=== PATIENT | female | born 1965 | race Caucasian/White ===

== ENCOUNTER → 2017-10-04 14:15 | Outpatient (CLI) | payer OTHER, SELFPAY ==
[2017-10-04 16:14] LABS: Basophil# 0.05 X10^3/uL; Basophil% 0.8 % (0-1); Eosinophil# 0.56 X10^3/uL; Eosinophils% 8.6 % (0-5); Hematocrit 39.5 % (37-47); Lymphocyte % 35.5 % (19-41); Mean Corp Hgb Conc 32.9 g/gl (32-36); Mean Corpuscular Hgb 28.7 pg (27.0-32.0); Mean Corpuscular Volume 87.2 fL (81-99); Monocyte# 0.52 X10^3/uL; Neutrophil # 2.99 X10^3/uL (2.7-7.7); Neutrophil % 46.2 % (47-70); Platelet Count 274 K/mm3 (150-450); RBC Distribution Width CV 15.6 % (11.6-14.6); RBC Distribution Width SD 49.2 fl (35.1-43.9); Red Blood Count 4.53 M/mm3 (4.2-5.4); White Blood Count 6.5 K/mm3 (4.4-11.0)
[2017-10-04 16:17] LABS: POSITIVE COUNT NO; POSITIVE DIFFERENTIAL NO; POSITIVE MORPHOLOGY NO
[2017-10-09 14:06] LABS: Aspirgillus flavus Negative (Neg:<1:1); Aspirgillus fumigatus Negative (Neg:<1:1); Aspirgillus niger Negative (Neg:<1:1)
[2017-10-10 03:06] LABS: Alternaria alternata <0.10 kU/L (Class 0); Aspergillus fumigatus <0.10 kU/L (Class 0); Bahia Grass <0.10 kU/L (Class 0); Bermuda Grass <0.10 kU/L (Class 0); Bluegrass, Kentucky <0.10 kU/L (Class 0); Cat Hair/Dander, Standard <0.10 kU/L (Class 0); Cedar, Mountain <0.10 kU/L (Class 0); Cladosporium herbarum <0.10 kU/L (Class 0); Cockroach, American <0.10 kU/L (Class 0); D farinae Mite 0.45 kU/L (Class I); D pteronyssinus 1.25 kU/L (Class II); Dog Epithelia <0.10 kU/L (Class 0); Elm, American White <0.10 kU/L (Class 0); Hazelnut Tree <0.10 kU/L (Class 0); Hickory, White <0.10 kU/L (Class 0); Johnson Grass <0.10 kU/L (Class 0); Maple/Box Elder <0.10 kU/L (Class 0); Mucor racemosus <0.10 kU/L (Class 0); Mugwort <0.10 kU/L (Class 0); Mulberry, White <0.10 kU/L (Class 0); Oak, White <0.10 kU/L (Class 0); Penicillium chrysogen <0.10 kU/L (Class 0); Pigweed, Rough <0.10 kU/L (Class 0); Plantain, English <0.10 kU/L (Class 0); Ragweed, Short/Common <0.10 kU/L (Class 0); Sheep Sorrel(Dock) <0.10 kU/L (Class 0); Stemphylium herbarum <0.10 kU/L (Class 0); Sweet Gum <0.10 kU/L (Class 0); Sycamore, American <0.10 kU/L (Class 0)
[2017-10-10 08:51] LABS: Immunoglobulin E 25 IU/mL (0-100)
[2017-10-10 08:52] LABS: Nettle <0.10 kU/L (Class 0)
== END ==
PROVIDERS: Visit Provider Internal Medicine Critical Care Medicine
DX: J45.909 Unspecified asthma, uncomplicated (principal)
CPT/HCPCS: 36415; 82785; 85025; 86003; 86606

== ENCOUNTER → 2017-11-05 14:14 | Outpatient (CLI) | payer OTHER, SELFPAY | DX: Z12.11 Encounter for screening for malignant neoplasm of colon (principal) | CPT/HCPCS: 82274 ==

== ENCOUNTER → 2017-11-09 14:59 | Outpatient (CLI) | payer OTHER, SELFPAY ==
--- NOTE | 2017-11-09 15:00 | CT_ITS ---
STUDY: CT CHEST WITHOUT CONTRAST REASON FOR EXAM: Female, 52 years old. Nodule RADIATION DOSAGE (If Supplied By Facility): CTDIvol = ( 20.15 ) mGy, DLP = ( 795.53 ) mGycm TECHNIQUE: Transaxial imaging was performed without the administration of intravenous contrast material. Individualized dose optimization techniques were used for this CT. COMPARISON: Report of prior study of 04/16/2016. Prior images were not available for comparison. FINDINGS: There is a pleural-based 6 mm nodule of the right lower lobe axial image 77. There is an additional smaller pleural-based plaque-like nodule of the right lower lobe measuring 5 mm at the base, axial image 68. There is no demonstrated pleural abnormality. Normal heart and pericardium. Normal mediastinum. Hilar areas are difficult to evaluate on this noncontrast study. There is no obvious hilar mass or adenopathy. Normal unenhanced pulmonary arteries. Normal aorta arch and descending thoracic aorta. There are degenerative changes of the visualized lower cervical spine. There is endplate spondylosis of the mid to upper thoracic spine. There is hepatomegaly. Hepatic steatosis is present. CT/Chest without Contrast IMPRESSION: Pleural-based right lower lobe nodules as detailed above. Direct comparison with prior CT of 04/16/2016 is recommended. I was unable to view the previous study. Degenerative changes of the visualized lower cervical spine. Endplate spondylosis of the mid to upper thoracic spine. Hepatomegaly. Hepatic steatosis. Electronically Signed: Chau Franco MD at 22:27 EDT , Service support ,
== END ==
PROVIDERS: Visit Provider Internal Medicine Critical Care Medicine
DX: R91.1 Solitary pulmonary nodule (principal)
CPT/HCPCS: 71250

== ENCOUNTER → 2017-11-23 09:08 | Outpatient (CLI) | payer OTHER, SELFPAY ==
--- NOTE | 2017-11-23 09:12 | US_ITS ---
STUDY: ABDOMINAL ULTRASOUND - RIGHT UPPER QUADRANT REASON FOR VISIT: Female, 52 years old. Elevated liver function tests. TECHNIQUE: Ultrasound evaluation of the right upper quadrant was performed with real-time and static magallon-scale imaging. TECHNICAL QUALITY: Limited. Examination limited due to obesity. COMPARISON: None. FINDINGS: Liver: The liver measures 14.0 cm. There is increased echogenicity consistent with fatty infiltration. The bile ducts are within normal limits. There is hepatic color flow. The direction of portal flow is hepatopetal. There is no demonstrated mass lesion. Gallbladder: Normal distended gallbladder. The gallbladder wall measures 2.0 mm. There is a negative sonographic Bhatt's sign. There is no pericholecystic fluid. There are no gallstones. Common Bile Duct (C.B.D.): The common bile duct measures 2.0 mm. Pancreas: There is nonvisualization of the pancreas due to overlying bowel gas. Right Kidney: Normal size of the right kidney. The right kidney measures 13.0 cm x 6.0 cm x 6.1 cm. Normal renal cortex. The right cortex measures 1.4 cm. There is a 1.3 cm x 1.0 cm x 1.1 cm cyst. There is no right hydronephrosis. US/Abdomen Limited IMPRESSION: Fatty infiltration of the liver. Right renal cyst. Electronically Signed: Solitario Johnston MD at 14:42 EDT Tel [phone], Service support ,
== END ==
DX: R74.8 Abnormal levels of other serum enzymes (principal)
CPT/HCPCS: 76705

== ENCOUNTER → 2018-05-23 14:03 | Outpatient (CLI) | payer OTHER, SELFPAY ==
--- NOTE | 2018-05-23 14:05 | CT_ITS ---
STUDY: CT CHEST WITHOUT CONTRAST REASON FOR EXAM: Female, 53 years old. LUNG NODULE F/U, DB, ASTHMA, COPD, EMPHYSEMA, CHF, HTN RADIATION DOSAGE (If Supplied By Facility): CTDIvol = ( 20.15 ) mGy, DLP = ( 735.08 ) mGycm TECHNIQUE: Transaxial imaging was performed without the administration of intravenous contrast material. Individualized dose optimization techniques were used for this CT. COMPARISON: Nov 09 2017 3:02pm FINDINGS: Stable prominence of the axillary lymph nodes. There is a 3.7 mm right lower lobe nodule. SE: 2 IM: 89. There is a 5.9 mm right lower lobe subpleural nodule. SE: 2 IM: 69. There is no demonstrated pleural abnormality. Normal heart and pericardium. Normal mediastinum. Normal hilar regions. Normal unenhanced pulmonary arteries. There is atherosclerotic tortuosity of the aortic arch and descending thoracic aorta. Normal osseous structures. There is no demonstrated abnormality of the visualized upper abdomen. CT/Chest without Contrast IMPRESSION: Stable right lower lobe pulmonary nodules. LUNG RADS: 3 Electronically Signed: Robbin Ling MD at 22:44 EDT , Service support ,
== END ==
PROVIDERS: Visit Provider Nurse Practitioner Acute Care
DX: R91.1 Solitary pulmonary nodule (principal)
CPT/HCPCS: 71250

== ENCOUNTER → 2018-06-09 15:25 | Outpatient (CLI) | payer OTHER, SELFPAY ==
[2018-06-09 17:58] LABS: ALB/GLOB Ratio 1.1 RATIO (0.9-2.4); AST(SGOT) 19 U/L (15-37); Alanine Aminotransfer ALT/SGPT 39 U/L (13-56); Albumin, Serum 3.7 g/dL (3.2-5.0); Alkaline Phosphatase 78 U/L (45-117); Anion Gap 7 (5-15); BUN 14 mg/dL (7-18); BUN/Creat Ratio 21.8 RATIO (10-20); Calcium,Total 8.9 mg/dL (8.5-10.1); Chloride 109 mmol/L (98-107); Creatinine, Serum 0.64 mg/dL (0.55-1.02); EST Glomerular Filtration Rate 104 mL/min (>60); Est Glom Filt Rate - Afr Amer 125 mL/min (>60); Globulin 3.5 g/dL (2.2-4.2); Glucose 104 mg/dL (74-106); Potassium 4.2 mmol/L (3.5-5.1); Protein, Total 7.2 g/dL (6.4-8.2); Sodium Level 141 mmol/L (136-145)
[2018-06-09 18:41] LABS: Microalbumin:Creatinine Ratio 52.3 mg/g CRE (<30 mg/g CRE)
== END ==
PROVIDERS: Referring Provider Nurse Practitioner; Visit Provider Nurse Practitioner
DX: E11.9 Type 2 diabetes mellitus without complications (principal)
CPT/HCPCS: 36415; 80053; 82043; 82570

== ENCOUNTER → 2018-08-05 12:03 | Outpatient (CLI) | payer OTHER, SELFPAY ==
[2018-08-05 11:17] VITALS: BMI 51.5
--- NOTE | 2018-08-05 12:05 | RAD_ITS ---
STUDY: X-RAY CHEST REASON FOR EXAM: Female, 53 years old. Short of breath TECHNIQUE: Frontal and lateral views of the chest. COMPARISON: None. FINDINGS: The lungs are clear and expanded. There is no demonstrated pleural abnormality. Normal size heart. Normal mediastinum and alicia. Normal visualized pulmonary arteries. Normal visualized aortic arch and descending thoracic aorta. Normal visualized thoracic spine. Normal visualized ribs, clavicles, and shoulders. There is no demonstrated abnormality of the visualized soft tissue structures of the upper abdomen. RAD/Chest PA and Lateral IMPRESSION: Normal x-ray examination of the chest. Electronically Signed: John Stephens MD at 23:51 EST , Service support ,
[2018-08-05 13:31] LABS: Anion Gap 11 (5-15); BUN 16 mg/dL (7-18); BUN/Creat Ratio 18.3 RATIO (10-20); Calcium,Total 9.1 mg/dL (8.5-10.1); Chloride 105 mmol/L (98-107); Creatinine, Serum 0.87 mg/dL (0.55-1.02); EST Glomerular Filtration Rate 73 mL/min (>60); Est Glom Filt Rate - Afr Amer 88 mL/min (>60); Glucose 241 mg/dL (74-106); Potassium 4.4 mmol/L (3.5-5.1); Sodium Level 139 mmol/L (136-145)
[2018-08-05 13:44] LABS: BNP,B-Type NATRIURETIC PEPTIDE 4.5 pg/mL (0-100)
== END ==
PROVIDERS: Referring Provider Nurse Practitioner Acute Care; Visit Provider Nurse Practitioner Acute Care
DX: R06.02 Shortness of breath (principal)
CPT/HCPCS: 36415; 71046; 80048; 83880

== ENCOUNTER → 2018-08-25 13:44 | Outpatient (CLI) | payer OTHER, SELFPAY ==
[2018-08-05 11:17] VITALS: BMI 51.5
--- NOTE | 2018-08-25 13:47 | ECHOD_ITS ---
Reason For Study: CHEST PAIN Procedure This was a 2D Doppler, Color Flow transthoracic echocardiogram. The exam was of adequate technical quality. Exam performed in department. Left Ventricle Normal LV size. Left ventricular systolic function is normal. The estimated ejection fraction is 65 %. Transmitral doppler flow suggestive of impaired relaxation of left ventricle. No regional wall motion abnormalities noted. Right Ventricle Normal RV size. Normal systolic function. Atria The left atrium is mildly enlarged. Normal right atrium. No doppler evidence for ASD. Mitral Valve There is no mitral annular calcification. Normal mitral valve. Trivial mitral valve insufficiency. Tricuspid Valve Normal tricuspid valve. Trivial tricuspid valve insufficiency. Aortic Valve Trisinus/trileaflet aortic valve. Mild focal aortic valve thickening. Pulmonic Valve The pulmonic valve is not well visualized. Great Vessels Normal sized aortic root. Calcified aortic root. Pericardium/Pleural No pericardial effusion. MMode/2D Measurements & Calculations LVIDd: 4.3 cm IVSd: 1.1 cm Ao root diam: 2.9 cm LVIDs: 3.0 cm LVPWd: 1.0 cm FS: 29.8 % LAV(MOD-bp): 52.5 ml LA A4 area: 18.3 cm2 LA dimension(2D): 3.7 cm LAV(MOD-bp) Indexed: 22.1 ml/m2 LAV(MOD-sp2): 57.4 ml LAV(MOD-sp4): 48.1 ml RA A4 area: 10.7 cm2 Doppler Measurements & Calculations MV E max andrea: 76.8 cm/sec Lat Peak E' Andrea: 12.3 cm/sec Med Peak E' Andrea: 9.4 cm/sec MV A max andrea: 96.9 cm/sec E/E' lat: 6.3 E/E' med: 8.2 MV E/A: 0.79 Ao V2 max: 157.2 cm/sec LV V1 max: 135.8 cm/sec PA V2 max: 101.3 cm/sec Ao max P.9 mmHg LV V1 max P.4 mmHg Interpretation Summary Left ventricular systolic function is normal. The estimated ejection fraction is 65 %. The left atrium is mildly enlarged. Trivial mitral valve insufficiency. Trivial tricuspid valve insufficiency. Mild focal aortic valve thickening. Calcified aortic root. Transmitral doppler flow suggestive of impaired relaxation of left ventricle Ordering Physician: Abel Rodriguez Referring Physician: Abel Rodriguez Performed By: Stacy Hernandez RDCS, RVT
== END ==
PROVIDERS: Referring Provider Internal Medicine Cardiovascular Disease; Visit Provider Internal Medicine Cardiovascular Disease
DX: I25.10 Atherosclerotic heart disease of native coronary artery without angina pectoris (principal); R07.9 Chest pain, unspecified
CPT/HCPCS: 93306

== ENCOUNTER → 2018-10-06 06:45 | Outpatient (CLI) | payer OTHER, SELFPAY ==
[2018-09-15 15:36] VITALS: BMI 51.5
--- NOTE | 2018-10-06 10:14 | STRESSREP ---
Stress Test Report Date: 10-06-2018 Procedure: Pharmacologic stress nuclear imaging study Indications: Chest pain; CAD Consent: Per the patient Procedure: The patient underwent pharmacologic (Regadenoson) evaluation with a peak heart rate of 120 beats per minute (71% predicted maximal heart rate) and a peak blood pressure of 140/84 mmHg. The baseline ECG demonstrated Normal sinus rhythm . The peak pharmacologic ECG demonstrated no obvious ECG changes . There were occasional PVCs pretest, during infusion, and recovery . There was no complaint of chest discomfort during pharmacologic infusion or recovery. The examination was discontinued secondary to completion of protocol. Impression: 1. Pharmacologic (Regadenoson) evaluation 2. Peak pharmacologic ECG with no obvious ECG changes . 3. There were occasional PVCs pretest, during infusion, and recovery . 4. Nuclear images pending Myocardial perfusion imaging study: Technique: The patient was injected with 14.8 millicuries of technetium 99m Cardiolite and subsequently rest SPECT Cardiolite nuclear imaging was obtained in the horizontal long, vertical long, and short axis views. The patient underwent pharmacologic (Regadenoson) evaluation with a peak heart rate of 120 beats per minute (71 % percent predicted maximal heart rate) and a peak blood pressure of 140/84 mmHg. The patient was injected with 44.7 millicuries of technetium 99m Cardiolite and subsequently stress SPECT Cardiolite nuclear imaging was obtained in the horizontal long, vertical long, and short axis views. A gated Cardiolite study at peak stress was obtained. Interpretation: Rest and stress SPECT Cardiolite nuclear imaging status post realignment, normalization, and attenuation correction demonstrate areas of an extracardiac/gastrointestinal tracer uptake near the inferior segments which appeared to be more prominent at rest as opposed a stress. There is no notation of diminished tracer uptake and portions of the distal anterior/anterior apical segments which appears to be somewhat more prominent following stress as opposed to rest. . There is end systolic thickening and brightening. The gated Cardiolite study demonstrates myocardial thickening and inward wall motion. The reported LVEF is 63 %. Impression: 1. Rest and stress SPECT Cardiolite nuclear imaging demonstrates myocardial perfusion changes appearing compatible with areas of extra cardiac/gastrointestinal tracer uptake in the inferior segments as well as notation of diminished tracer uptake in portions of the distal anterior and anteroapical segment which appears to be somewhat more prominent following stress as opposed to wrest potentially compatible with the Effexor shifting soft tissue attenuation/artifact, however, an area of myocardial ischemia cannot necessarily be excluded . 2. The gated Cardiolite study reports an LVEF of 63 %. This note was generated with [employer] software. It may contain incorrect words, spelling, and punctuation that were not noted in checking the note before signing.
--- NOTE | 2018-10-06 10:20 | STRESSREP_ITS ---
Stress Test Report Date: 10-06-2018 Procedure: Pharmacologic stress nuclear imaging study Indications: Chest pain; CAD Consent: Per the patient Procedure: The patient underwent pharmacologic (Regadenoson) evaluation with a peak heart rate of 120 beats per minute (71% predicted maximal heart rate) and a peak blood pressure of 140/84 mmHg. The baseline ECG demonstrated Normal sinus rhythm . The peak pharmacologic ECG demonstrated no obvious ECG changes . There were occasional PVCs pretest, during infusion, and recovery . There was no complaint of chest discomfort during pharmacologic infusion or recovery. The examination was discontinued secondary to completion of protocol. Impression: 1. Pharmacologic (Regadenoson) evaluation 2. Peak pharmacologic ECG with no obvious ECG changes . 3. There were occasional PVCs pretest, during infusion, and recovery . 4. Nuclear images pending Myocardial perfusion imaging study: Technique: The patient was injected with 14.8 millicuries of technetium 99m Cardiolite and subsequently rest SPECT Cardiolite nuclear imaging was obtained in the horizontal long, vertical long, and short axis views. The patient underwent pharmacologic (Regadenoson) evaluation with a peak heart rate of 120 beats per minute (71 % percent predicted maximal heart rate) and a peak blood pressure of 140/84 mmHg. The patient was injected with 44.7 millicuries of technetium 99m Cardiolite and subsequently stress SPECT Cardiolite nuclear imaging was obtained in the horizontal long, vertical long, and short axis views. A gated Cardiolite study at peak stress was obtained. Interpretation: Rest and stress SPECT Cardiolite nuclear imaging status post realignment, normalization, and attenuation correction demonstrate areas of an extracardiac/gastrointestinal tracer uptake near the inferior segments which appeared to be more prominent at rest as opposed a stress. There is no notation of diminished tracer uptake and portions of the distal anterior/anterior apical segments which appears to be somewhat more prominent following stress as opposed to rest. . There is end systolic thickening and brightening. The gated Cardiolite study demonstrates myocardial thickening and inward wall motion. The reported LVEF is 63 %. Impression: 1. Rest and stress SPECT Cardiolite nuclear imaging demonstrates myocardial p erfusion changes appearing compatible with areas of extra cardiac/gastrointestinal tracer uptake in the inferior segments as well as notation of diminished tracer uptake in portions of the distal anterior and anteroapical segment which appears to be somewhat more prominent following stress as opposed to wrest potentially compatible with the Effexor shifting soft tissue attenuation/artifact, however, an area of myocardial ischemia cannot necessarily be excluded . 2. The gated Cardiolite study reports an LVEF of 63 %. This note was generated with [employer] software. It may contain incorrect words, spelling, and punctuation that were not noted in checking the note before signing.
== END ==
PROVIDERS: Referring Provider Internal Medicine Cardiovascular Disease; Visit Provider Internal Medicine Cardiovascular Disease
DX: I25.10 Atherosclerotic heart disease of native coronary artery without angina pectoris (principal); E78.5 Hyperlipidemia, unspecified; I10 Essential (primary) hypertension
CPT/HCPCS: 78452; 93017; A9500; A4216; J2785

== ENCOUNTER 2018-10-18 07:09 | Day surgery (SDC) | payer OTHER, SELFPAY ==
[2018-09-15 15:36] VITALS: BMI 51.5
[2018-10-12 10:54] VITALS: BMI 51.5
[2018-10-12 12:24] LABS: Hematocrit 44.8 % (37-47); Hemoglobin 14.2 g/dl (12.0-15.0); Mean Corp Hgb Conc 31.7 g/gl (32-36); Mean Corpuscular Volume 94.5 fL (81-99); Mean Platelet Vol. 10.9 fl (6.2-12.0); Platelet Count 292 K/mm3 (150-450); RBC Distribution Width CV 13.6 % (11.6-14.6); Red Blood Count 4.74 M/mm3 (4.2-5.4); White Blood Count 5.8 K/mm3 (4.4-11.0)
[2018-10-12 12:28] LABS: Scan Indicated on CBC? Y/N NO
[2018-10-12 12:34] LABS: International Normalized Ratio 0.9; Partial Thromboplast Time 27.3 Seconds (24.1-36.2); Prothrombin Time (Protime)PT. 11.6 SECONDS (11.7-14.9)
[2018-10-12 13:13] LABS: Anion Gap 8 (5-15); BUN 13 mg/dL (7-18); BUN/Creat Ratio 19.1 RATIO (10-20); Chloride 103 mmol/L (98-107); Creatinine, Serum 0.68 mg/dL (0.55-1.02); EST Glomerular Filtration Rate 97 mL/min (>60); Est Glom Filt Rate - Afr Amer 117 mL/min (>60); Glucose 144 mg/dL (74-106); Potassium 4.4 mmol/L (3.5-5.1); Sodium Level 138 mmol/L (136-145)
[2018-10-17 07:26] VITALS: BMI 51.6
--- NOTE | 2018-10-18 07:43 | PCM.HP.BLA ---
History and Physical Date of Admission: 10/18/18 HPI HPI Details: RICHELLE HEREDIA, is a 53 F who presents to the diagnostic department for a left heart catheterization. She has previously been followed by PSYCHIATRIC cardiology. She has a history of underlying mild CAD, hypertension, and hyperlipidemia. At office appointment on 09/15/18 she expressed concerning symptoms for progressive coronary artery disease. She underwent a nuclear stress test on 10/06/18 that showed no obvious ECG changes and nuclear images showing area of myocardial ischemia cannot necessarily be excluded. Because of her stress test results, she will undergo a left heart catheterization for further evaluation. Her last heart catheterization was in January 2015 that showed mild disease. She continues with chest pain at rest and with exertion, which radiates to her neck and bilateral arms. Her shortness of breath and fatigue also remain. Her exercise tolerance is stable. Pt. denies symptoms of palpitations, lightheadedness, dizziness, near syncope, or syncopal episodes. Pt. denies edema or claudication issues. Pt. denies orthopnea, PND, fever, chills, blood in urine, blood in stool, or myalgia. Vital Signs: See EMR Allergies Latex, Natural Rubber Allergy (Mild, Verified 10/17/18 07:28) Medications Aspirin E.C. [Ecotrin] 81 mg PO DAILY 07/26/16 [History Confirmed 10/17/18] Lysine 1,000 mg PO DAILY 07/26/16 [History Confirmed 10/17/18] Ranitidine [Zantac] 300 mg PO DAILY 07/26/16 [History Confirmed 10/17/18] Smz/Tmp Ds [Bactrim Ds] 1 tab PO BID #6 tab 08/15/16 [Rx Confirmed 10/17/18] diphenhydramine 25 mg capsule 25 mg PO Q8H PRN 07/21/17 [History Confirmed 10/17/18] duloxetine 30 mg capsule,delayed release 30 mg PO QDAY 07/21/17 [History Confirmed 10/17/18] linaclotide 145 mcg capsule 145 mcg PO QDAY 07/21/17 [History Confirmed 10/17/18] nitroglycerin 0.4 mg sublingual tablet 0.4 mg SUBLINGUAL Q5-15M PRN 07/21/17 [History Confirmed 10/17/18] triamterene 37.5 mg-hydrochlorothiazide 25 mg tablet 1 tab PO QAM 07/21/17 [History Confirmed 10/17/18] montelukast 10 mg tablet 10 mg PO QHS #30 tab 10/04/17 [Rx Confirmed 10/17/18] loratadine 10 mg capsule 10 mg PO QDAY #30 cap 11/18/17 [Rx Confirmed 10/17/18] liraglutide 0.6 mg/0.1 mL (18 mg/3 mL) subcutaneous pen injector 0.6 mg SC QDAY #6 ml 06/09/18 [Rx Confirmed 10/17/18] pen needle, diabetic 32 gauge x 12/29 See Dose Instructions .ROUTE .MEDSUPPLY #100 ea 06/09/18 [Rx Confirmed 09/15/18] albuterol sulfate HFA 90 mcg/actuation aerosol inhaler 2 puff INHALATION Q6H PRN #1 device 06/13/18 [Rx Confirmed 10/17/18] budesonide-formoterol HFA 160 mcg-4.5 mcg/actuation aerosol inhaler 2 puff INHALATION Q12H #1 device 06/13/18 [Rx Confirmed 10/17/18] fluticasone 50 mcg/actuation nasal spray,suspension 2 spray INTRANASAL QDAY #1 device 06/13/18 [Rx Confirmed 10/17/18] metformin 1,000 mg tablet 1,000 mg PO BID #180 tab 07/19/18 [Rx Confirmed 10/18/18] buspirone 5 mg tablet 15 mg PO BID tab 09/15/18 [History Confirmed 10/17/18] gabapentin 300 mg capsule 300 mg PO BID cap 09/15/18 [History Confirmed 10/17/18] glyburide 5 mg tablet 5 mg PO BID tab 09/15/18 [History Confirmed 10/17/18] insulin glargine (U-100) 100 unit/mL (3 mL) subcutaneous pen 13 unit SC QHS ml 09/15/18 [History Confirmed 10/17/18] insulin glulisine (U- 100) 100 unit/mL subcutaneous solution 5 unit SC TID ml 09/15/18 [History Confirmed 10/17/18] levothyroxine 25 mcg tablet 25 mcg PO DAILY tab 09/15/18 [History Confirmed 10/17/18] isosorbide mononitrate ER 30 mg tablet,extended release 24 hr 15 mg PO DAILY #45 tab 09/19/18 [Rx Confirmed 10/17/18] losartan 100 mg tablet 100 mg PO DAILY #90 tab 09/19/18 [Rx Confirmed 10/17/18] metoprolol tartrate 100 mg tablet 100 mg PO BID #180 tab 09/19/18 [Rx Confirmed 10/17/18] ranolazine ER 1,000 mg tablet,extended release,12 hr 1,000 mg PO BID #180 tab 09/19/18 [Rx Confirmed 10/17/18] blood sugar diagnostic strips See Dose Instructions .ROUTE .MEDSUPPLY #50 ea 09/27/18 [Rx] blood-glucose meter See Dose Instructions .ROUTE .MEDSUPPLY #1 ea 09/27/18 [Rx] lancets See Dose Instructions .ROUTE .MEDSUPPLY #50 ea 09/27/18 [Rx] clopidogrel 75 mg tablet 75 mg PO DAILY #30 tab 10/12/18 [Rx Confirmed 10/17/18] PFSH Medical History Abnormal nuclear stress test (Acute) Chest pain (Acute) Atherosclerotic heart disease of [place] coronary artery without angina pectoris (Chronic) Essential hypertension (Chronic) Allergic rhinitis (Chronic) Pulmonary nodule (Chronic) Asthma (Chronic) COPD (chronic obstructive pulmonary disease) (Chronic) Hyperlipidemia (Chronic) Diabetes mellitus type 2, controlled (Chronic) Hypothyroidism (Chronic) Eczema (Acute) Afib (Chronic) Albuminuria (Chronic) Anemia (Chronic) Arthritis (Chronic) Cerebral atherosclerosis (Chronic) Chronic migraine (Chronic) Chronic respiratory failure with hypoxia (Chronic) Cystic fibrosis (Chronic) SUH (dyspnea on exertion) (Chronic) Depression (Chronic) Endometriosis (Chronic) Fatty liver disease, nonalcoholic (Chronic) High cholesterol (Chronic) Irritable bowel syndrome (Chronic) Nocturnal hypoxia (Chronic) Obesity (Chronic) Osteoarthritis (Chronic) Overweight (Chronic) PND (paroxysmal nocturnal dyspnea) (Chronic) Renal calculus (Chronic) Mitral valve disorder (Inactive) Surgical History H/O total hysterectomy (Resolved) History of arthroscopy of left knee (Resolved) Family History Mother CAD (coronary artery disease) Grandmother CAD (coronary artery disease) Social History Smoking Status: Never smoker second hand exposure: No alcohol intake: never substance use type: does not use caffeine: No what type of physical activity do you participate in: none ROS Const Const: Positive for fatigue; negative for weakness, frequent falls, excessive sweating, weight gain or weight loss Eyes Eyes: Negative for transient loss of vision, blurry vision or change in vision ENT ENT: Negative for dizziness or balance problems Cardio Chest Pain: Yes Frequency: daily Character: dull, tightness (heaviness) Onset: at rest Location: mid sternal (radiates down bilat UE) Duration: continuous Exacerbation: activity, rest Relieving: other (breathing) Palpitations: No Edema: None Muscle aches with walking: None Resp Respiratory: Positive for SOB with activity and Cough; negative for SOB at rest, SOB orthopnea\SOB lying down or paroxysmal nocturnal dyspnea Additional Details: Wear oxygen @ 2LNC during the day PRN and @ night, HX COPD, Asthma GI GI: Negative nausea, vomiting or vomiting blood/hematemesis : Negative for hematuria Musc Musc: Negative for balance problems Skin Skin: Negative non-healing lesions or rash Neuro Neuro: Negative for dizziness, lightheadedness, near syncope, syncope, frequent falls, weakness or blurry vision Kai Hematologic/Lymphatic: Negative for easy bleeding Endo Endo: Positive for fatigue; negative for excessive sweating Psych Psych: Positive for anxiety; negative for depression Allergy Allergy/Immunology: Negative for rash Cardiology Exam Const Appearance: cooperative, healthy appearing, comfortable, no acute distress, well developed and well groomed Nutritional Appearance: well nourished and obese Orientation: alert, awake and oriented x3 Head Head: normal to inspection, normocephalic and atraumatic Ears: hearing grossly normal bilaterally Nose: external nose normal Face and Sinus: face symmetric Mouth: oral mucosae normal Teeth and gingiva: fair dentition Eyes Eyelids: eyelids normal Conjunctivae: conjunctivae normal Pupils: PERRL EOM: EOM intact bilaterally Neck Neck: normal visual inspection and full ROM Carotids: normal carotid upstroke Chest Chest inspection: normal inspection of the chest, symmetric chest movement and normal respiratory effort Auscultation: Bilateral: Clear to Auscultation Cardio Palpation: normal PMI Rate: regular rate Rhythm: regular rhythm Heart sounds: S1 normal and S2 normal; negative rub, gallop or murmur GI GI: normal to inspection and obese Neuro General: alert, awake, oriented x3 and moves all extremities Skin Skin: no rashes or lesions noted Extremities Pulses: Normal: Right Posterior Tibial Pulse, Left Posterior Tibial Pulse, Right Radial Pulse, Left Radial Pulse Lower Extremity Edema: None: Bilateral Psych Psychological: normal affect Assessment & Plan 1. Atherosclerosis of [place] coronary artery of [place] heart without angina pectoris I25.10 MILD per cath 01/30/15 Plan - VASYL Lopez Her nuclear stress test in September 2018 showed an area of myocardial ischemia cannot be excluded. She continues with concerning symptoms this morning. She will undergo a left heart catheterization for further evaluation. Further recommendation will be made based on results of her test. She will continue with current medications. 2. Essential (primary) hypertension I10 Plan - VASYL Lopez Patient's blood pressure is well-controlled. We will continue to monitor this. We will not make any medication regimen changes. 3. Hyperlipidemia, unspecified hyperlipidemia type E78.5 Plan - VASYL Lopez She states she has been intolerant to statin medication previously due to leg weakness. Depending on results of her heart catheterization, previous mild coronary artery disease, and risk factors such as obesity and diabetes, strong lipid control is recommended. Plan Detail Additional Comments - VASYL Lopez Thank you for allowing us to participate in the patients plan of care, if you have any questions please do not hesitate to call. This note was generated using a voice recognition system and there may be incorrect words, spelling or punctuation that were not noted when reviewing the office note prior to saving. Coding Diagnoses Atherosclerosis of [place] coronary artery of [place] heart without angina pectoris I25.10 [place] vs. transplanted heart: [place] heart Essential (primary) hypertension I10 Hyperlipidemia, unspecified hyperlipidemia type E78.5 Hyperlipidemia type: unspecified Coding Diagnoses Atherosclerosis of [place] coronary artery of [place] heart without angina pectoris I25.10 [place] vs. transplanted heart: [place] heart Essential (primary) hypertension I10 Hyperlipidemia, unspecified hyperlipidemia type E78.5 Hyperlipidemia type: unspecified Supplemental Info Supplemental Information Most recently she had a transthoracic echocardiogram performed on 08/25/2912. At that time her left ventricle is normal with an LVEF of 65% with findings of mild left atrial enlargement and trivial MR/TR and mild focal aortic valve thickening and calcified aortic root. She also has impaired relaxation of the left ventricle. It appears she has undergone previous echocardiogram in June of 2015 to the [facility] system. At that time her left ventricle was normal as well with an LVEF of 57% with a report of trivial to mild MR. She underwent a pharmacologic stress nuclear imaging study through the [facility] system in July of 2016. Per their report she was noted to have a normal perfusion study and the left ventricle was normal with an LVEF and stress of 72%. Her previous cardiac catheterization was performed in January of 2015 at [facility]. Per her report the left ventricle is normal with an LVEF of 65%, the left main coronary artery apparently had no significant disease, the LAD had a mid 30 to 40% stenosis, the LCx had 20% stenosis, the RCA had the PDA and posterolateral branch 20% stenosis. She also has undergone evaluation with a Holter monitor in the past. Per records from June of 2015 that appeared she has had sinus rhythm with an average heart rate of 87 beats per minute with findings of rare supraventricular ectopic complexes and frequent 5% ventricular ectopic complexes. No symptoms were reported. Nuclear stress test from 10/06/09: Impression: 1. Pharmacologic (Regadenoson) evaluation 2. Peak pharmacologic ECG with no obvious ECG changes . 3. There were occasional PVCs pretest, during infusion, and recovery . 4. Nuclear images pending Myocardial perfusion imaging study: Impression: 1. Rest and stress SPECT Cardiolite nuclear imaging demonstrates myocardial perfusion changes appearing compatible with areas of extra cardiac/gastrointestinal tracer uptake in the inferior segments as well as notation of diminished tracer uptake in portions of the distal anterior and anteroapical segment which appears to be somewhat more prominent following stress as opposed to wrest potentially compatible with the Effexor shifting soft tissue attenuation/artifact, however, an area of myocardial ischemia cannot necessarily be excluded . 2. The gated Cardiolite study reports an LVEF of 63 %. Labs LDL Cholesterol 118 mg/dL (0-130) 02/01/17 HDL Cholesterol 31 mg/dL (40-) L 02/01/17 Triglycerides 311 mg/dL (-199) H 02/01/17 VLDL Cholesterol 62 mg/dL (5-40) H 02/01/17 Diagnostics Electrocardiogram 09/15/18 Echocardiogram 08/25/18 Stress Test Nuclear Medicine 10/06/18 Stress Test 10/06/18 Abdomen Ultrasound 11/23/17 Chest X-Ray 08/05/18 Pulmonary Pulmonary Function Test 05/07/17 Pulmonary Exercise Test 05/08/17
--- NOTE | 2018-10-18 07:46 | HP.PCM_ITS ---
History and Physical Date of Admission: 10/18/18 HPI HPI Details: RICHELLE HEREDIA, is a 53 F who presents to the diagnostic department for a left heart catheterization. She has previously been followed by [facility] cardiology. She has a history of underlying mild CAD, hypertension, and hyperlipidemia. At office appointment on 09/15/18 she expressed concerning symptoms for progressive coronary artery disease. She underwent a nuclear stress test on 10/06/18 that showed no obvious ECG changes and nuclear images showing area of myocardial ischemia cannot necessarily be excluded. Because of her stress test results, she will undergo a left heart catheterization for further evaluation. Her last heart catheterization was in January 2015 that showed mild disease. She continues with chest pain at rest and with exertion, which radiates to her neck and bilateral arms. Her shortness of breath and fatigue also remain. Her exercise tolerance is stable. Pt. denies symptoms of palpitations, lightheadedness, dizziness, near syncope, or syncopal episodes. Pt. denies edema or claudication issues. Pt. denies orthopnea, PND, fever, chills, blood in urine, blood in stool, or myalgia. Vital Signs: See EMR Allergies Latex, Natural Rubber Allergy (Mild, Verified 10/17/18 07:28) Medications Aspirin E.C. [Ecotrin] 81 mg PO DAILY 07/26/16 [History Confirmed 10/17/18] Lysine 1,000 mg PO DAILY 07/26/16 [History Confirmed 10/17/18] Ranitidine [Zantac] 300 mg PO DAILY 07/26/16 [History Confirmed 10/17/18] Smz/Tmp Ds [Bactrim Ds] 1 tab PO BID #6 tab 08/15/16 [Rx Confirmed 10/17/18] diphenhydramine 25 mg capsule 25 mg PO Q8H PRN 07/21/17 [History Confirmed 10/17/18] duloxetine 30 mg capsule,delayed release 30 mg PO QDAY 07/21/17 [History Confirmed 10/17/18] linaclotide 145 mcg capsule 145 mcg PO QDAY 07/21/17 [History Confirmed 10/17/18] nitroglycerin 0.4 mg sublingual tablet 0.4 mg SUBLINGUAL Q5-15M PRN 07/21/17 [History Confirmed 10/17/18] triamterene 37.5 mg-hydrochlorothiazide 25 mg tablet 1 tab PO QAM 07/21/17 [History Confirmed 10/17/18] montelukast 10 mg tablet 10 mg PO QHS #30 tab 10/04/17 [Rx Confirmed 10/17/18] loratadine 10 mg capsule 10 mg PO QDAY #30 cap 11/18/17 [Rx Confirmed 10/17/18] liraglutide 0.6 mg/0.1 mL (18 mg/3 mL) subcutaneous pen injector 0.6 mg SC QDAY #6 ml 06/09/18 [Rx Confirmed 10/17/18] pen needle, diabetic 32 gauge x 12/29 See Dose Instructions .ROUTE .MEDSUPPLY #100 ea 06/09/18 [Rx Confirmed 09/15/18] albuterol sulfate HFA 90 mcg/actuation aerosol inhaler 2 puff INHALATION Q6H PRN #1 device 06/13/18 [Rx Confirmed 10/17/18] budesonide-formoterol HFA 160 mcg-4.5 mcg/actuation aerosol inhaler 2 puff INHALATION Q12H #1 device 06/13/18 [Rx Confirmed 10/17/18] fluticasone 50 mcg/actuation nasal spray,suspension 2 spray INTRANASAL QDAY #1 device 06/13/18 [Rx Confirmed 10/17/18] metformin 1,000 mg tablet 1,000 mg PO BID #180 tab 07/19/18 [Rx Confirmed 10/18/18] buspirone 5 mg tablet 15 mg PO BID tab 09/15/18 [History Confirmed 10/17/18] gabapentin 300 mg capsule 300 mg PO BID cap 09/15/18 [History Confirmed 10/17/18] glyburide 5 mg tablet 5 mg PO BID tab 09/15/18 [History Confirmed 10/17/18] insulin glargine (U-100) 100 unit/mL (3 mL) subcutaneous pen 13 unit SC QHS ml 09/15/18 [History Confirmed 10/17/18] insulin glulisine (U- 100) 100 unit/mL subcutaneous solution 5 unit SC TID ml 09/15/18 [History Confirmed 10/17/18] levothyroxine 25 mcg tablet 25 mcg PO DAILY tab 09/15/18 [History Confirmed 10/17/18] isosorbide mononitrate ER 30 mg tablet,extended release 24 hr 15 mg PO DAILY #45 tab 09/19/18 [Rx Confirmed 10/17/18] losartan 100 mg tablet 100 mg PO DAILY #90 tab 09/19/18 [Rx Confirmed 10/17/18] metoprolol tartrate 100 mg tablet 100 mg PO BID #180 tab 09/19/18 [Rx Confirmed 10/17/18] ranolazine ER 1,000 mg tablet,extended release,12 hr 1,000 mg PO BID #180 tab 09/19/18 [Rx Confirmed 10/17/18] blood sugar diagnostic strips See Dose Instructions .ROUTE .MEDSUPPLY #50 ea 09/27/18 [Rx] blood-glucose meter See Dose Instructions .ROUTE .MEDSUPPLY #1 ea 09/27/18 [Rx] lancets See Dose Instructions .ROUTE .MEDSUPPLY #50 ea 09/27/18 [Rx] clopidogrel 75 mg tablet 75 mg PO DAILY #30 tab 10/12/18 [Rx Confirmed 10/17/18] PFSH Medical History Abnormal nuclear stress test (Acute) Chest pain (Acute) Atherosclerotic heart disease of [place] coronary artery without angina pectoris (Chronic) Essential hypertension (Chronic) Allergic rhinitis (Chronic) Pulmonary nodule (Chronic) Asthma (Chronic) COPD (chronic obstructive pulmonary disease) (Chronic) Hyperlipidemia (Chronic) Diabetes mellitus type 2, controlled (Chronic) Hypothyroidism (Chronic) Eczema (Acute) Afib (Chronic) Albuminuria (Chronic) Anemia (Chronic) Arthritis (Chronic) Cerebral atherosclerosis (Chronic) Chronic migraine (Chronic) Chronic respiratory failure with hypoxia (Chronic) Cystic fibrosis (Chronic) SUH (dyspnea on exertion) (Chronic) Depression (Chronic) Endometriosis (Chronic) Fatty liver disease, nonalcoholic (Chronic) High cholesterol (Chronic) Irritable bowel syndrome (Chronic) Nocturnal hypoxia (Chronic) Obesity (Chronic) Osteoarthritis (Chronic) Overweight (Chronic) PND (paroxysmal nocturnal dyspnea) (Chronic) Renal calculus (Chronic) Mitral valve disorder (Inactive) Surgical History H/O total hysterectomy (Resolved) History of arthroscopy of left knee (Resolved) Family History Mother CAD (coronary artery disease) Grandmother CAD (coronary artery disease) Social History Smoking Status: Never smoker second hand exposure: No alcohol intake: never substance use type: does not use caffeine: No what type of physical activity do you participate in: none ROS Const Const: Positive for fatigue; negative for weakness, frequent falls, excessive sweating, weight gain or weight loss Eyes Eyes: Negative for transient loss of vision, blurry vision or change in vision ENT ENT: Negative for dizziness or balance problems Cardio Chest Pain: Yes Frequency: daily Character: dull, tightness (heaviness) Onset: at rest Location: mid sternal (radiates down bilat UE) Duration: continuous Exacerbation: activity, rest Relieving: other (breathing) Palpitations: No Edema: None Muscle aches with walking: None Resp Respiratory: Positive for SOB with activity and Cough; negative for SOB at rest, SOB orthopnea\SOB lying down or paroxysmal nocturnal dyspnea Additional Details: Wear oxygen @ 2LNC during the day PRN and @ night, HX COPD, Asthma GI GI: Negative nausea, vomiting or vomiting blood/hematemesis : Negative for hematuria Musc Musc: Negative for balance problems Skin Skin: Negative non-healing lesions or rash Neuro Neuro: Negative for dizziness, lightheadedness, near syncope, syncope, frequent falls, weakness or blurry vision Kai Hematologic/Lymphatic: Negative for easy bleeding Endo Endo: Positive for fatigue; negative for excessive sweating Psych Psych: Positive for anxiety; negative for depression Allergy Allergy/Immunology: Negative for rash Cardiology Exam Const Appearance: cooperative, healthy appearing, comfortable, no acute distress, well developed and well groomed Nutritional Appearance: well nourished and obese Orientation: alert, awake and oriented x3 Head Head: normal to inspection, normocephalic and atraumatic Ears: hearing grossly normal bilaterally Nose: external nose normal Face and Sinus: face symmetric Mouth: oral mucosae normal Teeth and gingiva: fair dentition Eyes Eyelids: eyelids normal Conjunctivae: conjunctivae normal Pupils: PERRL EOM: EOM intact bilaterally Neck Neck: normal visual inspection and full ROM Carotids: normal carotid upstroke Chest Chest inspection: normal inspection of the chest, symmetric chest movement and normal respiratory effort Auscultation: Bilateral: Clear to Auscultation Cardio Palpation: normal PMI Rate: regular rate Rhythm: regular rhythm Heart sounds: S1 normal and S2 normal; negative rub, gallop or murmur GI GI: normal to inspection and obese Neuro General: alert, awake, oriented x3 and moves all extremities Skin Skin: no rashes or lesions noted Extremities Pulses: Normal: Right Posterior Tibial Pulse, Left Posterior Tibial Pulse, Right Radial Pulse, Left Radial Pulse Lower Extremity Edema: None: Bilateral Psych Psychological: normal affect Assessment & Plan 1. Atherosclerosis of [place] coronary artery of [place] heart without angina pectoris I25.10 MILD per cath 01/30/15 Plan - VASYL Lopez Her nuclear stress test in September 2018 showed an area of myocardial ischemia cannot be excluded. She continues with concerning symptoms this morning. She will undergo a left heart catheterization for further evaluation. Further recommendation will be made based on results of her test. She will continue with current medications. 2. Essential (primary) hypertension I10 Plan - VASYL Lopez Patient's blood pressure is well-controlled. We will continue to monitor this. We will not make any medication regimen changes. 3. Hyperlipidemia, unspecified hyperlipidemia type E78.5 Plan - VASYL Lopez She states she has been intolerant to statin medication previously due to leg weakness. Depending on results of her heart catheterization, previous mild cor onary artery disease, and risk factors such as obesity and diabetes, strong lipid control is recommended. Plan Detail Additional Comments - VASYL Lopez Thank you for allowing us to participate in the patients plan of care, if you have any questions please do not hesitate to call. This note was generated using a voice recognition system and there may be incorrect words, spelling or punctuation that were not noted when reviewing the office note prior to saving. Coding Diagnoses Atherosclerosis of [place] coronary artery of [place] heart without angina pectoris I25.10 [place] vs. transplanted heart: [place] heart Essential (primary) hypertension I10 Hyperlipidemia, unspecified hyperlipidemia type E78.5 Hyperlipidemia type: unspecified Coding Diagnoses Atherosclerosis of [place] coronary artery of [place] heart without angina pectoris I25.10 [place] vs. transplanted heart: [place] heart Essential (primary) hypertension I10 Hyperlipidemia, unspecified hyperlipidemia type E78.5 Hyperlipidemia type: unspecified Supplemental Info Supplemental Information Most recently she had a transthoracic echocardiogram performed on 08/25/2912. At that time her left ventricle is normal with an LVEF of 65% with findings of mild left atrial enlargement and trivial MR/TR and mild focal aortic valve thickening and calcified aortic root. She also has impaired relaxation of the left ve ntricle. It appears she has undergone previous echocardiogram in June of 2015 to the [facility] system. At that time her left ventricle was normal as well with an LVEF of 57% with a report of trivial to mild MR. She underwent a pharmacologic stress nuclear imaging study through the [facility] system in July of 2016. Per their report she was noted to have a normal perfusion study and the left ventricle was normal with an LVEF and stress of 72%. Her previous cardiac catheterization was performed in January of 2015 at [facility]. Per her report the left ventricle is normal with an LVEF of 65%, the left main coronary artery apparently had no significant disease, the LAD had a mid 30 to 40% stenosis, the LCx had 20% stenosis, the RCA had the PDA and posterolateral branch 20% stenosis. She also has undergone evaluation with a Holter monitor in the past. Per records from June of 2015 that appeared she has had sinus rhythm with an average heart rate of 87 beats per minute with findings of rare supraventricular ectopic complexes and frequent 5% ventricular ectopic complexes. No symptoms were reported. Nuclear stress test from 10/06/09: Impression: 1. Pharmacologic (Regadenoson) evaluation 2. Peak pharmacologic ECG with no obvious ECG changes . 3. There were occasional PVCs pretest, during infusion, and recovery . 4. Nuclear images pending Myocardial perfusion imaging study: Impression: 1. Rest and stress SPECT Cardiolite nuclear imaging demonstrates myocardial perfusion changes appearing compatible with areas of extra cardiac/gastrointestinal tracer uptake in the inferior segments as well as notation of diminished tracer uptake in portions of the distal anterior and anteroapical segment which appears to be somewhat more prominent following stress as opposed to wrest potentially compatible with the Effexor shifting soft tissue attenuation/artifact, however, an area of myocardial ischemia cannot necessarily be excluded . 2. The gated Cardiolite study reports an LVEF of 63 %. Labs LDL Cholesterol 118 mg/dL (0-130) 02/01/17 HDL Cholesterol 31 mg/dL (40-) L 02/01/17 Triglycerides 311 mg/dL (-199) H 02/01/17 VLDL Cholesterol 62 mg/dL (5-40) H 02/01/17 Diagnostics Electrocardiogram 09/15/18 Echocardiogram 08/25/18 Stress Test Nuclear Medicine 10/06/18 Stress Test 10/06/18 Abdomen Ultrasound 11/23/17 Chest X-Ray 08/05/18 Pulmonary Pulmonary Function Test 05/07/17 Pulmonary Exercise Test 05/08/17
--- NOTE | 2018-10-18 11:55 | CL.D_ITS ---
Patient Name: RICHELLE HREEDIA Study Date: 10/18/2018 Performing: Jonny Villagomez MD Ht: 66.14 inches 168 cm : 1965 Wt: 319.67 lbs 145 kg Age: 53 Gender: female BSA: 2.45 PROCEDURE(S) PERFORMED II56-AZD/COR/LV CLINICAL PROFILE AND INDICATIONS Indications: Suspected CAD, Suspected CAD Heart Failure: None Stress/Imaging Stress Test w/SPECT MPI: Yes Result: PositiveStress Test with SPECT MPI: Positive Angina Classification Anginal Classification w/in 2 Weeks: CCS III CAD Presentations: Other: Chest Pain / Shortness of Breath Other: Chest Pain / Shortness of Breat h CONCLUSIONS Normal Left Ventricular End Diastolic Pressure Normal LV size, wall motion,and systolic function LVEF: by LV gram 65 % Normal coronary arteries RECOMMENDATIONS Risk factor modification Medical therapy DESCRIPTION OF PROCEDURE The patient arrived to the procedure lab. The risks and benefits of the procedure as well as a full d escription of our services here and current unavailability of surgical backup were fully explained to the patient and/or their significant other prior to the catheterization. The Timeout was completed, verifying the correct patient and procedure. The patient's procedural site was prepped and draped in the usual fashion. Local anesthetic was given subcutaneously to right radial region with Lidocaine 2% . Using a modified Seldinger technique, arterial access was obtained via the right radial artery, a 6 Fr sheath was inserted. Right Coronary Artery selective angiography was then performed in multiple v iews using a 5 Fr. 4.0 Arimo catheter. Left Coronary Artery selective angiography was performed in mu ltiple views using a 5 Fr. 4.0 Arimo catheter. Left Ventriculography was performed in MIRANDA projection using a 5 Fr. Pigtail catheter. LV to AO pullback pressures were then recorded.The arterial sheath was pulled and a TR Band was applied for hemostasis w/ 12ml air CORONARY ANGIOGRAPHY DOMINANCE: Right Dominant LEFT HEART ASSESSMENT Left Ventricular Ejection Fraction: by LV Gram 65 % Normal LV wall motion Normal Left Ventricular End Diastolic Pressure LVEDP: 12 mmHg LEFT MAIN: Angiographically normal LEFT ANTERIOR DECENDING ARTERY: Angiographically normal CIRCUMFLEX ARTERY: Angiographically normal RIGHT CORONARY ARTERY: Angiographically normal VALVE FINDINGS: Normal Aortic Valve function Normal Mitral Valve function AORTIC ROOT: Angiographically normal COMPLICATIONS No Complications PROCEDURE MEDICATIONS Fentanyl 50 mcg IV Versed 1 mg IV Versed 1 mg IV Fentanyl 50 mcg IV Oxygen: 2 L/min via nasal cannula Baby Aspirin (81mg) 1 Tabs PO @ 10/18/2018 07:36:37 Heparin diluted in 23cc Heparinized saline. Patient given 10cc IA of this solution. 10/18/2018 10:31:1 7 Plavix 75 mg PO 10/18/2018 07:36:46 Verapamil 2.5mg, Ntg 100mcgs, 2000 units of Heparin diluted in 23cc Heparinized saline. Patient give n 10cc IA of this solution. 10/18/2018 10:31:17 SUMMARY OF HEMODYNAMIC DATA Time AIR REST ECG 07:40:45 AO 105/65 (78) SA 10:33:11 LV 111/2, 16 10:43:27 LV 117/1, 12 10:43:33 LV 115/5, 11 10:44:46 LVp 116/-3, 10 10:44:52 AOp 117/73 (93) 10:44:57 Signed By Jonny Villgaomez MD On 10/18/2018 11:54:24 AM Jonny Villagomez MD
== END 2018-10-18 15:15 | disposition home or self-care (01) ==
LOC: CLSP 07:11
PROVIDERS: PCP Family Medicine; Referring Provider Internal Medicine Cardiovascular Disease; Visit Provider Internal Medicine Cardiovascular Disease
DX: I25.10 Atherosclerotic heart disease of native coronary artery without angina pectoris (principal); E78.5 Hyperlipidemia, unspecified; I10 Essential (primary) hypertension; R53.83 Other fatigue; Z79.899 Other long term (current) drug therapy; Z79.82 Long term (current) use of aspirin; Z79.02 Long term (current) use of antithrombotics/antiplatelets; Z79.4 Long term (current) use of insulin; J44.9 Chronic obstructive pulmonary disease, unspecified; E11.9 Type 2 diabetes mellitus without complications; E03.9 Hypothyroidism, unspecified; I48.2 Chronic atrial fibrillation; J96.10 Chronic respiratory failure, unspecified whether with hypoxia or hypercapnia; E66.9 Obesity, unspecified; Z68.43 Body mass index [BMI] 50.0-59.9, adult; Z71.3 Dietary counseling and surveillance; Z82.49 Family history of ischemic heart disease and other diseases of the circulatory system
CPT/HCPCS: 36415; 80048; 85027; 85610; 85730; 93458; 99152; 99153; J7040; C1769; C1894; Q9967

== ENCOUNTER → 2018-10-20 14:25 | Outpatient (CLI) | payer OTHER, SELFPAY ==
[2018-10-20 14:25] VITALS: BMI 51.5
[2018-10-20 16:58] LABS: Anion Gap 7 (5-15); BUN 15 mg/dL (7-18); BUN/Creat Ratio 22.1 RATIO (10-20); Calcium,Total 9.1 mg/dL (8.5-10.1); Chloride 105 mmol/L (98-107); Creatinine, Serum 0.68 mg/dL (0.55-1.02); EST Glomerular Filtration Rate 97 mL/min (>60); Est Glom Filt Rate - Afr Amer 117 mL/min (>60); Glucose 74 mg/dL (74-106); Sodium Level 138 mmol/L (136-145)
== END ==
PROVIDERS: PCP Family Medicine; Referring Provider Internal Medicine Cardiovascular Disease; Visit Provider Internal Medicine Cardiovascular Disease
DX: I25.10 Atherosclerotic heart disease of native coronary artery without angina pectoris (principal); R07.9 Chest pain, unspecified
CPT/HCPCS: 36415; 80048

== ENCOUNTER → 2018-11-07 15:41 | Outpatient (CLI) | payer OTHER, SELFPAY ==
[2018-11-07 15:07] VITALS: BMI 51.5
[2018-11-07 16:35] LABS: Hemoglobin A1c 6.8 % (4.2-6.3)
[2018-11-07 19:31] LABS: Microalbumin,Random Urine 81.2 mg/L (NO RANGE EST.); Microalbumin:Creatinine Ratio 41.9 mg/g CRE (<30 mg/g CRE)
== END ==
PROVIDERS: Referring Provider Nurse Practitioner; Visit Provider Nurse Practitioner
DX: E11.9 Type 2 diabetes mellitus without complications (principal)
CPT/HCPCS: 36415; 82043; 82570; 83036

== ENCOUNTER → 2018-11-14 15:37 | Outpatient (CLI) | payer OTHER, SELFPAY ==
[2018-11-07 15:07] VITALS: BMI 51.5
== END ==
PROVIDERS: Referring Provider Internal Medicine Cardiovascular Disease; Visit Provider Internal Medicine Cardiovascular Disease
DX: S55.101A Unspecified injury of radial artery at forearm level, right arm, initial encounter (principal)
CPT/HCPCS: 93931

== ENCOUNTER 2019-01-26 10:57 | Emergency (ER) | payer OTHER, SELFPAY ==
[2018-12-14 13:59] VITALS: BMI 50.3
[2019-01-26] VITALS (8 sets, daily range): BP systolic 126–142; BP diastolic 74–102; PULSE 90–100; RESP 14–19; TEMP 35.9; O2SAT 96–97; BMI 49.5
--- NOTE | 2019-01-26 11:35 | EKG12_ITS ---
Test Reason : SOB/CP Blood Pressure : / mmHG Vent. Rate : 088 BPM Atrial Rate : 088 BPM P-R Int : 166 ms QRS Dur : 090 ms QT Int : 372 ms P-R-T Axes : 055 061 059 degrees QTc Int : 450 ms Normal sinus rhythm Low voltage QRS Borderline ECG Confirmed by AMARJIT DE ([id number]), senior editor ОЛЬГА DURHAM ([id number]) on 01/30/2019 1:23:10 PM Referred By: CHELA/RADHA Confirmed By:EVELINE DE
--- NOTE | 2019-01-26 11:35 | CT_ITS ---
STUDY: CT BRAIN WITHOUT CONTRAST REASON FOR EXAM: Female, 53 years old. Dizziness and headache. RADIATION DOSAGE (If Supplied By Facility): CTDIvol = ( 44.99 ) mGy, DLP = ( 745.49 ) mGycm TECHNIQUE: Transaxial CT imaging of the brain was performed without administration of intravenous contrast material. Individualized dose optimization techniques were used for this CT. COMPARISON: No relevant priors. FINDINGS: Normal soft tissue structures. Normal calvarium. Abnormal appearance of the right insular region where there is elongated and rather large parenchymal defect from previous infarct, seen on axial images 17-20. Abnormal appearance of the white matter of the more cranial right frontal and parietal lobes where there appears to be a vasogenic pattern of white matter edema. This can be seen with underlying neoplasm and contrast MRI is recommended. See axial images 21-30. There is no significant mass effect however. No midline shift or effacement of sulci. No evidence for hemorrhage. Left cerebral hemisphere is normal. Normal ventricles. There are small punctate calcifications of the basal ganglia which are seen in the aging brain as a normal variant. Normal brainstem. Normal cerebellum. Normal visualized paranasal sinuses. CT/Brain/Head without Contrast IMPRESSION: Large remote lacunar infarct of the right insula. Abnormal edema pattern in the right cerebral hemisphere, neoplasm is not excluded, recommend MRI with contrast. N.B. : The above information has been verbally conveyed by John Stephens MD to Manas Arenas MD, on 01/26/2019 13:31:28 (ET). Electronically Signed: oJhn Stephens MD at 13:18 EDT , Service support ,
--- NOTE | 2019-01-26 11:43 | RAD_ITS ---
STUDY: X-RAY CHEST REASON FOR EXAM: Female, 53 years old. Chest pain TECHNIQUE: Single AP portable view of the chest. COMPARISON: 08/05/2018 FINDINGS: The lungs are clear and expanded. There is no demonstrated pleural abnormality. Normal size heart. Normal mediastinum and alicia. Normal visualized pulmonary arteries. Normal visualized aortic arch and descending thoracic aorta. Normal visualized thoracic spine. Normal visualized ribs, clavicles, and shoulders. There is no demonstrated abnormality of the visualized soft tissue structures of the upper abdomen. RAD/Chest 1 View (Portable) IMPRESSION: Normal x-ray examination of the chest. Electronically Signed: John Stephens MD at 12:06 EDT , Service support ,
[2019-01-26 12:23] LABS: Absolute Lymphocyte Count 2.02 X10^3/ul (0.83-4.51); Absolute Neutrophil Count 3.7 X10^3/uL (2.0-7.7); Basophil# 0.02 X10^3/uL; Basophil% 0.3 % (0-1); Eosinophil# 0.42 X10^3/uL; Eosinophils% 6.3 % (0-5); Hematocrit 43.4 % (37-47); Hemoglobin 14.2 g/dl (12.0-15.0); Lymphocyte # 2.02 X10^3/ul (4.0); Lymphocyte % 30.1 % (19-41); Mean Corp Hgb Conc 32.7 g/gl (32-36); Mean Corpuscular Hgb 29.5 pg (27.0-32.0); Mean Platelet Vol. 10.7 fl (6.2-12.0); Monocyte# 0.51 X10^3/uL; Monocyte% 7.6 % (0-10); Neutrophil # 3.71 X10^3/uL (2.7-7.7); Neutrophil % 55.4 % (47-70); Platelet Count 260 K/mm3 (150-450); RBC Distribution Width CV 14.5 % (11.6-14.6); RBC Distribution Width SD 47.6 fl (35.1-43.9); Red Blood Count 4.82 M/mm3 (4.2-5.4); White Blood Count 6.7 K/mm3 (4.4-11.0)
[2019-01-26 12:26] LABS: POSITIVE COUNT NO; POSITIVE DIFFERENTIAL NO; POSITIVE MORPHOLOGY NO
[2019-01-26 12:38] LABS: Anion Gap 3 (5-15); BUN 15 mg/dL (7-18); BUN/Creat Ratio 19.6 RATIO (10-20); Chloride 107 mmol/L (98-107); Creatinine, Serum 0.76 mg/dL (0.55-1.02); EST Glomerular Filtration Rate 85 mL/min (>60); Est Glom Filt Rate - Afr Amer 102 mL/min (>60); Estimated Creatinine Clearance 81.98 ml/min; Glucose 173 mg/dL (74-106); Sodium Level 138 mmol/L (136-145)
--- NOTE | 2019-01-26 15:14 | ED.VISSUMM ---
- ER Visit Summary Date of Service: 01/26/19 Chief Complaint: Pain History of Present Illness: The patient is a 53 F with a headache, left face pain. The pain has been going on for days. It radiates down into her left arm and back. Patient was concerned it might be heart related. She tells me she has a history of coronary disease. She takes aspirin and Plavix. She said she had a cardiac catheterization in October of this year which was unremarkable. She was planning to wear a heart monitor for 30 days, starting today. Patient also has a history of diabetes, hypertension, hyperlipidemia, COPD, and atrial fibrillation. Physical Examination: Afebrile and vital signs are unremarkable. Head and neck are atraumatic. HEENT exam unremarkable. Heart regular. Lungs clear. Abdomen soft. Skin appears normal. Cranial nerves grossly intact. Normal strength and sensation. Patient exhibits myoclonic jerks that primarily involve her left arm randomly and intermittently. Test Results: EKG showed sinus rhythm at a rate of 88. Chest x-ray was normal. Troponin normal. CBC and BMP unremarkable. CT brain showed right cerebral edema concerning for an underlying mass. Patient will need follow-up MRI. Emergency Department Course and Treatment: Patient's work-up as above showed right cerebral edema with possible underlying mass. Patient is symptomatic and needs further imaging. Neurosurgery is not available at this facility. We contacted [facility] and [facility], and beds are not available. [facility] was contacted and will accept the patient for further care. Treatment Plan: As above Disposition: Transfer Impression: 1. Right cerebral mass This note was generated with Teleport dictation software. It may contain incorrect words, spelling, and punctuation that were not noted in review of the chart prior to signing ED Disposition - Plan for ED Patient: Referrals: Sanjana Chun MD [Primary Care Provider] -
[2019-01-26] MEDS: Ondansetron 4 MG/2 ML Vial IV (15:35)
[2019-01-26] MEDS: proMETHazine 25 MG/ML Syringe 6.25 MG IV (18:24)
--- NOTE | 2019-01-26 20:02 | ED.RN ---
CALLED [facility] TO CHECK THE STATUS OF TRANSPORT SCHEDULED FOR 1929, PER JAIME THEY ARE IN ROUTE FROM [facility] AT THIS TIME
[2019-01-26 20:16] LABS: Bedside Glucose 102 mg/dL (70-110)
--- NOTE | 2019-01-26 20:17 | NURSING ---
OK FOR PO INTAKE AT THIS TIME, PER DR ARAUZ
--- NOTE | 2019-01-26 20:31 | ED.RN ---
PER [facility] DISPATCH, THEY ARE GOING TO BE DELAYED ANOTHER TWO HOURS FROM THIS TIME.
--- NOTE | 2019-01-26 20:46 | ED.RN ---
CALLED [facility], THEY WILL BE HERE IN ABOUT ONE HOUR
--- NOTE | 2019-01-26 21:13 | ED.RN ---
ATTEMPTED TO REACH [facility] FOR CONSENT TO TREAT AT [phone]. RECEIVED VM AND LM
[2019-01-26] MEDS: Losartan Potassium 100 MG Tablet PO (21:40)
[2019-01-26] MEDS: busPIRone 15 MG TABLET PO (21:40)
[2019-01-26] MEDS: metFORMIN HCl 1,000 MG Tablet 1000 MG PO (21:40)
[2019-01-26] MEDS: Gabapentin 300 MG Capsule PO (21:40)
[2019-01-26] MEDS: Ranolazine 500 MG Tablet 1000 MG PO (21:40)
[2019-01-26] MEDS: Aspirin 81 MG TAB.CHEW PO (21:45)
[2019-01-26] MEDS: Acetaminophen 325 MG Tablet 650 MG PO (23:16)
== END 2019-01-26 23:31 | disposition short-term general hospital (02) ==
LOC: ED 11:44
PROVIDERS: Emergency Provider Emergency Medicine; PCP Family Medicine
DX: G93.9 Disorder of brain, unspecified (principal); I25.10 Atherosclerotic heart disease of native coronary artery without angina pectoris; J44.9 Chronic obstructive pulmonary disease, unspecified; E11.9 Type 2 diabetes mellitus without complications; I10 Essential (primary) hypertension; E78.00 Pure hypercholesterolemia, unspecified; I48.91 Unspecified atrial fibrillation; Z79.82 Long term (current) use of aspirin; Z79.02 Long term (current) use of antithrombotics/antiplatelets; Z79.4 Long term (current) use of insulin; Z79.84 Long term (current) use of oral hypoglycemic drugs; Z79.899 Other long term (current) drug therapy
CPT/HCPCS: 70450; 71045; 80048; 82962; 84484; 85025; 93005; 96374; 96375; 99285; A4216; J2405

== ENCOUNTER → 2019-02-08 | Outpatient (REF) | payer OTHER, SELFPAY ==
[2018-12-14 13:59] VITALS: BMI 50.3
[2019-01-26 10:58] VITALS: BMI 49.5
== END | disposition home or self-care (01) ==
LOC: CVS 13:03
PROVIDERS: PCP Family Medicine; Referring Provider Nurse Practitioner Family; Visit Provider Nurse Practitioner Family
DX: I25.10 Atherosclerotic heart disease of native coronary artery without angina pectoris (principal); R00.2 Palpitations
CPT/HCPCS: 93270

== ENCOUNTER → 2019-03-09 | Outpatient (CLI) | payer OTHER, SELFPAY ==
[2019-03-03 13:12] VITALS: BMI 55.0
[2019-03-09 09:47] LABS: ALB/GLOB Ratio 1.2 RATIO (0.9-2.4); AST(SGOT) 12 U/L (15-37); Alanine Aminotransfer ALT/SGPT 33 U/L (13-56); Albumin, Serum 3.9 g/dL (3.2-5.0); Alkaline Phosphatase 65 U/L (45-117); Anion Gap 10 (5-15); BUN 19 mg/dL (7-18); BUN/Creat Ratio 24.1 RATIO (10-20); Calcium,Total 9.3 mg/dL (8.5-10.1); Chloride 103 mmol/L (98-107); Creatinine, Serum 0.79 mg/dL (0.55-1.02); EST Glomerular Filtration Rate 82 mL/min (>60); Est Glom Filt Rate - Afr Amer 99 mL/min (>60); Globulin 3.3 g/dL (2.2-4.2); Glucose 114 mg/dL (74-106); Protein, Total 7.2 g/dL (6.4-8.2); Sodium Level 141 mmol/L (136-145)
[2019-03-09 09:56] LABS: Valproic Acid (Depakene) Level 35 ug/mL (50-100)
[2019-03-14 14:28] LABS: KEPPRA (LEVETIRACETAM) 1.2 ug/mL (10.0-40.0)
== END | disposition home or self-care (01) ==
LOC: LAB.FUTURE 08:31
PROVIDERS: Visit Provider Psychiatry & Neurology Neurology
DX: R56.9 Unspecified convulsions (principal)
CPT/HCPCS: 36415; 80053; 80164; 80177

== ENCOUNTER → 2019-04-04 | Outpatient (CLI) | payer OTHER, SELFPAY ==
[2019-03-03 13:12] VITALS: BMI 55.0
[2019-04-04 09:03] LABS: Absolute Lymphocyte Count 1.99 X10^3/uL (0.83-4.51); Absolute Neutrophil Count 3.8 X10^3/uL (2.0-7.7); Basophil# 0.04 X10^3/uL; Basophil% 0.6 % (0-1); Eosinophil# 0.36 X10^3/uL; Eosinophils% 5.3 % (0-5); Hematocrit 43.9 % (37-47); Lymphocyte # 1.99 X10^3/ul (4.0); Lymphocyte % 29.4 % (19-41); Mean Corp Hgb Conc 31.9 g/dL (32-36); Mean Corpuscular Hgb 29.9 pg (27.0-32.0); Mean Corpuscular Volume 93.6 fL (81-99); Mean Platelet Vol. 10.7 fl (6.2-12.0); Monocyte# 0.53 X10^3/uL; Monocyte% 7.8 % (0-10); NRBC Flagged by Analyzer 0 % (0-5); Neutrophil # 3.79 X10^3/uL (2.7-7.7); Neutrophil % 55.9 % (47-70); Platelet Count 231 K/mm3 (150-450); RBC Distribution Width CV 14.8 % (11.6-14.6); RBC Distribution Width SD 51.3 fl (35.1-43.9); Red Blood Count 4.69 M/mm3 (4.2-5.4); White Blood Count 6.8 K/mm3 (4.4-11.0)
--- NOTE | 2019-04-04 09:06 | RAD_ITS ---
STUDY: X-RAY - CERVICAL SPINE REASON FOR EXAM: Female, 53 years old. Pain TECHNIQUE: 9 view(s) of the cervical spine were obtained including flexion-extension views. COMPARISON: None FINDINGS: There are degenerative changes of the anterior atlantoaxial articulation. Intact odontoid process. Normal cervical lordosis. There is multi-level endplate spondylosis. There is multi-level degenerative disc disease with multilevel disc space narrowing. Narrowing of the right C4-5, C5-6, C6-7, and left C3-4, C5-6, and C6-7 intervertebral neuroforamina. The soft tissue structures are unremarkable. There is no demonstrated fracture of the cervical spine. RAD/Cerv Spine Obl/Flex/Ext Comp IMPRESSION: No acute displaced fracture, or traumatic subluxation based on current assessment. Multilevel degenerative disc disease. Narrowing of the right C4-5, C5-6, C6-7, and left C3-4, C5-6, and C6-7 intervertebral neuroforamina. Electronically Signed: Nikita Candelario MD at 15:09 EDT Tel [phone], Service support ,
[2019-04-04 09:28] LABS: Valproic Acid (Depakene) Level 34 ug/mL (50-100)
[2019-04-04 09:31] LABS: AST(SGOT) 12 U/L (15-37); Alanine Aminotransfer ALT/SGPT 30 U/L (13-56); Albumin, Serum 3.6 g/dL (3.2-5.0); Alkaline Phosphatase 61 U/L (45-117); Bilirubin, Direct 0.07 mg/dL (0.00-0.30); Globulin 3.4 g/dL (2.2-4.2)
[2019-04-07 13:31] LABS: KEPPRA (LEVETIRACETAM) 4.5 ug/mL (10.0-40.0)
== END | disposition home or self-care (01) ==
LOC: LAB 08:33
PROVIDERS: Referring Provider Psychiatry & Neurology Neurology; Visit Provider Psychiatry & Neurology Neurology
DX: M54.2 Cervicalgia (principal); I67.9 Cerebrovascular disease, unspecified; R23.3 Spontaneous ecchymoses; R56.9 Unspecified convulsions
CPT/HCPCS: 36415; 72052; 80076; 80164; 80177; 85025

== ENCOUNTER → 2019-06-05 11:06 | Outpatient (CLI) | payer OTHER, SELFPAY ==
[2019-03-03 13:12] VITALS: BMI 55.0
[2019-06-05 12:29] LABS: Valproic Acid (Depakene) Level 72 ug/mL (50-100)
[2019-06-05 12:30] LABS: AST(SGOT) 24 U/L (15-37); Alanine Aminotransfer ALT/SGPT 46 U/L (13-56); Albumin, Serum 3.6 g/dL (3.2-5.0); Alkaline Phosphatase 72 U/L (45-117); Anion Gap 7 (5-15); BUN 13 mg/dL (7-18); Calcium,Total 8.7 mg/dL (8.5-10.1); Chloride 103 mmol/L (98-107); Creatinine, Serum 0.68 mg/dL (0.55-1.02); EST Glomerular Filtration Rate 96 mL/min (>60); Est Glom Filt Rate - Afr Amer 116 mL/min (>60); Globulin 3.5 g/dL (2.2-4.2); Glucose 142 mg/dL (74-106); Potassium 4.5 mmol/L (3.5-5.1); Protein, Total 7.1 g/dL (6.4-8.2); Sodium Level 138 mmol/L (136-145)
== END ==
PROVIDERS: Referring Provider Psychiatry & Neurology Neurology; Visit Provider Psychiatry & Neurology Neurology
DX: G43.119 Migraine with aura, intractable, without status migrainosus (principal); I67.9 Cerebrovascular disease, unspecified; R56.9 Unspecified convulsions
CPT/HCPCS: 36415; 80053; 80164

== ENCOUNTER → 2019-08-01 15:47 | Outpatient (CLI) | payer OTHER, SELFPAY ==
[2019-08-01 14:26] VITALS: BMI 59.1
[2019-08-04 03:06] LABS: QNTFERON TB Mitogen Value > 10.00 IU/mL (.); QNTFERON TB Nil Value 0.04 IU/mL (.); QNTFERON TB1+ Ag Value 0.04 IU/mL (.); QNTFERON TB2+ Ag Value 0.03 IU/mL (.)
[2019-08-04 16:33] LABS: QNTIFERON TB Positive Criteria Negative (Negative)
== END ==
PROVIDERS: Family Provider Family Medicine; PCP Family Medicine; Referring Provider Dermatology Pediatric Dermatology; Visit Provider Dermatology Pediatric Dermatology
DX: L40.0 Psoriasis vulgaris (principal); L40.8 Other psoriasis; R60.0 Localized edema
CPT/HCPCS: 36415; 86480; 87070; 87205

== ENCOUNTER → 2019-08-25 16:38 | Outpatient (CLI) | payer OTHER, SELFPAY ==
[2019-08-01 14:26] VITALS: BMI 59.1
[2019-08-25 17:40] LABS: Absolute Lymphocyte Count 2.04 X10^3/uL (0.83-4.51); Absolute Neutrophil Count 2.8 X10^3/uL (2.0-7.7); Basophil# 0.04 X10^3/uL; Basophil% 0.7 % (0-1); Eosinophils% 6.7 % (0-5); Hematocrit 40.4 % (37-47); Lymphocyte # 2.04 X10^3/ul (4.0); Lymphocyte % 34.1 % (19-41); Mean Corp Hgb Conc 32.2 g/dL (32-36); Mean Corpuscular Hgb 30.3 pg (27.0-32.0); Mean Corpuscular Volume 94.2 fL (81-99); Mean Platelet Vol. 10.6 fl (6.2-12.0); Monocyte# 0.61 X10^3/uL; Monocyte% 10.2 % (0-10); NRBC Flagged by Analyzer 0 % (0-5); Neutrophil # 2.81 X10^3/uL (2.7-7.7); Platelet Count 232 K/mm3 (150-450); RBC Distribution Width CV 14.2 % (11.6-14.6); RBC Distribution Width SD 48.5 fl (35.1-43.9); Red Blood Count 4.29 M/mm3 (4.2-5.4)
[2019-08-25 18:18] LABS: AST(SGOT) 32 U/L (15-37); Alanine Aminotransfer ALT/SGPT 49 U/L (13-56); Albumin, Serum 3.4 g/dL (3.2-5.0); Alkaline Phosphatase 72 U/L (45-117); Anion Gap 5 (5-15); BUN 14 mg/dL (7-18); BUN/Creat Ratio 20.1 RATIO (10-20); Bilirubin, Direct 0.06 mg/dL (0.00-0.30); Calcium,Total 8.9 mg/dL (8.5-10.1); Chloride 104 mmol/L (98-107); EST Glomerular Filtration Rate 94 mL/min (>60); Est Glom Filt Rate - Afr Amer 113 mL/min (>60); Globulin 3.4 g/dL (2.2-4.2); Glucose 143 mg/dL (74-106); Potassium 4.2 mmol/L (3.5-5.1); Protein, Total 6.8 g/dL (6.4-8.2); Sodium Level 137 mmol/L (136-145)
[2019-08-28 10:29] LABS: Hepatitis B Surface Antibody Reactive; Hepatitis B Surface Antigen Non-Reactive (Nonreactive); Hepatitis C Antibody Non-Reactive (Nonreactive)
[2019-08-29 10:26] LABS: Hepatitis B Core Ab Total Negative (Negative)
== END ==
PROVIDERS: Family Provider Family Medicine; PCP Family Medicine; Referring Provider Nurse Practitioner Family; Visit Provider Nurse Practitioner Family
DX: L40.0 Psoriasis vulgaris (principal); L40.8 Other psoriasis; B37.2 Candidiasis of skin and nail; Z79.899 Other long term (current) drug therapy
CPT/HCPCS: 36415; 80048; 80076; 85025; 86704; 86706; 86803; 87340

== ENCOUNTER → 2019-08-30 11:56 | Outpatient (CLI) | payer OTHER, SELFPAY ==
[2019-08-29 16:52] VITALS: BMI 59.1
[2019-08-30 12:36] LABS: Absolute Lymphocyte Count 1.89 X10^3/uL (0.83-4.51); Absolute Neutrophil Count 2.5 X10^3/uL (2.0-7.7); Basophil# 0.04 X10^3/uL; Basophil% 0.8 % (0-1); Eosinophil# 0.39 X10^3/uL; Eosinophils% 7.3 % (0-5); Hematocrit 43.8 % (37-47); Lymphocyte # 1.89 X10^3/ul (4.0); Lymphocyte % 35.5 % (19-41); Mean Corpuscular Hgb 30.3 pg (27.0-32.0); Mean Corpuscular Volume 94.8 fL (81-99); Mean Platelet Vol. 10.5 fl (6.2-12.0); Monocyte# 0.43 X10^3/uL; Monocyte% 8.1 % (0-10); NRBC Flagged by Analyzer 0 % (0-5); Platelet Count 231 K/mm3 (150-450); RBC Distribution Width CV 14.1 % (11.6-14.6); RBC Distribution Width SD 49.1 fl (35.1-43.9); Red Blood Count 4.62 M/mm3 (4.2-5.4); White Blood Count 5.3 K/mm3 (4.4-11.0)
[2019-08-30 13:02] LABS: ALB/GLOB Ratio 1.1 RATIO (0.9-2.4); AST(SGOT) 39 U/L (15-37); Alanine Aminotransfer ALT/SGPT 54 U/L (13-56); Albumin, Serum 3.5 g/dL (3.2-5.0); Alkaline Phosphatase 71 U/L (45-117); Anion Gap 5 (5-15); BUN 14 mg/dL (7-18); Calcium,Total 8.8 mg/dL (8.5-10.1); Chloride 107 mmol/L (98-107); Creatinine, Serum 0.74 mg/dL (0.55-1.02); EST Glomerular Filtration Rate 88 mL/min (>60); Est Glom Filt Rate - Afr Amer 106 mL/min (>60); Globulin 3.2 g/dL (2.2-4.2); Glucose 162 mg/dL (74-106); Potassium 4.3 mmol/L (3.5-5.1); Protein, Total 6.7 g/dL (6.4-8.2); Sodium Level 139 mmol/L (136-145); Valproic Acid (Depakene) Level 66 ug/mL (50-100)
[2019-09-01 16:53] LABS: KEPPRA (LEVETIRACETAM) 4.6 ug/mL (10.0-40.0)
== END ==
PROVIDERS: Family Provider Family Medicine; PCP Family Medicine; Referring Provider Psychiatry & Neurology Neurology; Visit Provider Psychiatry & Neurology Neurology
DX: G43.119 Migraine with aura, intractable, without status migrainosus (principal); I67.9 Cerebrovascular disease, unspecified; R56.9 Unspecified convulsions; I10 Essential (primary) hypertension; R06.02 Shortness of breath; I25.10 Atherosclerotic heart disease of native coronary artery without angina pectoris
CPT/HCPCS: 36415; 80053; 80164; 80177; 85025

== ENCOUNTER → 2019-09-19 14:36 | Outpatient (CLI) | payer OTHER, SELFPAY ==
[2019-09-19 13:05] VITALS: BMI 63.4
--- NOTE | 2019-09-19 14:38 | RAD_ITS ---
STUDY: X-RAY CHEST REASON FOR EXAM: Female, 54 years old. INCREASING SHORTNESS OF BREATH, SOME CP, ? CHF TECHNIQUE: PA and lateral views of the chest. COMPARISON: 01/26/2019. FINDINGS: The lungs are clear and expanded. There is no demonstrated pleural abnormality. Normal size heart. Normal mediastinum and alicia. Normal visualized pulmonary arteries. Normal visualized aortic arch and descending thoracic aorta. Normal visualized thoracic spine. There is mild degenerative osteoarthritis of the bilateral shoulders. There is no demonstrated abnormality of the visualized soft tissue structures of the upper abdomen. RAD/Chest PA and Lateral IMPRESSION: Normal x-ray examination of the chest for age. Electronically Signed: Charlene Aceves MD at 3:30 EST , Service support ,
[2019-09-19 16:01] LABS: Absolute Lymphocyte Count 2.26 X10^3/uL (0.83-4.51); Absolute Neutrophil Count 3.2 X10^3/uL (2.0-7.7); Basophil# 0.06 X10^3/uL; Basophil% 0.9 % (0-1); Eosinophil# 0.58 X10^3/uL; Eosinophils% 8.6 % (0-5); Hemoglobin 13.7 g/dL (12.0-15.0); Lymphocyte # 2.26 X10^3/ul (4.0); Lymphocyte % 33.5 % (19-41); Mean Corp Hgb Conc 32.6 g/dL (32-36); Mean Corpuscular Hgb 30.9 pg (27.0-32.0); Mean Corpuscular Volume 94.6 fL (81-99); Mean Platelet Vol. 10.9 fl (6.2-12.0); Monocyte# 0.59 X10^3/uL; Monocyte% 8.7 % (0-10); NRBC Flagged by Analyzer 0 % (0-5); Neutrophil # 3.17 X10^3/uL (2.7-7.7); Platelet Count 283 K/mm3 (150-450); RBC Distribution Width CV 13.8 % (11.6-14.6); RBC Distribution Width SD 48.2 fl (35.1-43.9); Red Blood Count 4.44 M/mm3 (4.2-5.4); White Blood Count 6.8 K/mm3 (4.4-11.0)
[2019-09-19 16:39] LABS: Anion Gap 8 (5-15); BUN 18 mg/dL (7-18); BUN/Creat Ratio 21.2 RATIO (10-20); Calcium,Total 9.3 mg/dL (8.5-10.1); Chloride 102 mmol/L (98-107); Creatinine, Serum 0.85 mg/dL (0.55-1.02); EST Glomerular Filtration Rate 75 mL/min (>60); Est Glom Filt Rate - Afr Amer 90 mL/min (>60); Glucose 222 mg/dL (74-106); Potassium 4.1 mmol/L (3.5-5.1); Sodium Level 137 mmol/L (136-145)
== END ==
PROVIDERS: PCP Family Medicine; Referring Provider Nurse Practitioner Family; Visit Provider Nurse Practitioner Family
DX: R06.02 Shortness of breath (principal); I25.10 Atherosclerotic heart disease of native coronary artery without angina pectoris; R07.9 Chest pain, unspecified; I10 Essential (primary) hypertension; R06.09 Other forms of dyspnea
CPT/HCPCS: 36415; 71046; 80048; 83735; 83880; 85025

== ENCOUNTER → 2019-09-22 13:22 | Outpatient (CLI) | payer OTHER, SELFPAY ==
[2019-09-19 13:05] VITALS: BMI 63.4
[2019-09-22 14:58] LABS: Hemoglobin 12.9 g/dL (12.0-15.0); Mean Corp Hgb Conc 32.3 g/dL (32-36); Mean Corpuscular Hgb 30.6 pg (27.0-32.0); Platelet Count 231 K/mm3 (150-450); RBC Distribution Width SD 48.6 fl (35.1-43.9); Red Blood Count 4.21 M/mm3 (4.2-5.4)
[2019-09-22 15:22] LABS: Microalbumin,Random Urine 18.8 mg/L (NO RANGE EST.); Microalbumin:Creatinine Ratio 17.9 mg/g CRE (<30 mg/g CRE)
[2019-09-22 15:30] LABS: Albumin, Serum 3.3 g/dL (3.2-5.0); BUN 13 mg/dL (7-18); BUN/Creat Ratio 15.8 RATIO (10-20); Calcium,Total 8.6 mg/dL (8.5-10.1); Chloride 105 mmol/L (98-107); Creatinine, Serum 0.82 mg/dL (0.55-1.02); EST Glomerular Filtration Rate 78 mL/min (>60); Est Glom Filt Rate - Afr Amer 94 mL/min (>60); Glucose 270 mg/dL (74-106); Phosphorus 2.6 mg/dL (2.5-4.9); Potassium 4.5 mmol/L (3.5-5.1); Sodium Level 137 mmol/L (136-145)
[2019-09-22 15:33] LABS: PTHIN 89.9 pg/mL (18.4-80.1); Vitamin D,25 Hydroxy 24.3 ng/mL (29.95-100.01)
== END ==
PROVIDERS: Internal Medicine Nephrology; PCP Family Medicine; Referring Provider Nurse Practitioner Family; Visit Provider Nurse Practitioner Family
DX: I48.0 Paroxysmal atrial fibrillation (principal); R07.9 Chest pain, unspecified; N18.2 Chronic kidney disease, stage 2 (mild)
CPT/HCPCS: 36415; 80069; 82043; 82306; 82570; 83970; 85027; 93225; 93226

== ENCOUNTER 2019-09-27 13:27 | Emergency (ER) | payer OTHER, SELFPAY ==
[2019-09-19 13:05] VITALS: BMI 63.4
[2019-09-27 13:28] VITALS: BP 161/123; PULSE 97; RESP 16; TEMP 36.3; O2SAT 98; BMI 54.9
--- NOTE | 2019-09-27 13:52 | EKG12_ITS ---
Test Reason : EDEMA Blood Pressure : / mmHG Vent. Rate : 097 BPM Atrial Rate : 097 BPM P-R Int : 164 ms QRS Dur : 082 ms QT Int : 358 ms P-R-T Axes : 038 048 044 degrees QTc Int : 454 ms Normal sinus rhythm Low voltage QRS Borderline ECG Confirmed by KENISHA NOVOA, AMARJIT ([id number]), video editor ОЛЬГА DURHAM ([id number]) on 09/29/2019 8:03:01 AM Referred By: KATHIA Confirmed By:EVELINE DE MD
[2019-09-27] MEDS: Ondansetron 4 MG/2 ML Vial IV (14:21)
[2019-09-27 14:24] LABS: Bacteria 0 SEEN /hpf (None Seen); Mucous, Urine 0 SEEN /hpf (<or=2+); Red Blood Cells-Urine 0 SEEN /hpf (0-5)
[2019-09-27 14:26] LABS: Absolute Lymphocyte Count 1.61 X10^3/uL (0.83-4.51); Absolute Neutrophil Count 2.8 X10^3/uL (2.0-7.7); Basophil# 0.03 X10^3/uL; Basophil% 0.5 % (0-1); Eosinophil# 0.45 X10^3/uL; Eosinophils% 8.1 % (0-5); Hematocrit 40.4 % (37-47); Hemoglobin 13.3 g/dL (12.0-15.0); Lymphocyte # 1.61 X10^3/ul (4.0); Mean Corp Hgb Conc 32.9 g/dL (32-36); Mean Corpuscular Hgb 31.1 pg (27.0-32.0); Mean Corpuscular Volume 94.6 fL (81-99); Mean Platelet Vol. 10.7 fl (6.2-12.0); Monocyte# 0.65 X10^3/uL; Monocyte% 11.7 % (0-10); NRBC Flagged by Analyzer 0 % (0-5); Neutrophil # 2.78 X10^3/uL (2.7-7.7); Platelet Count 228 K/mm3 (150-450); RBC Distribution Width CV 13.8 % (11.6-14.6); RBC Distribution Width SD 47.5 fl (35.1-43.9); Red Blood Count 4.27 M/mm3 (4.2-5.4); White Blood Count 5.6 K/mm3 (4.4-11.0)
[2019-09-27 14:30] VITALS: BP 100/75; PULSE 95; PULSE 98; RESP 17; RESP 20; TEMP 36.3; O2SAT 94; O2SAT 96
[2019-09-27 14:30] LABS: Color, Urine Yellow (Yellow); Glucose, Dipstick 1000 mg/dl (Normal); Ketone-Dipstick 50 mg/dl (Negative); Leukocyte Esterase-Dipstick 25 /ul (Negative); Nitrite-Dipstick Negative (Negative); Occult Blood-Urine Negative /ul (Negative); Protein-Dipstick 15 mg/dl (Negative); Urine Bilirubin Dipstick Negative (Negative); Urine Clarity Sl. Cloudy (Clear); Urine Urobilinogen Normal (Normal)
[2019-09-27 14:40] LABS: Squamous Epithelial Cells - UA 0-5 SEEN /hpf (5-10); White Blood Cells 0-5 SEEN /hpf (0-5)
[2019-09-27 14:42] LABS: ALB/GLOB Ratio 0.9 RATIO (0.9-2.4); AST(SGOT) 18 U/L (15-37); Alanine Aminotransfer ALT/SGPT 43 U/L (13-56); Albumin, Serum 3.2 g/dL (3.2-5.0); Alkaline Phosphatase 73 U/L (45-117); Anion Gap 7 (5-15); BUN 19 mg/dL (7-18); BUN/Creat Ratio 21.6 RATIO (10-20); Calcium,Total 8.9 mg/dL (8.5-10.1); Chloride 105 mmol/L (98-107); Creatinine, Serum 0.88 mg/dL (0.55-1.02); EST Glomerular Filtration Rate 72 mL/min (>60); Est Glom Filt Rate - Afr Amer 87 mL/min (>60); Estimated Creatinine Clearance 67.29 ml/min; Globulin 3.4 g/dL (2.2-4.2); Glucose 246 mg/dL (74-106); Potassium 4.2 mmol/L (3.5-5.1); Protein, Total 6.6 g/dL (6.4-8.2); Sodium Level 139 mmol/L (136-145)
--- NOTE | 2019-09-27 14:52 | RAD_ITS ---
STUDY: X-RAY CHEST REASON FOR EXAM: Female, 54 years old. Edema, chest pain, cough, and sob for approx. 1 month TECHNIQUE: PA and lateral views of the chest. COMPARISON: Comparison is made with prior examination dated September 19, 2019. FINDINGS: EKG electrodes are seen. The lungs are clear and expanded. There is no demonstrated pleural abnormality. Normal size heart. Normal mediastinum and alicia. Normal visualized pulmonary arteries. Normal visualized aortic arch and descending thoracic aorta. Normal visualized thoracic spine. Normal visualized ribs, clavicles, and shoulders. There is no demonstrated abnormality of the visualized soft tissue structures of the upper abdomen. RAD/Chest PA and Lateral IMPRESSION: Normal x-ray examination of the chest. Electronically Signed: Solitario Johnston, at 15:10 EST , Service support ,
[2019-09-27 15:05] VITALS: BP 111/62; PULSE 92; RESP 18; TEMP 36.8; O2SAT 96
[2019-09-27 15:08] LABS: BNP,B-Type NATRIURETIC PEPTIDE 4.6 pg/mL (0-100)
--- NOTE | 2019-09-27 15:24 | ED.VISSUMM ---
- ER Visit Summary Date of Service: 09/27/19 Chief Complaint: Leg swelling History of Present Illness: The patient is a [address] Villagomez and Dr. Chun. She reports that she has bilateral leg swelling that began approximately a month ago. She states that she had her Lasix increased to 80 every morning and 40 every afternoon 3 weeks ago. She is also taking 25 mg of spironolactone a day. This is not helped. Patient reports she has chest pain that began 5 hours ago while she was at rest. Is a sharp, aching pain that is 10 on 10 worsening a 10 currently. She reports that she is short of breath and nauseated with this. She also complains of diaphoresis. Review of systems is positive. She complains of a sore throat, cough, abdominal pain, diarrhea, nausea, vomiting, dysuria, rash, headache, generalized weakness, and generalized numbness. Physical Examination: Vitals: Stable. Afebrile. General: Well-nourished and well-developed. Head: Normocephalic atraumatic. Neck: Supple, no lymphadenopathy. No JVD. Nontender. Cardiovascular: Regular rate and rhythm. No murmurs. Respiratory: No respiratory distress. Clear to auscultation bilaterally. Abdominal: Soft, nontender, nondistended, normal bowel sounds. No guarding, rebound, or peritoneal signs. Back: Nontender. Extremities: Nontender, 1+ pitting edema of her lower extremities bilaterally. Skin: Normal color, rash below both breasts consistent with Kay. There is no evidence of bacterial superinfection. Neurologic: Alert and oriented ?3. Cranial nerves II through XII are intact. Normal strength and sensation. Psych: Normal affect. Test Results: EKG is sinus at [address] changes. Troponin is negative. BT DIRECT MARKETING MANAGER is 4.6. UA is negative. LFTs are normal. Chem-7 shows a glucose of 246 and BUN of 19. CBC shows monocytes of 12 and eosinophils of 8. Chest x-ray is normal. Emergency Department Course and Treatment: Patient is resting comfortably. She has a has a pulse ox of 98% on room air. I reviewed her prior records. She had a heart catheterization October 18, 2018 that showed normal coronaries with ejection fraction of 65%. She had a 30-day event monitor in January that showed sinus rhythm and sinus tach with occasional PVCs. She also had an echogram in January of last year that showed moderate mitral regurg and ejection fraction of 57%. Treatment Plan: I suspect the patient has pulmonary hypertension as the explanation for her peripheral edema. She certainly has the body habitus for this. She reports that she was checked for sleep apnea. However, she does not know if this test was positive. She does not have a CPAP machine. She is discussed with Dr. Mcdowell who at this time does not want to change her diuretics. I have suggested the patient elevate her legs, wear her compression hose, and take her diuretics as previously prescribed. Follow-up Dr. Villagomez's previously scheduled. Follow-up with her primary care physician 1 week if not improving. Return to the emergency department for any worsening symptoms. Disposition: To home in improved and stable condition. Impression: 1. Atypical chest pain. 2. Bilateral peripheral edema. 3. Multiple somatic complaints. This note was generated with [employer] dictation software. It may contain incorrect words, spelling, and punctuation that were not noted in review of the chart prior to signing ED Disposition - Plan for ED Patient: Instructions: KAY SKIN INFECTION (Adult), ED Peripheral Edema, Bilateral Referrals: Sanjana Chun MD [Primary Care Provider] - 1 Week Jonny Villagomez MD [STAFF PHYSICIAN] - Keep Am[facility] appointment
[2019-09-27 15:53] VITALS: BP 122/67; PULSE 93; RESP 13; O2SAT 94
--- NOTE | 2019-09-27 15:54 | ED.RN ---
PT IS A+OX3, THIS RN REVIEWS D/C INSTRUCTIONS AND HOME GOING PAPERWORK WITH PT. PT VERBALIZES UNDERSTANDING. EDUCATED ON FOLLOW UP AND S/SX OF WHEN TO RETURN TO EMERGENCY DEPARTMENT. PT VERBALIZES UNDERSTANDING. DENIES ANY FURTHER QUESTIONS. PT IV D/C AND COVERED WITH 2X2 GAUZE AND PAPER TAPE. D/C FROM MONITOR.DRESSES SELF AND AMBULATES TO LOBBY TO WAIT FOR FAMILY TO PICK HER UP.
== END 2019-09-27 16:00 | disposition home or self-care (01) ==
PROVIDERS: Emergency Provider Emergency Medicine; PCP Family Medicine
DX: R07.89 Other chest pain (principal); R60.0 Localized edema; R06.00 Dyspnea, unspecified; R61 Generalized hyperhidrosis; J02.9 Acute pharyngitis, unspecified; R05 Cough; R10.9 Unspecified abdominal pain; R11.2 Nausea with vomiting, unspecified; R19.7 Diarrhea, unspecified; R53.1 Weakness; R20.0 Anesthesia of skin; R30.0 Dysuria; R21 Rash and other nonspecific skin eruption; R68.83 Chills (without fever); M54.9 Dorsalgia, unspecified; J44.9 Chronic obstructive pulmonary disease, unspecified; E11.9 Type 2 diabetes mellitus without complications; I10 Essential (primary) hypertension; E78.00 Pure hypercholesterolemia, unspecified; F32.9 Major depressive disorder, single episode, unspecified; E03.9 Hypothyroidism, unspecified; Z79.82 Long term (current) use of aspirin; Z79.4 Long term (current) use of insulin; Z79.84 Long term (current) use of oral hypoglycemic drugs; Z79.899 Other long term (current) drug therapy
CPT/HCPCS: 71046; 80053; 81001; 83880; 84484; 85025; 93005; 96374; 99284; A4216; J2405

== ENCOUNTER → 2019-10-16 14:08 | Outpatient (CLI) | payer OTHER, SELFPAY ==
[2019-09-27 13:28] VITALS: BMI 54.9
[2019-10-16 15:58] LABS: Anion Gap 6 (5-15); BUN 21 mg/dL (7-18); BUN/Creat Ratio 27.2 RATIO (10-20); Calcium,Total 9.5 mg/dL (8.5-10.1); Chloride 104 mmol/L (98-107); Creatinine, Serum 0.77 mg/dL (0.55-1.02); EST Glomerular Filtration Rate 83 mL/min (>60); Est Glom Filt Rate - Afr Amer 101 mL/min (>60); Glucose 186 mg/dL (74-106); Potassium 4.1 mmol/L (3.5-5.1); Sodium Level 139 mmol/L (136-145)
== END ==
PROVIDERS: PCP Family Medicine; Referring Provider Internal Medicine; Visit Provider Internal Medicine
DX: N18.2 Chronic kidney disease, stage 2 (mild) (principal)
CPT/HCPCS: 36415; 80048

== ENCOUNTER → 2019-10-18 11:00 | Outpatient (CLI) | payer OTHER, SELFPAY ==
[2019-09-27 13:28] VITALS: BMI 54.9
[2019-10-18] MEDS: Furosemide 40 MG/4 ML Vial 80 MG IV (11:20)
[2019-10-18 11:22] VITALS: BP 131/79; PULSE 101; RESP 16; TEMP 36.2; O2SAT 96; BMI 53.2
== END ==
PROVIDERS: PCP Family Medicine; Referring Provider Nurse Practitioner Family; Visit Provider Nurse Practitioner Family
DX: R60.0 Localized edema (principal)
CPT/HCPCS: 96374; J7050; J1940

== ENCOUNTER → 2019-10-31 13:32 | Outpatient (CLI) | payer OTHER, SELFPAY ==
[2019-10-23 12:52] VITALS: BMI 55.2
[2019-10-31 13:40] VITALS: BP 134/77; PULSE 98; RESP 18; TEMP 35.7; O2SAT 95; BMI 53.2
[2019-10-31] MEDS: 0.9% Saline Lock 10 ML Syringe IV ×2 (13:48→14:04)
[2019-10-31] MEDS: Furosemide 40 MG/4 ML Vial 80 MG IV (13:49)
[2019-10-31 14:04] VITALS: BP 137/73; PULSE 95; RESP 18
== END ==
PROVIDERS: PCP Family Medicine; Referring Provider Nurse Practitioner Family; Visit Provider Nurse Practitioner Family
DX: R60.0 Localized edema (principal)
CPT/HCPCS: 96374; A4216; J1940

== ENCOUNTER → 2019-11-01 11:35 | Outpatient (CLI) | payer OTHER, SELFPAY ==
[2019-10-31 13:40] VITALS: BMI 53.2
--- NOTE | 2019-11-01 11:39 | US_ITS ---
STUDY: ABDOMINAL ULTRASOUND - RIGHT UPPER QUADRANT REASON FOR VISIT: Female, 54 years old FATTY LIVER TECHNIQUE: Ultrasound evaluation of the right upper quadrant was performed with real-time and static magallon-scale imaging. TECHNICAL QUALITY: Adequate. COMPARISON: None. FINDINGS: Liver: The liver is enlarged and measures 22.2 cm. There is increased echogenicity consistent with fatty infiltration. The bile ducts are within normal limits. There is hepatic color flow. The direction of portal flow is hepatopetal. There is no demonstrated mass lesion. Gallbladder: Normal distended gallbladder. The gallbladder wall measures 2.6 mm. There is a negative sonographic Bhatt''s sign. There is no pericholecystic fluid. There are no gallstones. Common Bile Duct (C.B.D.): The common bile duct measures 5.2 mm. Pancreas: Normal size of the head, body and tail of the pancreas. There is increased echogenicity of the pancreas. There is no demonstrated pancreatic mass or cyst. Right Kidney: Normal size of the right kidney. The right kidney measures 12.3 cm x 5.4 cm x 5.8 cm. Normal renal cortex. The right cortex measures 1.7 cm. There is a 1.5 cm x 1.4 cm x 1.7 cm cyst. There is no right hydronephrosis. US/Liver IMPRESSION: Hepatomegaly and fatty infiltration of the liver. Right renal cyst. Electronically Signed: Solitario Johnston, at 13:59 EDT , Service support ,
[2019-11-01 14:10] VITALS: BP 126/77; PULSE 96; RESP 16; TEMP 36.3; O2SAT 99; BMI 53.2
[2019-11-01] MEDS: Furosemide 40 MG/4 ML Vial 80 MG IV (14:11)
[2019-11-01 14:32] LABS: Anion Gap 8 (5-15); BUN 19 mg/dL (7-18); BUN/Creat Ratio 22.5 RATIO (10-20); Calcium,Total 8.6 mg/dL (8.5-10.1); Chloride 103 mmol/L (98-107); Creatinine, Serum 0.84 mg/dL (0.55-1.02); EST Glomerular Filtration Rate 75 mL/min (>60); Est Glom Filt Rate - Afr Amer 91 mL/min (>60); Glucose 215 mg/dL (74-106); Potassium 4.3 mmol/L (3.5-5.1); Sodium Level 140 mmol/L (136-145)
[2019-11-01] MEDS: 0.9% NaCl Peripheral Flush Adult/Peds IV ×3 (14:35→14:41)
== END ==
LOC: US 11:36 → MEDOUTP 13:32
PROVIDERS: Nurse Practitioner Family; PCP Family Medicine; Referring Provider Internal Medicine Nephrology; Visit Provider Internal Medicine Nephrology
DX: R60.0 Localized edema (principal); K76.0 Fatty (change of) liver, not elsewhere classified; I25.10 Atherosclerotic heart disease of native coronary artery without angina pectoris; I10 Essential (primary) hypertension; E78.5 Hyperlipidemia, unspecified
CPT/HCPCS: 96374; 76705; 80048; A4216; J1940

== ENCOUNTER → 2019-11-02 13:34 | Outpatient (CLI) | payer OTHER, SELFPAY ==
[2019-10-23 12:52] VITALS: BMI 55.2
[2019-11-01 14:10] VITALS: BMI 53.2
[2019-11-02 13:48] VITALS: BP 138/83; PULSE 97; RESP 16; TEMP 36.6; BMI 53.2
[2019-11-02] MEDS: Furosemide 40 MG/4 ML Vial 80 MG IV (13:54)
[2019-11-02 14:11] VITALS: BP 138/81
== END ==
PROVIDERS: PCP Family Medicine; Referring Provider Nurse Practitioner Family; Visit Provider Nurse Practitioner Family
DX: R60.0 Localized edema (principal)
CPT/HCPCS: 96374; A4216; J1940

== ENCOUNTER → 2020-02-01 15:51 | Outpatient (CLI) | payer OTHER, SELFPAY ==
[2020-01-02 10:48] VITALS: BMI 53.2
[2020-02-01 17:11] LABS: Absolute Lymphocyte Count 1.91 X10^3/uL (0.83-4.51); Absolute Neutrophil Count 2.8 X10^3/uL (2.0-7.7); Basophil# 0.04 X10^3/uL; Basophil% 0.7 % (0-1); Eosinophil# 0.42 X10^3/uL; Eosinophils% 7.3 % (0-5); Hematocrit 41.5 % (37-47); Hemoglobin 13.3 g/dL (12.0-15.0); Lymphocyte # 1.91 X10^3/ul (4.0); Mean Corpuscular Volume 96.7 fL (81-99); Mean Platelet Vol. 10.7 fl (6.2-12.0); Monocyte% 10.4 % (0-10); NRBC Flagged by Analyzer 0 % (0-5); Neutrophil # 2.75 X10^3/uL (2.7-7.7); Neutrophil % 47.4 % (47-70); Platelet Count 269 K/mm3 (150-450); RBC Distribution Width CV 14.1 % (11.6-14.6); RBC Distribution Width SD 49.8 fl (35.1-43.9); Red Blood Count 4.29 M/mm3 (4.2-5.4); White Blood Count 5.8 K/mm3 (4.4-11.0)
[2020-02-01 18:33] LABS: Anion Gap 12 (5-15); BUN 14 mg/dL (7-18); Calcium,Total 9.2 mg/dL (8.5-10.1); Chloride 101 mmol/L (98-107); Creatinine, Serum 0.78 mg/dL (0.55-1.02); EST Glomerular Filtration Rate 82 mL/min (>60); Est Glom Filt Rate - Afr Amer 100 mL/min (>60); Glucose 183 mg/dL (74-106); Potassium 4.1 mmol/L (3.5-5.1); Sodium Level 138 mmol/L (136-145)
== END ==
LOC: LABSPEC 15:53 → LAB 15:57
PROVIDERS: PCP Family Medicine; Referring Provider Nurse Practitioner Family; Visit Provider Nurse Practitioner Family
DX: I10 Essential (primary) hypertension (principal); R06.02 Shortness of breath; R60.0 Localized edema
CPT/HCPCS: 36415; 80048; 83880; 85025

== ENCOUNTER → 2020-02-20 14:12 | Outpatient (CLI) | payer OTHER, SELFPAY ==
[2020-01-02 10:48] VITALS: BMI 53.2
--- NOTE | 2020-02-20 14:13 | ECHOCS_ITS ---
Reason For Study: Dyspnea/SOB Procedure This was a 2D Doppler, Color Flow transthoracic echocardiogram. The study was technically difficult. Contrast injection was performed. Exam performed in department. Left Ventricle Normal LV size. Left ventricular systolic function is normal. The estimated ejection fraction is 65 %. Transmitral doppler flow suggestive of impaired relaxation of left ventricle. No regional wall motion abnormalities noted. Right Ventricle Normal RV size. Normal systolic function. Atria Normal left atrium. Normal right atrium. No doppler evidence for ASD. Mitral Valve There is no mitral annular calcification. Normal mitral valve. Trivial mitral valve insufficiency. Tricuspid Valve Normal tricuspid valve. Trivial tricuspid valve insufficiency. Unable to estimate RV systolic pressure/pulmonary artery pressure due to technically difficult study. Aortic Valve Trisinus/trileaflet aortic valve. Normal aortic valve. Pulmonic Valve The pulmonic valve is not well visualized. Great Vessels The aortic root is not well visualized. Pericardium/Pleural No pericardial effusion. Medication 22 gauge I.V. with prn adaptor inserted into left arm. Diluted definity 3ml given slow IV push to enhance endocardial definition. MMode/2D Measurements & Calculations LVIDd: 4.2 cm IVSd: 1.1 cm LA dimension: 3.8 cm LVIDs: 3.0 cm LVPWd: 0.91 cm FS: 29.6 % LAV(MOD-bp): 43.1 ml LA A4 area: 15.1 cm2 RA A4 area: 10.2 cm2 LAV(MOD-bp) Indexed: 17.3 ml/m2 LAV(MOD-sp2): 55.5 ml LAV(MOD-sp4): 33.7 ml Time Measurements MV dec time: 0.21 sec Doppler Measurements & Calculations MV E max andrea: 70.2 cm/sec Lat Peak E' Andrea: 12.9 cm/sec Med Peak E' Andrea: 9.6 cm/sec MV A max andrea: 104.9 cm/sec E/E' lat: 5.4 E/E' med: 7.4 MV E/A: 0.67 MV V2 max: 115.9 cm/sec MV P1/2t max andrea: 83.0 cm/sec Ao V2 max: 184.9 cm/sec MV max P.4 mmHg MV P1/2t: 74.2 msec Ao max P.7 mmHg MV V2 mean: 62.8 cm/sec MV dec slope: 327.9 cm/sec2 MV mean P.9 mmHg MV V2 VTI: 20.9 cm MVA(P1/2t): 3.0 cm2 LV V1 max: 150.2 cm/sec PA V2 max: 105.9 cm/sec LV V1 max P.0 mmHg Interpretation Summary The study was technically difficult. Contrast injection was performed. Left ventricular systolic function is normal. The estimated ejection fraction is 65 %. Trivial mitral valve insufficiency. Trivial tricuspid valve insufficiency. Unable to estimate RV systolic pressure/pulmonary artery pressure due to technically difficult study. Transmitral doppler flow suggestive of impaired relaxation of left ventricle Ordering Physician: Jose Palomo Referring Physician: Jose Palomo Performed By: Tej Michelle RCS
== END ==
PROVIDERS: PCP Family Medicine; Referring Provider Nurse Practitioner Family; Visit Provider Nurse Practitioner Family
DX: R60.0 Localized edema (principal); R06.02 Shortness of breath; I10 Essential (primary) hypertension
CPT/HCPCS: 93306; Q9957; A4216; C8929

== ENCOUNTER → 2020-06-17 12:37 | Outpatient (CLI) | payer OTHER, SELFPAY ==
[2020-01-02 10:48] VITALS: BMI 53.2
[2020-06-17 13:29] LABS: Protein, Urine (Random) < 6.0 mg/dL (<11.9); Protein:Creat Ratio 121 mg/g CRE (0-200)
[2020-06-17 13:51] LABS: Anion Gap 11 (5-15); BUN 20 mg/dL (7-18); BUN/Creat Ratio 22.7 RATIO (10-20); Calcium,Total 9.1 mg/dL (8.5-10.1); Chloride 97 mmol/L (98-107); Creatinine, Serum 0.88 mg/dL (0.55-1.02); EST Glomerular Filtration Rate 71 mL/min (>60); Est Glom Filt Rate - Afr Amer 86 mL/min (>60); Glucose 273 mg/dL (74-106); Potassium 4.1 mmol/L (3.5-5.1); Sodium Level 135 mmol/L (136-145)
== END ==
PROVIDERS: PCP Family Medicine; Referring Provider Internal Medicine Nephrology; Visit Provider Internal Medicine Nephrology
DX: N18.2 Chronic kidney disease, stage 2 (mild) (principal)
CPT/HCPCS: 36415; 80048; 82570; 84156

== ENCOUNTER 2020-08-01 14:04 | Outpatient (RCR) | payer OTHER, SELFPAY ==
[2020-07-15 14:48] VITALS: BMI 58.6
[2020-07-23 14:18] VITALS: BMI 58.6
[2020-08-01 14:39] VITALS: BP 145/88; PULSE 113; TEMP 36.8; BMI 58.6
== END 2020-08-01 15:10 | disposition home or self-care (01) ==
LOC: WC 14:04
PROVIDERS: PCP Family Medicine; Referring Provider Internal Medicine Cardiovascular Disease; Visit Provider Nurse Practitioner Family
DX: Z09 Encounter for follow-up examination after completed treatment for conditions other than malignant neoplasm (principal)

== ENCOUNTER → 2020-11-13 11:11 | Outpatient (CLI) | payer OTHER, SELFPAY ==
[2020-08-06 14:52] VITALS: BMI 53.2
== END ==
PROVIDERS: PCP Family Medicine; Referring Provider Physician Assistant Medical; Visit Provider Physician Assistant Medical
DX: R00.0 Tachycardia, unspecified (principal); R07.9 Chest pain, unspecified
CPT/HCPCS: 93225; 93226

== ENCOUNTER → 2021-01-09 16:13 | Outpatient (CLI) | payer OTHER, SELFPAY ==
[2020-12-19 14:46] VITALS: BMI 53.2
[2021-01-09 16:59] LABS: Absolute Lymphocyte Count 2.34 X10^3/uL (0.83-4.51); Absolute Neutrophil Count 3.3 X10^3/uL (2.0-7.7); Basophil# 0.06 X10^3/uL; Basophil% 0.8 % (0-1); Eosinophil# 0.67 X10^3/uL; Eosinophils% 9.4 % (0-5); Hematocrit 41.3 % (37-47); Hemoglobin 13.2 g/dL (12.0-15.0); Lymphocyte # 2.34 X10^3/ul (0.83-4.51); Mean Corpuscular Hgb 29.8 pg (27.0-32.0); Mean Corpuscular Volume 93.2 fL (81-99); Mean Platelet Vol. 10.8 fl (6.2-12.0); Monocyte# 0.61 X10^3/uL; Monocyte% 8.6 % (0-10); NRBC Flagged by Analyzer 0 % (0-5); Neutrophil # 3.34 X10^3/uL (2.7-7.7); Neutrophil % 47.2 % (47-70); Platelet Count 284 K/mm3 (150-450); RBC Distribution Width CV 13.3 % (11.6-14.6); RBC Distribution Width SD 45.6 fl (35.1-43.9); Red Blood Count 4.43 M/mm3 (4.2-5.4); White Blood Count 7.1 K/mm3 (4.4-11.0)
[2021-01-09 17:41] LABS: ALB/GLOB Ratio 0.9 RATIO (0.9-2.4); AST(SGOT) 45 U/L (15-37); Alanine Aminotransfer ALT/SGPT 71 U/L (13-56); Albumin, Serum 3.6 g/dL (3.2-5.0); Alkaline Phosphatase 88 U/L (45-117); Anion Gap 4 (5-15); BUN 13 mg/dL (7-18); BUN/Creat Ratio 18.6 RATIO (10-20); Calcium,Total 9.3 mg/dL (8.5-10.1); Chloride 104 mmol/L (98-107); Cholesterol 280 mg/dL (200); EST Glomerular Filtration Rate 93 mL/min (>60); Est Glom Filt Rate - Afr Amer 113 mL/min (>60); Glucose 117 mg/dL (74-106); High Density Lipoprotein 31 mg/dL; Potassium 4.2 mmol/L (3.5-5.1); Protein, Total 7.6 g/dL (6.4-8.2); Sodium Level 139 mmol/L (136-145); Thyroid Stim Hormone (TSH) 2.73 uIU/mL (0.358-3.74); Triglycerides 439 mg/dL
== END ==
PROVIDERS: Nurse Practitioner Family; PCP Family Medicine; Visit Provider Family Medicine
DX: E78.2 Mixed hyperlipidemia (principal); F41.9 Anxiety disorder, unspecified; K59.09 Other constipation; I10 Essential (primary) hypertension; Z12.11 Encounter for screening for malignant neoplasm of colon
CPT/HCPCS: 36415; 80053; 80061; 82274; 84443; 85025

== ENCOUNTER → 2021-02-06 16:01 | Outpatient (CLI) | payer OTHER, SELFPAY ==
[2021-01-10 15:15] VITALS: BMI 61.6
[2021-02-06 17:26] LABS: Absolute Lymphocyte Count 2.01 X10^3/uL (0.83-4.51); Absolute Neutrophil Count 3.4 X10^3/uL (2.0-7.7); Basophil# 0.05 X10^3/uL; Basophil% 0.7 % (0-1); Eosinophil# 0.51 X10^3/uL; Eosinophils% 7.6 % (0-5); Hematocrit 37.2 % (37-47); Lymphocyte # 2.01 X10^3/ul (0.83-4.51); Lymphocyte % 30.1 % (19-41); Mean Corp Hgb Conc 32.3 g/dL (32-36); Mean Corpuscular Hgb 30.2 pg (27.0-32.0); Mean Corpuscular Volume 93.5 fL (81-99); Mean Platelet Vol. 11.1 fl (6.2-12.0); Monocyte# 0.61 X10^3/uL; Monocyte% 9.1 % (0-10); NRBC Flagged by Analyzer 0 % (0-5); Neutrophil # 3.43 X10^3/uL (2.7-7.7); Neutrophil % 51.6 % (47-70); Platelet Count 270 K/mm3 (150-450); RBC Distribution Width CV 13.9 % (11.6-14.6); RBC Distribution Width SD 47.8 fl (35.1-43.9); Red Blood Count 3.98 M/mm3 (4.2-5.4); White Blood Count 6.7 K/mm3 (4.4-11.0)
[2021-02-06 17:42] LABS: BNP,B-Type NATRIURETIC PEPTIDE 19.9 pg/mL (0-100)
[2021-02-06 18:02] LABS: AST(SGOT) 34 U/L (15-37); Alanine Aminotransfer ALT/SGPT 60 U/L (13-56); Albumin, Serum 3.4 g/dL (3.2-5.0); Alkaline Phosphatase 82 U/L (45-117); Anion Gap 10 (5-15); BUN 16 mg/dL (7-18); BUN/Creat Ratio 20.5 RATIO (10-20); Calcium,Total 8.8 mg/dL (8.5-10.1); Chloride 105 mmol/L (98-107); Creatinine, Serum 0.78 mg/dL (0.55-1.02); EST Glomerular Filtration Rate 82 mL/min (>60); Est Glom Filt Rate - Afr Amer 99 mL/min (>60); Globulin 3.5 g/dL (2.2-4.2); Glucose 190 mg/dL (74-106); Potassium 4.3 mmol/L (3.5-5.1); Protein, Total 6.9 g/dL (6.4-8.2); Sodium Level 140 mmol/L (136-145)
[2021-02-09 07:06] LABS: QNTFERON TB Mitogen Value > 10.00 IU/mL (.); QNTFERON TB Nil Value 0 IU/mL (.); QNTFERON TB1+ Ag Value 0 IU/mL (.); QNTFERON TB2+ Ag Value 0 IU/mL (.)
[2021-02-09 08:39] LABS: QNTIFERON TB Positive Criteria Negative (Negative)
== END ==
PROVIDERS: PCP Family Medicine; Referring Provider Nurse Practitioner Family; Visit Provider Nurse Practitioner Family
DX: L40.0 Psoriasis vulgaris (principal); Z79.899 Other long term (current) drug therapy; L40.8 Other psoriasis; I89.0 Lymphedema, not elsewhere classified; R06.02 Shortness of breath
CPT/HCPCS: 36415; 80053; 83880; 85025; 86480

== ENCOUNTER → 2021-04-09 16:42 | Outpatient (CLI) | payer OTHER, SELFPAY ==
[2021-04-09 17:43] LABS: AST(SGOT) 28 U/L (15-37); Alanine Aminotransfer ALT/SGPT 60 U/L (13-56); Albumin, Serum 3.6 g/dL (3.2-5.0); Alkaline Phosphatase 71 U/L (45-117); Anion Gap 6 (5-15); BUN 17 mg/dL (7-18); BUN/Creat Ratio 19.1 RATIO (10-20); Calcium,Total 9.2 mg/dL (8.5-10.1); Chloride 103 mmol/L (98-107); Creatinine, Serum 0.89 mg/dL (0.55-1.02); EST Glomerular Filtration Rate 70 mL/min (>60); Est Glom Filt Rate - Afr Amer 85 mL/min (>60); Globulin 3.6 g/dL (2.2-4.2); Glucose 163 mg/dL (74-106); Magnesium 2.1 mg/dL (1.6-2.6); Potassium 3.8 mmol/L (3.5-5.1); Protein, Total 7.2 g/dL (6.4-8.2); Sodium Level 138 mmol/L (136-145)
== END ==
PROVIDERS: PCP Family Medicine; Referring Provider Nurse Practitioner Family; Visit Provider Nurse Practitioner Family
DX: I49.3 Ventricular premature depolarization (principal); Z79.899 Other long term (current) drug therapy
CPT/HCPCS: 36415; 80053; 83735

== ENCOUNTER → 2021-05-26 13:12 | Outpatient (CLI) | payer OTHER, SELFPAY ==
[2021-03-26 08:00] VITALS: BMI 62.1
--- NOTE | 2021-05-26 14:54 | PFTCOMP ---
COMPLETE PULMONARY FUNCTION TEST INTERPRETATION Brief HPI: Patient is a 56 year old female, currently under the care of Dr. Landa, who presents to [facility] for complete pulmonary function tests secondary to diagnosis of dyspnea. Respiratory therapist reports good effort and reproducible results. Interpretation: Forced expiration spirometry shows no large airways obstructive ventilatory defect with an FEV1 of 80% predicted. There is no significant bronchodilator response by strict ATS criteria in FVC or FEV1. Spirograms are of good quality and plateau slowly, indicating slowly emptying areas of the lungs. The respiratory flow volume loop shows decreased expiratory flow rates at high lung volumes consistent with small airways obstruction. Lung volumes by body plethysmography show a normal total lung capacity at 5.07 L, 95% predicted. All other lung volumes are within normal limits. Diffusion capacity by carbon monoxide is at the lower limit of normal at 75% predicted. The airway resistance is normal. Compared to previous pulmonary function tests from 05/06/2017, there has been no significant change. Impression: Grossly normal pulmonary function testing with some stigmata of small airways disease and no significant change compared to 2017.
== END ==
PROVIDERS: PCP Family Medicine; Referring Provider Nurse Practitioner Acute Care; Visit Provider Nurse Practitioner Acute Care
DX: R06.02 Shortness of breath (principal)
CPT/HCPCS: 94060; 94726; 94729

== ENCOUNTER → 2021-07-02 13:25 | Outpatient (CLI) | payer OTHER, SELFPAY ==
[2021-07-03 08:58] LABS: Hepatitis B Surface Antibody Reactive
[2021-07-07 17:07] LABS: HEPATITIS B SURFACE AG Negative (Negative); Hepatitis A IgM Antibody Negative (Negative); Hepatitis B Core AB IgM Negative (Negative); QNTFERON TB Mitogen Value > 10.00 IU/mL (.); QNTFERON TB Nil Value 0.02 IU/mL (.); QNTFERON TB1+ Ag Value 0 IU/mL (.); QNTFERON TB2+ Ag Value 0.04 IU/mL (.)
[2021-07-08 07:42] LABS: Hep C Antibodies <0.1 s/co ratio (0.0-0.9); Hepatitis A AB, Total Negative (Negative); QNTIFERON TB Positive Criteria Negative (Negative)
== END ==
PROVIDERS: PCP Family Medicine; Referring Provider Dermatology Pediatric Dermatology; Visit Provider Dermatology Pediatric Dermatology
DX: L40.0 Psoriasis vulgaris (principal); Z79.899 Other long term (current) drug therapy; T14.8XXA Other injury of unspecified body region, initial encounter
CPT/HCPCS: 36415; 80074; 86480; 86706; 86708

== ENCOUNTER → 2021-07-16 16:32 | Outpatient (CLI) | payer OTHER, SELFPAY ==
--- NOTE | 2021-07-16 16:59 | RAD_ITS ---
HISTORY: SOB, Cough, weakness. EXAMINATION/TECHNIQUE: XR Chest 2 Views: COMPARISON: 09/27/2019 FINDINGS: LINES/DEVICES: None. LUNGS: No airspace consolidation. Unremarkable interstitium. No effusion. No pneumothorax. MEDIASTINUM: No cardiomegaly. MUSCULOSKELETAL: No acute osseous finding. RAD/Chest PA and Lateral IMPRESSION: No evidence of acute cardiopulmonary process. at 0626 Reported and signed by: Corey Keller MD Electronically Signed: Corey Keller MD at 6:24 EST Tel , Service support ,
[2021-07-16 17:21] LABS: Anion Gap 10 (5-15); BNP,B-Type NATRIURETIC PEPTIDE 7.8 pg/mL (0-100); BUN 20 mg/dL (7-18); BUN/Creat Ratio 22.8 RATIO (10-20); Calcium,Total 9.5 mg/dL (8.5-10.1); Chloride 100 mmol/L (98-107); Creatinine, Serum 0.88 mg/dL (0.55-1.02); EST Glomerular Filtration Rate 71 mL/min (>60); Est Glom Filt Rate - Afr Amer 86 mL/min (>60); Glucose 137 mg/dL (74-106); Potassium 4.1 mmol/L (3.5-5.1); Sodium Level 138 mmol/L (136-145)
== END ==
PROVIDERS: PCP Family Medicine; Visit Provider Nurse Practitioner Family
DX: R06.02 Shortness of breath (principal)
CPT/HCPCS: 36415; 71046; 80048; 83880

== ENCOUNTER 2021-11-06 13:03 | Outpatient (CLI) | payer OTHER, SELFPAY ==
--- NOTE | 2021-11-06 13:08 | CDU_ITS ---
Reason For Study: TIA Rt. Velocities/BP Lt. Velocities/BP Prox CCA 79.9/14.7 cm/sec. Prox CCA 76.1/16.8 cm/sec. Mid CCA 63/10.8 cm/sec. Mid CCA 82.7/16.8 cm/sec. Dist CCA 48.6/9.5 cm/sec. Dist CCA 76.2/22.3 cm/sec. Prox ICA 64.1/20.1 cm/sec. Prox ICA 47.6/17.9 cm/sec. Mid ICA 59.7/15.7 cm/sec. Mid ICA 63/20.1 cm/sec. Dist ICA 52/17.9 cm/sec. Dist ICA 57.5/16.8 cm/sec. Rt. ICA/CCA = 1.01. Lt. ICA/CCA = 0.83. Prox ECA 93.7/7.9 cm/sec. Prox ECA 79.5/6.9 cm/sec. Rt. Vert. 45.4/12.4 cm/sec. Lt. Vert. 42.1/13.5 cm/sec. Right Extracranial There is intimal thickening but no significant atherosclerotic plaque noted in the right common carotid artery. There is intimal thickening but no significant atherosclerotic plaque noted in the right internal carotid artery. There is no significant atherosclerotic plaque noted in the right external carotid artery. Antegrade flow is noted in the right vertebral artery. Left Extracranial There is homogeneous, smooth atherosclerotic plaque noted in the left common carotid artery. There is intimal thickening but no significant atherosclerotic plaque noted in the left internal carotid artery. There is no significant atherosclerotic plaque noted in the left external carotid artery. Antegrade flow is noted in the left vertebral artery. Procedure This is a Carotid Duplex examination using B-mode, color flow and specral Doppler. Carotid Duplex [id number]. Exam performed in department. VL/Carotid Duplex Ultrasound Interpretation Summary No hemodynamically significant plaque or stenosis bilateral internal carotid ar teries with less than 50% stenosis Less than 50% stenosis of bilateral external carotid arteries Patent and antegrade vertebral arteries bilaterally Ordering Physician: Jonny Villagomez Referring Physician: Sanjana Chun Performed By: Neeta Molina RVT
== END 2021-11-06 23:59 | disposition home or self-care (01) ==
LOC: CVS 13:05
PROVIDERS: PCP Family Medicine; Referring Provider Internal Medicine Cardiovascular Disease; Visit Provider Internal Medicine Cardiovascular Disease
DX: Z86.73 Personal history of transient ischemic attack (TIA), and cerebral infarction without residual deficits (principal)
CPT/HCPCS: 93880

== ENCOUNTER → 2022-01-19 | Outpatient (CLI) | payer OTHER, SELFPAY ==
[2022-01-19 18:48] LABS: Thyroid Stim Hormone (TSH) 1.11 uIU/mL (0.358-3.74)
== END | disposition home or self-care (01) ==
LOC: LAB 16:31
PROVIDERS: PCP Family Medicine; Visit Provider Nurse Practitioner Adult Health
DX: E03.9 Hypothyroidism, unspecified (principal)
CPT/HCPCS: 36415; 84439; 84443

== ENCOUNTER 2022-10-12 18:11 | Emergency (ER) | payer OTHER, SELFPAY ==
[2022-10-12 18:31] VITALS: BP 125/73; PULSE 87; RESP 18; TEMP 36.6; O2SAT 96
--- NOTE | 2022-10-12 20:02 | EKG12_ITS ---
Test Reason : REPEAT CP Blood Pressure : / mmHG Vent. Rate : 091 BPM Atrial Rate : 091 BPM P-R Int : 180 ms QRS Dur : 090 ms QT Int : 380 ms P-R-T Axes : 052 062 048 degrees QTc Int : 467 ms Sinus rhythm with occasional Premature ventricular complexes Low voltage QRS Borderline ECG Confirmed by JAN NOVOA, DEIDRA ([id number]), film or videotape editor MANDO CORNEJO ([id number]) on 10/14/2022 10:29:20 AM Referred By: PL Confirmed By:DEIDRA MONTOYA MD
--- NOTE | 2022-10-12 20:03 | ED.VIS.CHEST ---
HPI History of Present Illness Chief Complaint: Chest Pain Informant: patient Narrative Narrative: Brought in by EMS for left-sided after awakening 4 hours ago. Denies recent cough. Denies history of VT or coronary disease. History of paroxysmal A-fib on Eliquis. History of hypertension, hyperlipidemia, diabetes. Patient reports cardiomyopathy on Entresto. She is followed by Dr. Villagomez. Heart cath back in 2019. No history of VT. Report nausea. States EMS did not give her any medications. [facility] Medical History Abnormal nuclear stress test Afib Albuminuria Allergic rhinitis Anemia Arthritis Asthma Atherosclerotic heart disease of [place] coronary artery without angina pectoris Cerebral atherosclerosis Chest pain Chronic migraine Chronic respiratory failure with hypoxia COPD (chronic obstructive pulmonary disease) Cystic fibrosis Depression Diabetes mellitus type 2, controlled Diastolic dysfunction SUH (dyspnea on exertion) Eczema Endometriosis Essential hypertension Fatty liver disease, nonalcoholic High cholesterol Hyperlipidemia Hypothyroidism Irritable bowel syndrome Lymphedema of both lower extremities Mitral valve disorder Nocturnal hypoxia Obesity Osteoarthritis Overweight PND (paroxysmal nocturnal dyspnea) Pulmonary nodule Renal calculus Tachycardia TIA (transient ischemic attack) Home Medications aspirin 81 mg tablet,delayed release 81 mg PO DAILY 07/26/16 [History Last Taken 09/27/19] levothyroxine 25 mcg tablet 25 mcg PO DAILY THYROID 09/15/18 [History Last Taken 09/27/19] divalproex 500 mg tablet,delayed release 1,000 mg PO BID SEIZURES 03/20/19 [History Last Taken 09/27/19] metformin 1,000 mg tablet 1,000 mg PO BID DM 09/27/19 [History Last Taken 09/26/19] levetiracetam 500 mg tablet (Keppra) 750 mg PO BID SEIZURES 06/12/20 [History Last Taken Unknown] buspirone 15 mg tablet 15 mg PO TID 07/15/20 [History Last Taken Unknown] glipizide 10 mg tablet 10 mg PO BID 07/15/20 [History Last Taken Unknown] linaclotide 145 mcg capsule (Linzess) 145 mcg PO DAILY 07/15/20 [History Last Taken Unknown] nystatin 100,000 unit/gram topical powder (Nystop) 1 applic topical BID #45 ea 08/06/20 [Rx Last Taken Unknown] omeprazole 20 mg tablet,delayed release 20 mg PO DAILY #90 tabs 10/18/20 [Rx Last Taken Unknown] diphenhydramine HCl 25 mg capsule (Allergy (diphenhydramine)) 25 mg PO TID PRN ALLERGIES 01/10/21 [History Last Taken Unknown] ergocalciferol (vitamin D2) 50 mcg (2,000 unit) capsule 50 mcg PO DAILY 01/10/21 [History Last Taken Unknown] fluticasone propionate 50 mcg/actuation nasal spray,suspension (Allergy Relief (fluticasone)) 2 spray intranasal DAILY 01/10/21 [History Last Taken Unknown] gabapentin 300 mg capsule 300 mg PO BID 01/10/21 [History Last Taken Unknown] galcanezumab-gnlm 120 mg/mL subcutaneous pen injector 120 mg subcut QMONTH 01/10/21 [History Last Taken Unknown] ketoconazole 2 % topical cream 1 applic topical DAILY 01/10/21 [History Last Taken Unknown] loperamide 2 mg tablet 2 mg PO Q6H PRN 01/10/21 [History Last Taken Unknown] ipratropium 0.5 mg-albuterol 3 mg (2.5 mg base)/3 mL nebulization soln 3 ml inhalation Q6H #180 mL 03/26/21 [Rx Last Taken Unknown] montelukast 10 mg tablet 10 mg PO QHS ALLERGIES #90 tabs 03/26/21 [Rx Last Taken Unknown] budesonide-formoterol HFA 160 mcg-4.5 mcg/actuation aerosol inhaler (Symbicort) 2 puff inhalation BID #3 ea 06/26/21 [Rx Last Taken Unknown] loratadine 10 mg tablet 10 mg PO DAILY #90 tabs 06/26/21 [Rx Last Taken Unknown] albuterol sulfate 90 mcg/actuation aerosol inhaler (ProAir HFA) 2 puff inhalation Q6H #8.5 grams 06/27/21 [Rx Last Taken Unknown] insulin aspart (niacinamide)(U-100) 100 unit/mL (3 mL) subcu cartridge (Fiasp Penfill U-100 Insulin) 40 unit subcut TID 10/27/21 [History Last Taken Unknown] mometasone-formoterol HFA 200 mcg-5 mcg/actuation aerosol inhaler (Dulera) 2 puff inhalation BID 10/27/21 [History Last Taken Unknown] valacyclovir 500 mg tablet 500 mg PO DAILY 10/27/21 [History Last Taken Unknown] amlodipine 5 mg tablet 5 mg PO BID BP #180 tabs 06/02/22 [Rx Last Taken Unknown] furosemide 80 mg tablet (Lasix) 80 mg PO .COMPLEX edema #270 tabs 06/02/22 [Rx Last Taken Unknown] insulin degludec 200 unit/mL (3 mL) subcutaneous pen 120 unit subcut DAILY 06/02/22 [History Last Taken Unknown] isosorbide mononitrate 60 mg tablet,extended release 24 hr 60 mg PO BID 90 days #180 tabs 06/02/22 [Rx Last Taken Unknown] liraglutide 0.6 mg/0.1 mL (18 mg/3 mL) subcutaneous pen injector 1.8 mg subcut DAILY 06/02/22 [History Last Taken Unknown] metolazone 2.5 mg tablet 2.5 mg PO 2XW PRN edema #24 tabs 06/02/22 [Rx Last Taken Unknown] metoprolol succinate 200 mg tablet,extended release 24 hr 200 mg PO DAILY #90 tabs 06/02/22 [Rx Last Taken Unknown] multivitamin 1 tab PO DAILY 06/02/22 [History Last Taken Unknown] ranolazine 1,000 mg tablet,extended release,12 hr 1,000 mg PO Q12H #180 tabs 06/02/22 [Rx Last Taken Unknown] sacubitril 97 mg-valsartan 103 mg tablet (Entresto) 1 tab PO BID #180 tabs 06/02/22 [Rx Last Taken Unknown] spironolactone 25 mg tablet 25 mg PO DAILY #90 tabs 06/02/22 [Rx Last Taken Unknown] nitroglycerin 0.4 mg sublingual tablet (Nitrostat) 0.4 mg sublingual Q5-15M PRN Pain #100 tabs 06/03/22 [Rx Last Taken Unknown] apixaban 5 mg tablet (Eliquis) 5 mg PO BID Please change quantity for insurance to help cost #180 tabs 07/23/22 [Rx Last Taken Unknown] hydroxyzine pamoate 25 mg capsule 25 mg PO TID PRN PRN Anxiety #20 caps 10/13/22 [Rx Last Taken Unknown] Allergy/AdvReac Type Severity Reaction Status Date / Time Latex, Natural Rubber Allergy Mild Verified 10/12/22 18:31 torsemide AdvReac Mild Diarrhea Verified 10/12/22 18:31 Family History Mother CAD (coronary artery disease) Grandmother CAD (coronary artery disease) Surgical History H/O total hysterectomy History of arthroscopy of left knee History of left heart catheterization (LHC) (~10/18/18) History of total abdominal hysterectomy and bilateral salpingo-oophorectomy Social History number of children: 0 current occupational status: disabled Smoking Status: Never smoker second hand exposure: No alcohol intake: never substance use type: does not use caffeine: No what type of physical activity do you participate in: none seatbelt use: always do you feel safe at home: Yes additional social history: disability ROS ROS ED Constitutional Constitutional ED: Denies chills, fever(s) or sweats Eyes Eyes: Denies change in vision ENT ENT ED: Denies dysphagia or sore throat Cardiovascular Cardiovascular: Reports chest pain; Denies leg edema, palpitations or racing heartbeat Respiratory/Chest Respiratory/Chest: Denies cough, dyspnea or dyspnea on exertion Gastrointestinal Gastrointestinal: Reports nausea; Denies abdominal pain, diarrhea or vomiting Genitourinary Genitourinary ED: Denies dysuria, hematuria or urinary frequency Musculoskeletal Musculoskeletal: Denies back pain, extremity pain or neck pain Integumentary Denies rash or wounds Neurologic Neurologic: Denies headache(s), paresthesias or weakness EXAM Physical Exam Const Vital Signs: 10/12/22 18:31 10/12/22 20:44 10/12/22 20:44 Temperature 98 F Temperature Source Temporal Pulse Rate 87 81 Respiratory Rate 18 18 Blood Pressure 125/73 H 116/85 H Blood Pressure Mean 90 95 Pulse Ox 96 100 Oxygen Delivery Method Room Air Nasal Cannula Nasal Cannula Oxygen Flow Rate (L/min) 2 2 10/12/22 22:00 10/12/22 22:56 10/13/22 00:26 Temperature Temperature Source Pulse Rate 83 87 76 Respiratory Rate 18 16 18 Blood Pressure 120/63 100/73 103/62 Blood Pressure Mean 82 82 Pulse Ox 97 96 100 Oxygen Delivery Method Nasal Cannula Room Air Oxygen Flow Rate (L/min) 2 Positive well nourished, well developed and obese General Appearance ED: well developed and NAD Nutritional Appearance: obese HEENT Reports moist mucous membranes normocephalic and atraumatic Eyes PERRL, EOMs intact bilaterally and conjunctivae normal General Eye ED: Yes normal appearance of both eyes Neck no lymphadenopathy and supple General: Negative for tenderness Chest Wall Chest Narrative: reproducible tenderness left chest, there is no rash. Chest: tenderness Resp normal respiratory effort and normal air movement Effort and Inspection: symmetric chest movement; Negative for respiratory distress Cardio regular rate, regular rhythm and no murmurs Peripheral Pulses: pulses 2+ throughout GI normal to inspection, nondistended, normoactive bowel sounds and non-tender Palpation: Negative for guarding or rebound tenderness present Back/Spine no CVA tenderness and no thoracic nor lumbar tenderness Extremity normal to inspection Extremity Narrative: Minimal lower extremity edema. General Extremety ED: Negative for tenderness Neuro oriented x3 and no sensory deficits noted Sensorium / Orientation: awake and alert Skin no rashes or lesions noted and no wounds MDM MDM MDM Narrative Medical decision making narrative: Interventions / MDM: Differential diagnosis: Musculoskeletal chest pain, ACS, atypical chest pain, Diagnosis considered but do not suspect: Pneumothorax however normal breath sounds. PE however on Eliquis My EKG interpretation: Sinus rhythm rate of 81, no ST or T wave changes PVC noted. KG #2 at 2331 sinus [address] or T wave changes. Rate was 91 Imaging independently reviewed and interpreted by myself: N/A External documents reviewed: Review of cardiac cath in 2019 no obstructive coronary disease, no narrowing noted from report. Test considered but not ordered:N/A ED course: Patient given aspirin cardiac work-up initiated initial troponin was negative. Re-evaluation: stable, rewarming normal chest discomfort from earlier is reproducible. She agreed with Tylenol. Pending repeat troponin. However records were reviewed from 2019 had normal coronary arteries, less likely CAD with her symptoms. 2325: Per nursing patient reported increasing chest pain, will repeat EKG. this was negative. She given Ativan. Patient monitored improving symptoms. She had a normal cardiac cath in 2019 less likely coronary artery disease. She is reassured. Prescription for hydroxyzine to use as needed. Outpatient follow-up. Return precautions. All questions were answered. Disposition discussed with patient/family/significant other: Patient and father Case discussed with consulting clinician: N/A Lab Data Attestation: I reviewed the patient's lab results. Labs: Laboratory Results - last 24 hr 10/12/22 10/12/22 10/12/22 20:40 20:40 22:53 WBC 6.6 RBC 4.06 L Hgb 12.0 Hct 38.4 MCV 94.6 MCH 29.6 MCHC 31.3 L RDW Std Deviation 49.1 H RDW Coeff of Juan [place] 14.0 Plt Count 221 MPV 11.2 Immature Gran % (Auto) 0.500 Neut % (Auto) 65.0 Lymph % (Auto) 22.4 [place] % (Auto) 7.6 Eos % (Auto) 4.0 Baso % (Auto) 0.5 Absolute Neuts (auto) 4.3 Absolute Lymphs (auto) 1.47 Nucleated RBC % 0 Sodium 140 Potassium 4.0 Chloride 104 Carbon Dioxide 29.0 Anion Gap 7 BUN 25 H Creatinine 0.80 Estim Creat Clear Calc 74.38 Est GFR (MDRD) Af Amer 96 Est GFR (MDRD) Non-Af 79 BUN/Creatinine Ratio 31.3 H Glucose 102 Calcium 9.5 Troponin I High Sens 4 3 Radiography Diagnostic Testing: Clinical Impression(s) from Imaging Studies Chest X-Ray 10/12/22 22:22 IMPRESSION: No significant interval change. No acute findings in the chest. Electronically Signed: Santhosh Anaya MD at 22:50 EST Reading Location ID and State: [facility] / [place] Tel , Service support , EKG Initial EKG: Attestation: I personally reviewed and interpreted this EKG as follows: Comments: Sinus rhythm rate of 81, no ST or T wave changes PVC noted. Follow-up EKG: Attestation: I personally reviewed and interpreted this EKG as follows: Comments: Sinus rate of [address] or T wave changes PVC noted Discharge Plan Triage Chief Complaint: Chest Pain ED Provider: Jason Howard Dx/Rx/DC Orders Clinical Impression: Chest wall pain, Paroxysmal atrial fibrillation, Anxiety, Chronic anticoagulation Instructions: ED Strain Chest Wall Prescriptions: New hydroxyzine pamoate [hydroxyzine pamoate] 25 mg capsule 25 mg PO TID PRN PRN (Reason: Anxiety) Qty: 20 0RF No Action diphenhydramine HCl [Allergy (diphenhydramine)] 25 mg capsule 25 mg PO TID PRN (Reason: ALLERGIES) levetiracetam [Keppra] 500 mg tablet 750 mg PO BID nystatin [Nystop] 100,000 unit/gram powder 1 applic TOPICAL BID Qty: 45 7RF glipizide 10 mg tablet 10 mg PO BID Linzess 145 mcg capsule 145 mcg PO DAILY ketoconazole 2 % cream 1 applic TOPICAL DAILY Fiasp Penfill U-100 Insulin 100 unit/mL (3 mL) cartridge 40 unit SC TID liraglutide 0.6 mg/0.1 mL (18 mg/3 mL) pen injector 1.8 mg SC DAILY montelukast 10 mg tablet 10 mg PO QHS Qty: 90 3RF ipratropium-albuterol 0.5 mg-3 mg(2.5 mg base)/3 mL solution for nebulization 3 ml INHALATION Q6H Qty: 180 3RF Emgality Pen 120 mg/mL pen injector 120 mg subcut QMONTH Label Comments: INJECT 120 MG INTO THE SKIN EVERY 30 DAYS. fluticasone propionate [Allergy Relief (fluticasone)] 50 mcg/actuation spray,suspension 2 spray intranasal DAILY Rx Instructions: administer into each nostril gabapentin 300 mg capsule 300 mg PO BID loperamide 2 mg tablet 2 mg PO Q6H PRN ergocalciferol (vitamin D2) 50 mcg (2,000 unit) capsule 50 mcg PO DAILY insulin degludec 200 unit/mL (3 mL) insulin pen 120 unit subcut DAILY Dulera 200-5 mcg/actuation HFA aerosol inhaler 2 puff inhalation BID valacyclovir 500 mg tablet 500 mg PO DAILY loratadine 10 mg tablet 10 mg PO DAILY Qty: 90 4RF budesonide-formoterol [Symbicort] 160-4.5 mcg/actuation HFA aerosol inhaler 2 puff INHALATION BID Qty: 3 4RF Rx Instructions: J44.9 - COPD administer with spacer, rinse mouth after each use albuterol sulfate [ProAir HFA] 90 mcg/actuation HFA aerosol inhaler 2 puff INHALATION Q6H Qty: 8.5 3RF amlodipine 5 mg tablet 5 mg PO BID Qty: 180 4RF furosemide [Lasix] 80 mg tablet 80 mg PO .COMPLEX Qty: 270 4RF Rx Instructions: 80 mg PO take 80mg in the am and 40mg in the afternoon; isosorbide mononitrate 60 mg tablet extended release 24 hr 60 mg PO BID 90 Days Qty: 180 3RF metolazone 2.5 mg tablet 2.5 mg PO 2XW PRN (Reason: edema) Qty: 24 4RF metoprolol succinate 200 mg tablet extended release 24 hr 200 mg PO DAILY Qty: 90 4RF ranolazine 1,000 mg tablet extended release 12 hr 1,000 mg PO Q12H Qty: 180 4RF Entresto 97-103 mg tablet 1 tab PO BID Qty: 180 4RF spironolactone 25 mg tablet 25 mg PO DAILY Qty: 90 4RF aspirin 81 MG tablet 81 mg PO DAILY levothyroxine 25 mcg tablet 25 mcg PO DAILY multivitamin Tablet 1 tab PO DAILY metformin 1,000 MG tablet 1,000 mg PO BID buspirone 15 mg tablet 15 mg PO TID divalproex 500 mg tablet,delayed release (DR/EC) 1,000 mg PO BID omeprazole 20 mg tablet,delayed release (DR/EC) 20 mg PO DAILY Qty: 90 3RF nitroglycerin [Nitrostat] 0.4 mg tablet, sublingual 0.4 mg SUBLINGUAL Q5-15M PRN (Reason: Pain) Qty: 100 3RF Eliquis 5 mg tablet 5 mg PO BID Qty: 180 3RF Primary Care Provider: Sanjana Chun Referrals: Sanjana Chun MD [Primary Care Provider] - 3-5 Days Activity Restrictions/Additional Instructions: Cardiac work-up negative with 2 heart enzymes. You had a heart cath in 2019 with clear coronaries. Take medication as prescribed. Follow-up with your doctors. Disposition Disposition: Home, Self Care
[2022-10-12] MEDS: Ondansetron 4 MG/2 ML Vial IV ×2 (20:38→22:55)
[2022-10-12] MEDS: Aspirin 81 MG TAB.CHEW 324 MG PO (20:38)
[2022-10-12 20:44] VITALS: BP 116/85; PULSE 81; RESP 18; O2SAT 100; BMI 64.3
[2022-10-12 21:14] LABS: Anion Gap 7 (5-15); BUN 25 mg/dL (7-18); BUN/Creat Ratio 31.3 RATIO (10-20); Calcium,Total 9.5 mg/dL (8.5-10.1); Chloride 104 mmol/L (98-107); EST Glomerular Filtration Rate 79 mL/min (>60); Est Glom Filt Rate - Afr Amer 96 mL/min (>60); Estimated Creatinine Clearance 74.38 ml/min; Glucose 102 mg/dL (74-106); Sodium Level 140 mmol/L (136-145); Troponin-I HS (w/2H Reflex) 4 pg/mL (3.0-54.0)
[2022-10-12 21:15] LABS: Absolute Lymphocyte Count 1.47 X10^3/uL (0.83-4.51); Absolute Neutrophil Count 4.3 X10^3/uL (2.0-7.7); Basophil# 0.03 X10^3/uL; Basophil% 0.5 % (0-1); Eosinophil# 0.26 X10^3/uL; Hematocrit 38.4 % (37-47); Lymphocyte # 1.47 X10^3/ul (0.83-4.51); Lymphocyte % 22.4 % (19-41); Mean Corp Hgb Conc 31.3 g/dL (32-36); Mean Corpuscular Hgb 29.6 pg (27.0-32.0); Mean Corpuscular Volume 94.6 fL (81-99); Mean Platelet Vol. 11.2 fl (6.2-12.0); Monocyte% 7.6 % (0-10); NRBC Flagged by Analyzer 0 % (0-5); Neutrophil # 4.26 X10^3/uL (2.7-7.7); Platelet Count 221 K/mm3 (150-450); RBC Distribution Width SD 49.1 fl (35.1-43.9); Red Blood Count 4.06 M/mm3 (4.2-5.4); White Blood Count 6.6 K/mm3 (4.4-11.0)
[2022-10-12 22:00] VITALS: BP 120/63; PULSE 83; RESP 18; O2SAT 97
--- NOTE | 2022-10-12 22:22 | RAD_ITS ---
EXAM: XR CHEST, 2 VIEWS CLINICAL INDICATION: chest pain TECHNIQUE: Frontal and lateral views of the chest. This report was created using [employer] report generation technology. COMPARISON: Previous chest radiographs of 07/16/2021 and 09/27/2019. FINDINGS: LIMITATIONS: Motion artifact on the lateral view. LUNGS AND PLEURAL SPACES: Unremarkable. No consolidation or edema. No pneumothorax. No effusion. HEART: Unremarkable. Cardiac silhouette not enlarged. MEDIASTINUM: Central airways and mediastinal contour are unremarkable. Trachea is midline. No mediastinal widening. BONES/JOINTS: Calcific tendinitis/bursitis of the right shoulder. No acute osseous abnormality. SOFT TISSUES: Large body habitus. RAD/Chest PA and Lateral IMPRESSION: No significant interval change. No acute findings in the chest. Electronically Signed: Santhosh Anaya MD at 22:50 EST ,
[2022-10-12] MEDS: Acetaminophen 500 MG Tablet 1000 MG PO (22:51)
[2022-10-12 22:53] LABS: Reflex Troponin-HS? (from REC) Y
[2022-10-12 22:56] VITALS: BP 100/73; PULSE 87; RESP 16; O2SAT 96
--- NOTE | 2022-10-12 23:22 | EKG12_ITS ---
Test Reason : CP Blood Pressure : / mmHG Vent. Rate : 081 BPM Atrial Rate : 081 BPM P-R Int : 176 ms QRS Dur : 096 ms QT Int : 384 ms P-R-T Axes : 000 124 151 degrees QTc Int : 446 ms Consider Limb Lead Misplacement Recommend Repeat ECG Probable Sinus Rhythm with occasional PVC Low voltage QRS Confirmed by JAN NOVOA, DEIDRA ([id number]), electronic news gathering editor MANDO CORNEJO ([id number]) on 10/14/2022 1:15:52 PM Referred By: DAYTON Confirmed By:DEIDRA MONTOYA MD
[2022-10-12 23:23] LABS: Troponin-I HS 3 pg/mL (3.0-54.0)
[2022-10-12] MEDS: LORazepam 1 MG Tablet PO (23:42)
[2022-10-13 00:26] VITALS: BP 103/62; PULSE 76; RESP 18; O2SAT 100
== END 2022-10-13 02:59 | disposition home or self-care (01) ==
PROVIDERS: Emergency Provider Emergency Medicine; PCP Family Medicine; Visit Provider Emergency Medicine
DX: I48.0 Paroxysmal atrial fibrillation (principal); J44.9 Chronic obstructive pulmonary disease, unspecified; I42.9 Cardiomyopathy, unspecified; E11.9 Type 2 diabetes mellitus without complications; Z79.4 Long term (current) use of insulin; I10 Essential (primary) hypertension; Z79.01 Long term (current) use of anticoagulants; F41.9 Anxiety disorder, unspecified; I25.10 Atherosclerotic heart disease of native coronary artery without angina pectoris; E78.5 Hyperlipidemia, unspecified; G43.709 Chronic migraine without aura, not intractable, without status migrainosus; Z79.899 Other long term (current) drug therapy; Z79.82 Long term (current) use of aspirin; E03.9 Hypothyroidism, unspecified; Z86.73 Personal history of transient ischemic attack (TIA), and cerebral infarction without residual deficits; K58.9 Irritable bowel syndrome, unspecified; Z79.51 Long term (current) use of inhaled steroids; R07.89 Other chest pain
CPT/HCPCS: 71046; 80048; 84484; 85025; 93005; 96374; 96376; 99285; J7030; A4216; J2405

== ENCOUNTER 2022-10-21 09:45 | Inpatient (IN) | payer OTHER, MEDICARE, SELFPAY ==
--- NOTE | 2022-10-21 08:42 | EKG12_ITS ---
Test Reason : PRE FLECKENIDE BASELINE EKG Blood Pressure : / mmHG Vent. Rate : 078 BPM Atrial Rate : 078 BPM P-R Int : 194 ms QRS Dur : 088 ms QT Int : 402 ms P-R-T Axes : 048 053 050 degrees QTc Int : 458 ms Normal sinus rhythm Low voltage QRS Borderline ECG Confirmed by JAN NOVOA, JONNY ([id number]), design editor MANDO CORNEJO ([id number]) on 10/22/2022 9:07:50 AM Referred By: Jonny Montoya Confirmed By:JONNY MONTOYA MD
--- NOTE | 2022-10-21 08:50 | HP.PCM.CAR_ITS ---
Documented by User: Jose Palomo NP, [employer] 10/21/22 09:05 HPI - General General Date of Admission: 10/21/22 HPI Narrative RICHELLE HEREDIA, is a 57 F who presents to the hospital for admission for flecainide therapy. She has a history of of a history of chronic diastolic dysfunction/diastolic mediated CHF, PAF (noted on 30 day in 05/2022) hyperlipidemia, hypertension, diabetes mellitus, TIA, and lower peripheral pitting edema. Patient was seen with electrophysiology team, Dr. Wright at [facility] in July 2022 after completion of 30-day event monitor showed PVC and paroxysmal atrial fibrillation. Care was discussed in detail and final recommendation was to consider hospitalization to begin flecainide 50 mg p.o. twice daily and uptitrating as necessary. She was deemed not a candidate for catheter ablation. It was not felt that her PVCs were the main source of her symptoms. She was seen in the emergency room on 10/12/2022 for chest discomfort. Her work- up was negative. Her chest pain was felt to be noncardiac related. She denies chest pain today. She continues with shortness of breath with activity that is at baseline. She denies orthopnea or PND. She denies lightheadedness, dizziness, near-syncope, or syncope. She continues with palpitations. She continues to express concerns regarding bilateral lower extremity edema. [facility] Medical History (Updated 10/21/22 @ 12:[address] Joey Watkins MD) Abnormal nuclear stress test Afib Albuminuria Allergic rhinitis Anemia Arthritis Asthma Atherosclerotic heart disease of [place] coronary artery without angina pectoris Cerebral atherosclerosis Chest pain Chronic migraine Chronic respiratory failure with hypoxia COPD (chronic obstructive pulmonary disease) Cystic fibrosis Depression Diabetes mellitus type 2, controlled Diastolic dysfunction SUH (dyspnea on exertion) Eczema Endometriosis Essential hypertension Fatty liver disease, nonalcoholic High cholesterol Hyperlipidemia Hypothyroidism Irritable bowel syndrome Lymphedema of both lower extremities Mitral valve disorder Nocturnal hypoxia Obesity Osteoarthritis Overweight PND (paroxysmal nocturnal dyspnea) Pulmonary nodule Renal calculus Tachycardia TIA (transient ischemic attack) Home Medications aspirin 81 mg tablet,delayed release 81 mg PO DAILY 07/26/16 [History Last Taken 09/27/19] levothyroxine 25 mcg tablet 25 mcg PO DAILY THYROID 09/15/18 [History Last Taken 09/27/19] divalproex 500 mg tablet,delayed release 1,000 mg PO BID SEIZURES 03/20/19 [History Last Taken 09/27/19] metformin 1,000 mg tablet 1,000 mg PO BID DM 09/27/19 [History Last Taken 09/26/19] levetiracetam 500 mg tablet (Keppra) 750 mg PO BID SEIZURES 06/12/20 [History Last Taken Unknown] buspirone 15 mg tablet 15 mg PO TID 07/15/20 [History Last Taken Unknown] glipizide 10 mg tablet 10 mg PO BID 07/15/20 [History Last Taken Unknown] linaclotide 145 mcg capsule (Linzess) 145 mcg PO DAILY 07/15/20 [History Last Taken Unknown] nystatin 100,000 unit/gram topical powder (Nystop) 1 applic topical BID #45 ea 08/06/20 [Rx Last Taken Unknown] omeprazole 20 mg tablet,delayed release 20 mg PO DAILY #90 tabs 10/18/20 [Rx [place] st Taken Unknown] diphenhydramine HCl 25 mg capsule (Allergy (diphenhydramine)) 25 mg PO TID PRN ALLERGIES 01/10/21 [History Last Taken Unknown] ergocalciferol (vitamin D2) 50 mcg (2,000 unit) capsule 50 mcg PO DAILY 01/10/21 [History Last Taken Unknown] fluticasone propionate 50 mcg/actuation nasal spray,suspension (Allergy Relief (fluticasone)) 2 spray intranasal DAILY 01/10/21 [History Last Taken Unknown] gabapentin 300 mg capsule 300 mg PO BID 01/10/21 [History Last Taken Unknown] galcanezumab-gnlm 120 mg/mL subcutaneous pen injector 120 mg subcut QMONTH 01/10/21 [History Last Taken Unknown] ketoconazole 2 % topical cream 1 applic topical DAILY 01/10/21 [History Last Taken Unknown] loperamide 2 mg tablet 2 mg PO Q6H PRN Diarrhea 01/10/21 [History Last Taken Unknown] ipratropium 0.5 mg-albuterol 3 mg (2.5 mg base)/3 mL nebulization soln 3 ml inhalation Q6H #180 mL 03/26/21 [Rx Last Taken Unknown] montelukast 10 mg tablet 10 mg PO QHS ALLERGIES #90 tabs 03/26/21 [Rx Last Taken Unknown] budesonide-formoterol HFA 160 mcg-4.5 mcg/actuation aerosol inhaler (Symbicort) 2 puff inhalation BID #3 ea 06/26/21 [Rx Last Taken Unknown] loratadine 10 mg tablet 10 mg PO DAILY #90 tabs 06/26/21 [Rx Last Taken Unknown] albuterol sulfate 90 mcg/actuation aerosol inhaler (ProAir HFA) 2 puff inhalation Q6H #8.5 grams 06/27/21 [Rx Last Taken Unknown] insulin aspart (niacinamide)(U-100) 100 unit/mL (3 mL) subcu cartridge (Fiasp Penfill U-100 Insulin) 40 unit subcut TID 10/27/21 [History Last Taken Unknown] mometasone-formoterol HFA 200 mcg-5 mcg/actuation aerosol inhaler (Dulera) 2 puff inhalation BID 10/27/21 [History Last Taken Unknown] valacyclovir 500 mg tablet 500 mg PO DAILY 10/27/21 [History Last Taken Unknown] amlodipine 5 mg tablet 5 mg PO BID BP #180 tabs 06/02/22 [Rx Last Taken Unknown] furosemide 80 mg tablet (Lasix) 80 mg PO .COMPLEX edema #270 tabs 06/02/22 [Rx Last Taken Unknown] insulin degludec 200 unit/mL (3 mL) subcutaneous pen 120 unit subcut DAILY 06/02/22 [History Last Taken Unknown] isosorbide mononitrate 60 mg tablet,extended release 24 hr 60 mg PO BID 90 days #180 tabs 06/02/22 [Rx Last Taken Unknown] liraglutide 0.6 mg/0.1 mL (18 mg/3 mL) subcutaneous pen injector 1.8 mg subcut DAILY 06/02/22 [History Last Taken Unknown] metolazone 2.5 mg tablet 2.5 mg PO 2XW PRN edema #24 tabs 06/02/22 [Rx Last Taken Unknown] metoprolol succinate 200 mg tablet,extended release 24 hr 200 mg PO DAILY #90 tabs 06/02/22 [Rx Last Taken Unknown] multivitamin 1 tab PO DAILY 06/02/22 [History Last Taken Unknown] ranolazine 1,000 mg tablet,extended release,12 hr 1,000 mg PO Q12H #180 tabs 06/02/22 [Rx Last Taken Unknown] sacubitril 97 mg-valsartan 103 mg tablet (Entresto) 1 tab PO BID #180 tabs 06/02/22 [Rx Last Taken Unknown] spironolactone 25 mg tablet 25 mg PO DAILY #90 tabs 06/02/22 [Rx Last Taken Unknown] nitroglycerin 0.4 mg sublingual tablet (Nitrostat) 0.4 mg sublingual Q5-15M PRN Pain #100 tabs 06/03/22 [Rx Last Taken Unknown] apixaban 5 mg tablet (Eliquis) 5 mg PO BID Please change quantity for insurance to help cost #180 tabs 07/23/22 [Rx Last Taken Unknown] hydroxyzine pamoate 25 mg capsule 25 mg PO TID PRN PRN Anxiety #20 caps 10/13/22 [Rx Last Taken Unknown] Allergy/AdvReac Type Severity Reaction Status Date / Time Latex, Natural Rubber Allergy Mild Verified 10/12/22 18:31 torsemide AdvReac Mild Diarrhea Verified 10/12/22 18:31 Family History Mother CAD (coronary artery disease) Grandmother CAD (coronary artery disease) Surgical History H/O total hysterectomy History of arthroscopy of left knee History of left heart catheterization (LHC) (~10/18/18) History of total abdominal hysterectomy and bilateral salpingo-oophorectomy Social History number of children: 0 current occupational status: disabled Smoking Status: Never smoker second hand exposure: No alcohol intake: never substance use type: does not use caffeine: No what type of physical activity do you participate in: none seatbelt use: always do you feel safe at home: Yes additional social history: disability ROS ROS Narrative Patient seen and evaluated. She appears in no acute distress. Her main concern is ongoing lower extreme edema, shortness of breath with activity, and PVCs. Constitutional Constitutional: Reports systems reviewed and no addt'l complaints, except as documented Cardiovascular Cardiovascular: Reports dyspnea on exertion, edema, leg edema and palpitations; Denies chest pain, chest pain at rest, chest pain with activity, diaphoresis, dizziness, dyspnea at rest, lightheadedness, orthopnea or paroxysmal nocturnal dyspnea Respiratory/Chest Respiratory/Chest: Reports systems reviewed and no addt'l complaints, except as documented Gastrointestinal Gastrointestinal: Reports systems reviewed and no addt'l complaints, except as documented Integumentary Integumentary: Reports dry skin Neurologic Neurologic: Reports systems reviewed and no addt'l complaints, except as documented Physical Exam Physical Exam General: Positive for Well nourished and Obese Head: Positive for Normocephalic ENT: Positive for Moist Mucous Membranes Neck: Negative for - (JVD, carotid bruit) Cardiovascular: Positive for Regular rate, Regular rhythm, No murmurs, Normal S1 and Normal S2 Respiratory: Positive for No distress and CTA bilaterally Abdomen: Positive for Soft and Nontender Extremeties: Radial pulses- bilateral 2+, Lower extremity pulses 2+, Lower extremity edema 2+, dry skin Skin: Positive for No rash Neurological: Positive for Alert and Oriented x3 Psychological: Positive for Normal affect and Normal Mood Cardiology Labs/Tests Cardiology Labs/Tests: Echocardiogram: 02-20-2020 Interpretation Summary The study was technically difficult. Contrast injection was performed. Left ventricular systolic function is normal. The estimated ejection fraction is 65 %. Trivial mitral valve insufficiency. Trivial tricuspid valve insufficiency. Unable to estimate RV systolic pressure/pulmonary artery pressure due to technically difficult study. Transmitral doppler flow suggestive of impaired relaxation of left ventricle Echocardiogram from 01/30/2019 at [facility]: Interpretation Summary A transthoracic echocardiogram was performed 2D echo, color-flow and Doppler. Study image quality is grade C-, below average. Left ventricular systolic function is normal. LVEF estimated at 57% by modified Luis's method. The right ventricle is mildly dilated. Right ventricular systolic function is normal. There is moderate mitral regurgitation. The left atrium is mildly dilated.? Inferior vena cava is mildly dilated in size. Stress test from 10/06/2018: Procedure: Pharmacologic stress nuclear imaging study Indications: Chest pain; CAD Consent: Per the patient Procedure: The patient underwent pharmacologic (Regadenoson) evaluation with a peak heart rate of 120? beats per minute (71%? predicted maximal heart rate) and a peak blood pressure of 140/84? mmHg. The baseline ECG demonstrated Normal sinus rhythm .? The peak pharmacologic ECG demonstrated no obvious ECG changes . There were occasional PVCs pretest, during infusion, and recovery . There was no complaint of chest discomfort during pharmacologic infusion or recovery. The examination was discontinued secondary to completion of protocol. Impression: 1.? Pharmacologic (Regadenoson) evaluation 2.? Peak pharmacologic ECG with no obvious ECG changes . 3. There were occasional PVCs pretest, during infusion, and recovery . 4.? Nuclear images pending Myocardial perfusion imaging study: Technique: The patient was injected with 14.8? millicuries of technetium 99m Cardiolite and subsequently rest SPECT Cardiolite nuclear imaging was obtained in the horizontal long, vertical long, and short axis views. The patient underwent pharmacologic (Regadenoson) evaluation with a peak heart rate of 120? beats per minute (71 % percent predicted maximal heart rate) and a peak blood pressure of 140/84? mmHg. The patient was injected with 44.7? millicuries of technetium 99m Cardiolite and subsequently stress SPECT Cardiolite nuclear imaging was obtained in the horizontal long, vertical long, and short axis views.? A gated Cardiolite study at peak stress was obtained. Interpretation: Rest and stress SPECT Cardiolite nuclear imaging status post realignment, normalization, and attenuation correction demonstrate areas of an extracardiac/gastrointestinal tracer uptake near the inferior segments which appeared to be more prominent at rest as opposed a stress. There is no notation of diminished tracer uptake and portions of the distal anterior/anterior apical segments which appears to be somewhat more prominent following stress as opposed to rest. . There is end systolic thickening and brightening. The gated Cardiolite study demonstrates myocardial thickening and inward wall motion.? The reported LVEF is 63 %. Impression: 1. Rest and stress SPECT Cardiolite nuclear imaging demonstrates myocardial perfusion changes appearing compatible with areas of extra card iac/gastrointestinal tracer uptake in the inferior segments as well as notation of diminished tracer uptake in portions of the distal anterior and anteroapical segment which appears to be somewhat more prominent following stress as opposed to wrest potentially compatible with the Effexor shifting soft tissue attenuation/artifact, however, an area of myocardial ischemia cannot necessarily be excluded . 2.? The gated Cardiolite study reports an LVEF of 63 %. Heart catheterization on 10/18/2018: CORONARY ANGIOGRAPHY DOMINANCE:? Right Dominant LEFT HEART ASSESSMENT Left Ventricular Ejection Fraction: by LV Gram 65 % Normal LV wall motion Normal Left Ventricular End Diastolic Pressure LVEDP: 12 mmHg LEFT MAIN: Angiographically normal LEFT ANTERIOR DESCENDING ARTERY: Angiographically normal CIRCUMFLEX ARTERY: Angiographically normal RIGHT CORONARY ARTERY: Angiographically normal VALVE FINDINGS: Normal Aortic Valve function Normal Mitral Valve function AORTIC ROOT: Angiographically normal Her previous?cardiac catheterization was performed in January of 2015?at [facility]. Per report the left ventricle is normal with an LVEF of 65%, the left main coronary artery apparently had no significant disease, the LAD had a mid 30 to 40% stenosis, the LCx had 20% stenosis, the RCA had the PDA and posterolateral branch 20% stenosis. 30-day event monitor from May 2022: Sinus rhythm, 2 episodes of atrial fibrillation/flutter, average heart rate 92 bpm, ventricular ectopy 12%, and symptoms appear to correlate with PVC. 30-day event monitor from 02/08/2019: Sinus rhythm/sinus tachycardia; PVCs.? Symptoms reported occurring with sinus rhythm/sinus tachycardia and PVCs.? No atrial dysrhythmias or wide complex runs reported. 48 Hour 09/22/2019: Sinus rhythm; rare PAC/PVC; no narrow / wide complex runs; no atrial fibrillation / flutter reported Holter monitor from 11/13/2020: Sinus rhythm/sinus tachycardia with periods of paroxysmal atrial tachycardia. Minimum heart rate 62 bpm. Maximum heart 133 beats minute. Average heart rate 105 beats minute. Ventricular ectopy 7.4%. Supraventricular ectopy 0.6%. No atrial fibrillation noted. The patient kept a 24-hour diary and noted chest pain, shortness of breath, rapid heart rate, palpitation, arm pain, and heart hurts multiple times but did not record specific times. Carotid Duplex 11/06/2021: Interpretation Summary No hemodynamically significant plaque or stenosis bilateral internal carotid arteries with less than 50% stenosis Less than 50% stenosis of bilateral external carotid arteries Patent and antegrade vertebral arteries bilaterally Pulmonary Function Test from 05/26/2021: Impression: Grossly normal pulmonary function testing with some stigmata of small airways disease and no significant change compared to 2017. Assessment & Plan Assessment/Plan (1) Paroxysmal atrial fibrillation: PLAN: Given her 30-day event finding showing 2 episodes of atrial fibrillation and previous history of CVA/TIA, she will be begin flecainide therapy 50 mg p.o. twice daily with daily ECG. She will continue Eliquis therapy for CVA protection. She continue metoprolol succinate. We will need to monitor her rate closely and adjust metoprolol as indicated. (2) PVC (premature ventricular contraction): PLAN: Her 30-day event monitor showed PVC burden of 12%. Flecainide may assist with this. Her chest pain noted during such time seem to correlate with PVCs. Hopefully with flecainide therapy and PVC suppression, this improves her symptoms. She will continue metoprolol with adjustment as indicated. (3) Diastolic dysfunction: PLAN: This remains a very loose diagnosis. She does have multiple chronic health issues that increase her risk of congestive heart failure.? Her heart catheterization in October 2018 showed normal left ventricular end-diastolic p ressure and normal coronary arteries.? Her echocardiogram in May 2020 showed normal left ventricular diastolic function and an ejection fraction of 55% with normal global LV myocardial strain. Her BNP has been has been normal. Of concern is that she is on high-dose of multiple diuretics to assist with volume control.? It remains challenging to discern if she requires such medications at such dosages.? She was strongly encouraged to review medications together to avoid polypharmacy to avoid any future issues.? She expresses reluctance and wishes to continue all medications as she is currently. She wishes to have IV Lasix therapy during hospitalization to assist with lower extremity edema. Her lower extreme edema is thought to be multifactorial including diet, activity, and and weight. (4) Mitral valve disorder: PLAN: Her most recent echocardiogram in February 2020 showed ejection fraction 65% trivial mitral valve insufficiency. This appears stable. We will continue to monitor this over time. (5) Hyperlipidemia: QUALIFIERS: Hyperlipidemia type: unspecified Qualified Code(s): E78.5 - Hyperlipidemia, unspecified PLAN: She will continue risk factor and lifestyle modification. Documented by User: Dr. Jonny Villagomez MD 10/21/22 19:52 HPI - General General Date of Admission: 10/21/22 [facility] Medical History (Updated 10/21/22 @ 12:[address] Joye Watkins MD) Abnormal nuclear stress test Afib Albuminuria Allergic rhinitis Anemia Arthritis Asthma Atherosclerotic heart disease of [place] coronary artery without angina pectoris Cerebral atherosclerosis Chest pain Chronic migraine Chronic respiratory failure with hypoxia COPD (chronic obstructive pulmonary disease) Cystic fibrosis Depression Diabetes mellitus type 2, controlled Diastolic dysfunction SUH (dyspnea on exertion) Eczema Endometriosis Essential hypertension Fatty liver disease, nonalcoholic High cholesterol Hyperlipidemia Hypothyroidism Irritable bowel syndrome Lymphedema of both lower extremities Mitral valve disorder Nocturnal hypoxia Obesity Osteoarthritis Overweight PND (paroxysmal nocturnal dyspnea) Pulmonary nodule Renal calculus Tachycardia TIA (transient ischemic attack) Home Medications aspirin 81 mg tablet,delayed release 81 mg PO DAILY 07/26/16 [History Last Taken 09/27/19] levothyroxine 25 mcg tablet 25 mcg PO DAILY THYROID 09/15/18 [History Last Taken 09/27/19] divalproex 500 mg tablet,delayed release 1,000 mg PO BID SEIZURES 03/20/19 [History Last Taken 09/27/19] metformin 1,000 mg tablet 1,000 mg PO BID DM 09/27/19 [History Last Taken 09/26/19] levetiracetam 500 mg tablet (Keppra) 750 mg PO BID SEIZURES 06/12/20 [History Last Taken Unknown] buspirone 15 mg tablet 15 mg PO TID 07/15/20 [History Last Taken Unknown] glipizide 10 mg tablet 10 mg PO BID 07/15/20 [History Last Taken Unknown] linaclotide 145 mcg capsule (Linzess) 145 mcg PO DAILY 07/15/20 [History Last Taken Unknown] nystatin 100,000 unit/gram topical powder (Nystop) 1 applic topical BID #45 ea 08/06/20 [Rx Last Taken Unknown] omeprazole 20 mg tablet,delayed release 20 mg PO DAILY #90 tabs 10/18/20 [Rx Last Taken Unknown] diphenhydramine HCl 25 mg capsule (Allergy (diphenhydramine)) 25 mg PO TID PRN ALLERGIES 01/10/21 [History Last Taken Unknown] ergocalciferol (vitamin D2) 50 mcg (2,000 unit) capsule 50 mcg PO DAILY 01/10/21 [History Last Taken Unknown] fluticasone propionate 50 mcg/actuation nasal spray,suspension (Allergy Relief (fluticasone)) 2 spray intranasal DAILY 01/10/21 [History Last Taken Unknown] gabapentin 300 mg capsule 300 mg PO BID 01/10/21 [History Last Taken Unknown] galcanezumab-gnlm 120 mg/mL subcutaneous pen injector 120 mg subcut QMONTH 01/10/21 [History Last Taken Unknown] ketoconazole 2 % topical cream 1 applic topical DAILY 01/10/21 [History Last Taken Unknown] loperamide 2 mg tablet 2 mg PO Q6H PRN Diarrhea 01/10/21 [History Last Taken Unknown] ipratropium 0.5 mg-albuterol 3 mg (2.5 mg base)/3 mL nebulization soln 3 ml inhalation Q6H #180 mL 03/26/21 [Rx Last Taken Unknown] montelukast 10 mg tablet 10 mg PO QHS ALLERGIES #90 tabs 03/26/21 [Rx Last Taken Unknown] budesonide-formoterol HFA 160 mcg-4.5 mcg/actuation aerosol inhaler (Symbicort) 2 puff inhalation BID #3 ea 06/26/21 [Rx Last Taken Unknown] loratadine 10 mg tablet 10 mg PO DAILY #90 tabs 06/26/21 [Rx Last Taken Unknown] albuterol sulfate 90 mcg/actuation aerosol inhaler (ProAir HFA) 2 puff inhalation Q6H #8.5 grams 06/27/21 [Rx Last Taken Unknown] insulin aspart (niacinamide)(U-100) 100 unit/mL (3 mL) subcu cartridge (Fiasp Penfill U-100 Insulin) 40 unit subcut TID 10/27/21 [History Last Taken Unknown] mometasone-formoterol HFA 200 mcg-5 mcg/actuation aerosol inhaler (Dulera) 2 puff inhalation BID 10/27/21 [History Last Taken Unknown] valacyclovir 500 mg tablet 500 mg PO DAILY 10/27/21 [History Last Taken Unknown] amlodipine 5 mg tablet 5 mg PO BID BP #180 tabs 06/02/22 [Rx Last Taken Unknown] furosemide 80 mg tablet (Lasix) 80 mg PO .COMPLEX edema #270 tabs 06/02/22 [Rx Last Taken Unknown] insulin degludec 200 unit/mL (3 mL) subcutaneous pen 120 unit subcut DAILY 06/02/22 [History Last Taken Unknown] isosorbide mononitrate 60 mg tablet,extended release 24 hr 60 mg PO BID 90 days #180 tabs 10/18/22 [Rx Last Taken Unknown] liraglutide 0.6 mg/0.1 mL (18 mg/3 mL) subcutaneous pen injector 1.8 mg subcut DAILY 06/02/22 [History Last Taken Unknown] metolazone 2.5 mg tablet 2.5 mg PO 2XW PRN edema #24 tabs 06/02/22 [Rx Last Taken Unknown] metoprolol succinate 200 mg tablet,extended release 24 hr 200 mg PO DAILY #90 tabs 06/02/22 [Rx Last Taken Unknown] multivitamin 1 tab PO DAILY 06/02/22 [History Last Taken Unknown] ranolazine 1,000 mg tablet,extended release,12 hr 1,000 mg PO Q12H #180 tabs 06/02/22 [Rx Last Taken Unknown] sacubitril 97 mg-valsartan 103 mg tablet (Entresto) 1 tab PO BID #180 tabs 06/02/22 [Rx Last Taken Unknown] spironolactone 25 mg tablet 25 mg PO DAILY #90 tabs 06/02/22 [Rx Last Taken Unknown] nitroglycerin 0.4 mg sublingual tablet (Nitrostat) 0.4 mg sublingual Q5-15M PRN Pain #100 tabs 06/03/22 [Rx Last Taken Unknown] apixaban 5 mg tablet (Eliquis) 5 mg PO BID Please change quantity for insurance to help cost #180 tabs 07/23/22 [Rx Last Taken Unknown] hydroxyzine pamoate 25 mg capsule 25 mg PO TID PRN PRN Anxiety #20 caps 10/13/22 [Rx Last Taken Unknown] Allergy/AdvReac Type Severity Reaction Status Date / Time Latex, Natural Rubber Allergy Mild Verified 10/12/22 18:31 torsemide AdvReac Mild Diarrhea Verified 10/12/22 18:31 Family History Mother CAD (coronary artery disease) Grandmother CAD (coronary artery disease) Surgical History H/O total hysterectomy History of arthroscopy of left knee History of left heart catheterization (LHC) (~10/18/18) History of total abdominal hysterectomy and bilateral salpingo-oophorectomy Social History number of children: 0 current occupational status: disabled Smoking Status: Never smoker second hand exposure: No alcohol intake: never substance use type: does not use caffeine: No what type of physical activity do you participate in: none seatbelt use: always do you feel safe at home: Yes additional social history: disability Assessment & Plan Assessment/Plan (1) Paroxysmal atrial fibrillation: (2) PVC (premature ventricular contraction): (3) Diastolic dysfunction: (4) Mitral valve disorder: (5) Hyperlipidemia: QUALIFIERS: Hyperlipidemia type: unspecified Qualified Code(s): E78.5 - Hyperlipidemia, unspecified Addt'l Comments Addendum: 10-21-2022 The patient was individually evaluated/examined. The patient presents for further evaluation and care of her underlying cardiac dysrhythmia with paroxysmal atrial fibrillation with initiation of antiarrhythmic therapy with flecainide/Tambocor. At the present time she does not complain of any acute cardiovascular symptoms suspicious for an acute coronary syndrome or acute CHF/pulmonary edema nor has she reported any episodes were she has had a documented compromising cardiac dysrhythmic events. She was brought into the hospital earlier this day. She has been placed on cardiac environmental monitoring specialist. She has initiated medical therapy with flecainide/Tambocor at the dose recommended by her adjunct writing instructor Dr. Wright from [facility]. Thus far she appears to have had no obvious adverse event. Her cardiac rhythm has remained sinus rhythm. On examination she appears to be awake and alert and in no acute distress. Her cardiovascular exam demonstrates at this time a regular rhythm with a normal S1 and S2. Her pulmonary examination demonstrates her lungs to be clear without obvious rales or rhonchi. Her abdomen demonstrates positive bowel sounds, soft, nontender. Her lower extremities demonstrate chronic bilateral lower extremity peripheral pitting edema. At the present time she will continue cardiac telemetry monitoring. She will continue with her medical management. This will include a minimum of 4 doses of her flecainide/Tambocor therapy. If following that she appears to be stable and she will be released home for continued outpatient cardiovascular follow-up. The patient's case was discussed and reviewed with the patient and with Jose Palomo CNP. This note was generated using a voice recognition system and there may be incorrect words, spelling or punctuation that were not noted when reviewing the office note prior to saving. Procedure Criteria Type of Procedure Procedure Type: Elective Elective Risks - COVID COVID Risk Discussion: The surgeon/proceduralist and patient have discussed in detail the risk of exposure to and/or potential harm posed by the COVID-19 virus with having a surgery/procedure at this time versus the risk of delaying the surgery/procedure. It is not possible to know either the risk of delaying the surgery or procedure or chance of getting an infection with perfect accuracy, but a joint decision was made between the patient and the surgeon/proceduralist to proceed at this time with the scheduled surgery/procedure as indicated on the consent form.
[2022-10-21 10:14] VITALS: BP 126/62; PULSE 78; RESP 16; TEMP 36.5; O2SAT 100
[2022-10-21] MEDS: Flecainide 100 MG Tablet 50 MG PO ×2 (10:50→22:09)
[2022-10-21] MEDS: Ranolazine 500 MG Tablet 1000 MG PO ×2 (10:51→22:09)
[2022-10-21] MEDS: Furosemide 100 MG/10 ML Vial 60 MG IV (10:51)
--- NOTE | 2022-10-21 12:14 | PCM.CONS.GEN ---
Assessment & Plan Assessment/Plan (1) Afib: PLAN: Plan 1. Paroxysmal A-fib Admitted by cardiology patient initiated on flecainide. Patient admitted to monitored bed as part of management ordered CBC BMP magnesium as well as phosphorus. 2. Diabetes mellitus type II -patient's oral hypoglycemics held. Placed on long acting insulin, Accu-Cheks a.c. and at bedtime and covered with sliding scale insulin 3. Chronic congestive heart failure with preserved ejection fraction 4. Mild intermittent asthma ? Discontinue patient bronchodilator treatment regimen 5. Hypothyroidism - Patient is on levothyroxine home dose continued. Ordered TSH. 6. Seizure disorder ? Did continue patient antiseizure medication 7. Valvular heart disease ? With history of mitral valve prolapse ? Followed by cardiology 8. Morbid obesity with BMI greater than 40 ? Weight loss advised 9. GERD ? Patient is on PPI continue 10. Allergic rhinitis ? Patient is on loratadine daily as well as Benadryl as needed continue 11. DVT prophylaxis ? Patient is on apixaban continue ? Time spent in the patient's overall evaluation,decision-making process, review of diagnostic data, adjustment of management, discussion with other providers, nursing nursing and ancillary staff involved in patient's care documentation, 77 Minutes HPI Consult Data Date of Consult: 10/21/22 HPI Narrative Reason for Consultation: Diabetes management HPI Narrative: RICHELLE HEREDIA, is a 57 F with past medical history significant for paroxysmal atrial fibrillation admitted by cardiology for initiation of flecainide therapy. Hospitalist service was consulted to assist with management admission medical comorbidities [facility] Medical History (Updated 10/21/22 @ 12:[address] Joey Watkins MD) Abnormal nuclear stress test Afib Albuminuria Allergic rhinitis Anemia Arthritis Asthma Atherosclerotic heart disease of [place] coronary artery without angina pectoris Cerebral atherosclerosis Chest pain Chronic migraine Chronic respiratory failure with hypoxia COPD (chronic obstructive pulmonary disease) Cystic fibrosis Depression Diabetes mellitus type 2, controlled Diastolic dysfunction SUH (dyspnea on exertion) Eczema Endometriosis Essential hypertension Fatty liver disease, nonalcoholic High cholesterol Hyperlipidemia Hypothyroidism Irritable bowel syndrome Lymphedema of both lower extremities Mitral valve disorder Nocturnal hypoxia Obesity Osteoarthritis Overweight PND (paroxysmal nocturnal dyspnea) Pulmonary nodule Renal calculus Tachycardia TIA (transient ischemic attack) Home Medications aspirin 81 mg tablet,delayed release 81 mg PO DAILY 07/26/16 [History Last Taken 09/27/19] levothyroxine 25 mcg tablet 25 mcg PO DAILY THYROID 09/15/18 [History Last Taken 09/27/19] divalproex 500 mg tablet,delayed release 1,000 mg PO BID SEIZURES 03/20/19 [History Last Taken 09/27/19] metformin 1,000 mg tablet 1,000 mg PO BID DM 09/27/19 [History Last Taken 09/26/19] levetiracetam 500 mg tablet (Keppra) 750 mg PO BID SEIZURES 06/12/20 [History Last Taken Unknown] buspirone 15 mg tablet 15 mg PO TID 07/15/20 [History Last Taken Unknown] glipizide 10 mg tablet 10 mg PO BID 07/15/20 [History Last Taken Unknown] linaclotide 145 mcg capsule (Linzess) 145 mcg PO DAILY 07/15/20 [History Last Taken Unknown] nystatin 100,000 unit/gram topical powder (Nystop) 1 applic topical BID #45 ea 08/06/20 [Rx Last Taken Unknown] omeprazole 20 mg tablet,delayed release 20 mg PO DAILY #90 tabs 10/18/20 [Rx Last Taken Unknown] diphenhydramine HCl 25 mg capsule (Allergy (diphenhydramine)) 25 mg PO TID PRN ALLERGIES 01/10/21 [History Last Taken Unknown] ergocalciferol (vitamin D2) 50 mcg (2,000 unit) capsule 50 mcg PO DAILY 01/10/21 [History Last Taken Unknown] fluticasone propionate 50 mcg/actuation nasal spray,suspension (Allergy Relief (fluticasone)) 2 spray intranasal DAILY 01/10/21 [History Last Taken Unknown] gabapentin 300 mg capsule 300 mg PO BID 01/10/21 [History Last Taken Unknown] galcanezumab-gnlm 120 mg/mL subcutaneous pen injector 120 mg subcut QMONTH 01/10/21 [History Last Taken Unknown] ketoconazole 2 % topical cream 1 applic topical DAILY 01/10/21 [History Last Taken Unknown] loperamide 2 mg tablet 2 mg PO Q6H PRN Diarrhea 01/10/21 [History Last Taken Unknown] ipratropium 0.5 mg-albuterol 3 mg (2.5 mg base)/3 mL nebulization soln 3 ml inhalation Q6H #180 mL 03/26/21 [Rx Last Taken Unknown] montelukast 10 mg tablet 10 mg PO QHS ALLERGIES #90 tabs 03/26/21 [Rx Last Taken Unknown] budesonide-formoterol HFA 160 mcg-4.5 mcg/actuation aerosol inhaler (Symbicort) 2 puff inhalation BID #3 ea 06/26/21 [Rx Last Taken Unknown] loratadine 10 mg tablet 10 mg PO DAILY #90 tabs 06/26/21 [Rx Last Taken Unknown] albuterol sulfate 90 mcg/actuation aerosol inhaler (ProAir HFA) 2 puff inhalation Q6H #8.5 grams 06/27/21 [Rx Last Taken Unknown] insulin aspart (niacinamide)(U-100) 100 unit/mL (3 mL) subcu cartridge (Fiasp Penfill U-100 Insulin) 40 unit subcut TID 10/27/21 [History Last Taken Unknown] mometasone-formoterol HFA 200 mcg-5 mcg/actuation aerosol inhaler (Dulera) 2 puff inhalation BID 10/27/21 [History Last Taken Unknown] valacyclovir 500 mg tablet 500 mg PO DAILY 10/27/21 [History Last Taken Unknown] amlodipine 5 mg tablet 5 mg PO BID BP #180 tabs 06/02/22 [Rx Last Taken Unknown] furosemide 80 mg tablet (Lasix) 80 mg PO .COMPLEX edema #270 tabs 06/02/22 [Rx Last Taken Unknown] insulin degludec 200 unit/mL (3 mL) subcutaneous pen 120 unit subcut DAILY 06/02/22 [History Last Taken Unknown] isosorbide mononitrate 60 mg tablet,extended release 24 hr 60 mg PO BID 90 days #180 tabs 06/02/22 [Rx Last Taken Unknown] liraglutide 0.6 mg/0.1 mL (18 mg/3 mL) subcutaneous pen injector 1.8 mg subcut DAILY 06/02/22 [History Last Taken Unknown] metolazone 2.5 mg tablet 2.5 mg PO 2XW PRN edema #24 tabs 06/02/22 [Rx Last Taken Unknown] metoprolol succinate 200 mg tablet,extended release 24 hr 200 mg PO DAILY #90 tabs 06/02/22 [Rx Last Taken Unknown] multivitamin 1 tab PO DAILY 06/02/22 [History Last Taken Unknown] ranolazine 1,000 mg tablet,extended release,12 hr 1,000 mg PO Q12H #180 tabs 06/02/22 [Rx Last Taken Unknown] sacubitril 97 mg-valsartan 103 mg tablet (Entresto) 1 tab PO BID #180 tabs 06/02/22 [Rx Last Taken Unknown] spironolactone 25 mg tablet 25 mg PO DAILY #90 tabs 06/02/22 [Rx Last Taken Unknown] nitroglycerin 0.4 mg sublingual tablet (Nitrostat) 0.4 mg sublingual Q5-15M PRN Pain #100 tabs 06/03/22 [Rx Last Taken Unknown] apixaban 5 mg tablet (Eliquis) 5 mg PO BID Please change quantity for insurance to help cost #180 tabs 07/23/22 [Rx Last Taken Unknown] hydroxyzine pamoate 25 mg capsule 25 mg PO TID PRN PRN Anxiety #20 caps 10/13/22 [Rx Last Taken Unknown] Allergy/AdvReac Type Severity Reaction Status Date / Time Latex, Natural Rubber Allergy Mild Verified 10/12/22 18:31 torsemide AdvReac Mild Diarrhea Verified 10/12/22 18:31 Family History Mother CAD (coronary artery disease) Grandmother CAD (coronary artery disease) Surgical History H/O total hysterectomy History of arthroscopy of left knee History of left heart catheterization (LHC) (~10/18/18) History of total abdominal hysterectomy and bilateral salpingo-oophorectomy Social History number of children: 0 current occupational status: disabled Smoking Status: Never smoker second hand exposure: No alcohol intake: never substance use type: does not use caffeine: No what type of physical activity do you participate in: none seatbelt use: always do you feel safe at home: Yes additional social history: disability ROS ROS Narrative GENERAL: denies fever, chills, night sweats, weight loss, anorexia HEENT: denies headache, sinus congestion, or drainage, dysphagia RESPIRATORY: denies cough, sputum production, shortness of breath, dyspnea on exertion CARDIAC: denies chest pain, palpitations, orthopnea, PND GASTROINTESTINAL: denies abdominal pain, nausea, vomiting, melena, GENITOURINARY: denies dysuria, urgency, frequency, heamaturia EXTREMITY: denies swelling MUSCULOSKELETAL: denies current joint pain or tenderness NEUROLOGIC: denies focal numbness, weakness, tingling HEMATOLOGIC: denies easy bruising and/or hemorrhage INTEGUMENT: denies rashes PSYCHIATRIC: denies suicidal or homicidal ideation Physical Exam Narrative GENERAL: cooperative HEENT: Atraumatic; normocephalic EYES; Anicteric, Normal Conjunctiva NECK; supple, normal thyroid, RESPIRATORY: Diminished to auscultation CARDIOVASCULAR: Regular S1 S2, GI: soft, normoactive bowel sounds, : No Renal angle tenderness; EXTREMITIES: No edema, no clubbing, MUSCULOSKELETAL: no muscle wasting NEURO: Awake; no lateralizing signs. SKIN: No Rash PSYCH; Flat affect Charges/Coding Visit Charges Inpatient E&M: 47923 Init Hosp L3
[2022-10-21 13:29] LABS: Absolute Lymphocyte Count 1.78 X10^3/uL (0.83-4.51); Absolute Neutrophil Count 2.4 X10^3/uL (2.0-7.7); Basophil# 0.03 X10^3/uL; Basophil% 0.6 % (0-1); Eosinophil# 0.82 X10^3/uL; Eosinophils% 15.1 % (0-5); Hematocrit 37.4 % (37-47); Hemoglobin 11.9 g/dL (12.0-15.0); Lymphocyte # 1.78 X10^3/ul (0.83-4.51); Lymphocyte % 32.7 % (19-41); Mean Corp Hgb Conc 31.8 g/dL (32-36); Mean Corpuscular Hgb 29.6 pg (27.0-32.0); Mean Platelet Vol. 11.4 fl (6.2-12.0); Monocyte# 0.39 X10^3/uL; Monocyte% 7.2 % (0-10); NRBC Flagged by Analyzer 0 % (0-5); Platelet Count 182 K/mm3 (150-450); RBC Distribution Width CV 14.3 % (11.6-14.6); RBC Distribution Width SD 48.9 fl (35.1-43.9); Red Blood Count 4.02 M/mm3 (4.2-5.4); White Blood Count 5.4 K/mm3 (4.4-11.0)
[2022-10-21 13:47] LABS: AST(SGOT) 10 U/L (15-37); Alanine Aminotransfer ALT/SGPT 24 U/L (13-56); Albumin, Serum 3.4 g/dL (3.2-5.0); Alkaline Phosphatase 58 U/L (45-117); Anion Gap 5 (5-15); BUN 28 mg/dL (7-18); BUN/Creat Ratio 26.7 RATIO (10-20); Calcium,Total 8.9 mg/dL (8.5-10.1); Chloride 102 mmol/L (98-107); Creatinine, Serum 1.05 mg/dL (0.55-1.02); EST Glomerular Filtration Rate 58 mL/min (>60); Est Glom Filt Rate - Afr Amer 70 mL/min (>60); Estimated Creatinine Clearance 175.78 ml/min; Globulin 3.5 g/dL (2.2-4.2); Glucose 218 mg/dL (74-106); Magnesium 2.2 mg/dL (1.6-2.6); Potassium 4.1 mmol/L (3.5-5.1); Protein, Total 6.9 g/dL (6.4-8.2); Sodium Level 138 mmol/L (136-145)
[2022-10-21 13:56] LABS: Phosphorus 3.4 mg/dL (2.5-4.9); Thyroid Stim Hormone (TSH) 1.07 uIU/mL (0.358-3.74)
[2022-10-21 14:07] VITALS: BP 115/63; PULSE 71; RESP 16; TEMP 36.4; O2SAT 100
[2022-10-21] MEDS: Insulin Lispro 100 UNIT/ML INSULN.PEN 40 UNIT SC ×2 (14:15→22:24)
[2022-10-21] MEDS: Insulin Lispro 100 UNIT/ML INSULN.PEN SC (14:15)
[2022-10-21] MEDS: Nystatin Powder 15gm Bottle 1 APPLIC TOPICAL ×2 (14:18→22:10)
[2022-10-21] MEDS: busPIRone 15 MG TABLET PO ×2 (14:18→22:09)
[2022-10-21 14:41] LABS: Bedside Glucose 220 mg/dL (74-106)
[2022-10-21] MEDS: Acetaminophen 325 MG Tablet 650 MG PO (19:57)
[2022-10-21] MEDS: 0.9% Saline Lock 10 ML Syringe IV ×3 (19:58→23:40)
[2022-10-21 20:01] VITALS: BP 130/65; PULSE 81; RESP 18; TEMP 36.6; O2SAT 98
[2022-10-21 20:08] VITALS: PULSE 82; RESP 18; O2SAT 98
[2022-10-21] MEDS: Budesonide Respules 0.5 MG/2 ML AMPUL.NEB. INHALATION (20:08)
[2022-10-21] MEDS: Ipratropium/Albuterol Sulfate 3 ML AMPUL.NEB INHALATION (20:08)
[2022-10-21] MEDS: Divalproex (ER) 500 MG Tablet 1000 MG PO (22:09)
[2022-10-21] MEDS: amLODIPine 5 MG Tablet PO (22:09)
[2022-10-21] MEDS: Isosorbide Mononitrate 60 MG Tablet PO (22:09)
[2022-10-21] MEDS: levETIRAcetam 500 MG Tablet 750 MG PO (22:09)
[2022-10-21] MEDS: APIXABAN 5 MG TABLET PO (22:09)
[2022-10-21] MEDS: Montelukast 10 MG Tablet PO (22:09)
[2022-10-21] MEDS: SACUBITRIL/VALSARTAN 97-103 MG TABLET 1 EACH PO (22:09)
[2022-10-21] MEDS: Gabapentin 300 MG Capsule PO (22:12)
[2022-10-21 23:05] LABS: Bedside Glucose 140 mg/dL (74-106)
[2022-10-21] MEDS: hydrOXYzine PAM 25 MG Capsule PO (23:40)
[2022-10-21] MEDS: Ondansetron 4 MG/2 ML Vial IV (23:40)
[2022-10-21 23:46] VITALS: BP 109/58; PULSE 70; RESP 17; TEMP 36.5; O2SAT 97
[2022-10-22] VITALS (7 sets, daily range): BP systolic 109–120; BP diastolic 66–73; PULSE 73–80; RESP 16–18; TEMP 36.4–36.7; O2SAT 98–100
[2022-10-22 00:11] LABS: Bedside Glucose 147 mg/dL (74-106)
[2022-10-22] MEDS: Ipratropium/Albuterol Sulfate 3 ML AMPUL.NEB INHALATION ×3 (01:48→20:05)
[2022-10-22 05:28] LABS: Hemoglobin 10.9 g/dL (12.0-15.0); Mean Corp Hgb Conc 32.1 g/dL (32-36); Mean Corpuscular Hgb 29.9 pg (27.0-32.0); Mean Corpuscular Volume 93.2 fL (81-99); Mean Platelet Vol. 11.5 fl (6.2-12.0); Platelet Count 171 K/mm3 (150-450); RBC Distribution Width CV 14.4 % (11.6-14.6); RBC Distribution Width SD 49.2 fl (35.1-43.9); Red Blood Count 3.65 M/mm3 (4.2-5.4); White Blood Count 5.9 K/mm3 (4.4-11.0)
[2022-10-22] MEDS: busPIRone 15 MG TABLET PO ×3 (05:36→20:06)
[2022-10-22] MEDS: Levothyroxine 25 MCG TABLET PO (05:36)
[2022-10-22] MEDS: Nystatin Powder 15gm Bottle 1 APPLIC TOPICAL ×3 (05:36→20:13)
[2022-10-22] MEDS: Acetaminophen 325 MG Tablet 650 MG PO ×2 (05:52→19:55)
[2022-10-22 05:56] LABS: Anion Gap 10 (5-15); BUN 34 mg/dL (7-18); BUN/Creat Ratio 27.4 RATIO (10-20); Calcium,Total 8.6 mg/dL (8.5-10.1); Chloride 102 mmol/L (98-107); Creatinine, Serum 1.24 mg/dL (0.55-1.02); EST Glomerular Filtration Rate 48 mL/min (>60); Est Glom Filt Rate - Afr Amer 58 mL/min (>60); Estimated Creatinine Clearance 47.99 ml/min; Glucose 110 mg/dL (74-106); Potassium 4.1 mmol/L (3.5-5.1); Sodium Level 138 mmol/L (136-145)
[2022-10-22] MEDS: Budesonide Respules 0.5 MG/2 ML AMPUL.NEB. INHALATION ×2 (06:11→20:05)
[2022-10-22] MEDS: Insulin Lispro 100 UNIT/ML INSULN.PEN 40 UNIT SC ×3 (08:10→17:51)
[2022-10-22] MEDS: Insulin Lispro 100 UNIT/ML INSULN.PEN SC ×3 (08:11→17:51)
--- NOTE | 2022-10-22 08:11 | PCM.PN.HOSP ---
Reason for Visit Reason for Visit: Diagnoses Hyperlipidemia, unspecified (10/21/22) Rheumatic mitral valve disease, unspecified (10/21/22) Paroxysmal atrial fibrillation (10/21/22) Unspecified atrial fibrillation (10/21/22) Ventricular premature depolarization (10/21/22) Other ill-defined heart diseases (10/21/22) Subjective Subjective Patient was admitted for initiation of flecainide. Did review EKG this morning QTc is is at 458 no change from admission. Objective Data Objective Data Vital Signs: Vital Signs Temp Pulse Resp BP Pulse Ox O2 Del Method O2 Flow Rate 97.7 F L 73 18 115/73 100 Nasal Cannula 2 10/22/22 05:39 10/22/22 06:11 10/22/22 06:11 10/22/22 05:39 10/22/22 05:39 10/22/22 06:14 10/22/22 06:14 Oxygen Flow Rate (L/min) 2 Oxygen Delivery Method Nasal Cannula Weight: 183.932 kg Body Mass Index (BMI) 0.6 Lab / Micro Data Result Diagrams: 10/22/22 05:09 10/22/22 05:09 Labs: Laboratory Results - last 24 hr 10/21/22 13:13: WBC 5.4, RBC 4.02 L, Hgb 11.9 L, Hct 37.4, MCV 93.0, MCH 29.6, MCHC 31.8 L, RDW Std Deviation 48.9 H, RDW Coeff of Juan Francisco 14.3, Plt Count 182, MPV 11.4, Immature Gran % (Auto) 0.400, Neut % (Auto) 44.0 L, Lymph % (Auto) 32.7, [place] % (Auto) 7.2, Eos % (Auto) 15.1 H, Baso % (Auto) 0.6, Absolute Neuts (auto) 2.4, Absolute Lymphs (auto) 1.78, Nucleated RBC % 0 10/21/22 13:13: Sodium 138, Potassium 4.1, Chloride 102, Carbon Dioxide 31.0, Anion Gap 5, BUN 28 H, Creatinine 1.05 H, Estim Creat Clear Calc 175.78, Est GFR (MDRD) Af Amer 70, Est GFR (MDRD) Non-Af 58 L, BUN/Creatinine Ratio 26.7 H, Glucose 218 H, Calcium 8.9, Magnesium 2.2, Total Bilirubin 0.50, AST 10 L, ALT 24, Alkaline Phosphatase 58, Total Protein 6.9, Albumin 3.4, Globulin 3.5, Albumin/Globulin Ratio 1.0 10/21/22 13:13: Phosphorus 3.4, TSH 1.07 10/21/22 14:14: POC Glucose 220 H 10/21/22 22:21: POC Glucose 140 H 10/21/22 23:39: POC Glucose 147 H 10/22/22 05:09: WBC 5.9, RBC 3.65 L, Hgb 10.9 L, Hct 34.0 L, MCV 93.2, MCH 29.9, MCHC 32.1, RDW Std Deviation 49.2 H, RDW Coeff of [place] 14.4, Plt Count 171, MPV 11.5 10/22/22 05:09: Sodium 138, Potassium 4.1, Chloride 102, Carbon Dioxide 26.0, Anion Gap 10, BUN 34 H, Creatinine 1.24 H, Estim Creat Clear Calc 47.99, Est GFR (MDRD) Af Amer 58 L, Est GFR (MDRD) Non-Af 48 L, BUN/Creatinine Ratio 27.4 H, Glucose 110 H, Calcium 8.6 Physical Exam Narrative GENERAL: cooperative HEENT: Atraumatic; normocephalic EYES; Anicteric, Normal Conjunctiva NECK; supple, normal thyroid, RESPIRATORY: Diminished to auscultation CARDIOVASCULAR: Regular S1 S2, GI: soft, normoactive bowel sounds, : No Renal angle tenderness; EXTREMITIES: No edema, no clubbing, MUSCULOSKELETAL: no muscle wasting NEURO: Awake; no lateralizing signs. SKIN: No Rash PSYCH; Flat affect Assessment & Plan Assessment/Plan (1) Afib: PLAN: Plan 1. Paroxysmal A-fib Admitted by cardiology patient initiated on flecainide. Patient admitted to monitored bed as part of management ordered CBC BMP magnesium as well as phosphorus. ? 10/22/2022;Patient was admitted for initiation of flecainide. Did review EKG this morning QTc is is at 458 no change from admission. 2. Diabetes mellitus type II -patient's oral hypoglycemics held. Placed on long acting insulin, Accu-Cheks a.c. and at bedtime and covered with sliding scale insulin 3. Chronic congestive heart failure with preserved ejection fraction 4. Mild intermittent asthma ? Discontinue patient bronchodilator treatment regimen 5. Hypothyroidism - Patient is on levothyroxine home dose continued. Ordered TSH. 6. Seizure disorder ? Did continue patient antiseizure medication 7. Valvular heart disease ? With history of mitral valve prolapse ? Followed by cardiology 8. Morbid obesity with BMI greater than 40 ? Weight loss advised 9. GERD ? Patient is on PPI continue 10. Allergic rhinitis ? Patient is on loratadine daily as well as Benadryl as needed continue 11. DVT prophylaxis ? Patient is on apixaban continue ? Time spent in the patient's overall evaluation,decision-making process, review of diagnostic data, adjustment of management, discussion with other providers, nursing nursing and ancillary staff involved in patient's care documentation, 37 Minutes Charges/Coding Visit Charges Inpatient E&M: 84982 Subs Hosp L2
[2022-10-22 09:20] LABS: Bedside Glucose 151 mg/dL (74-106)
[2022-10-22] MEDS: Menthol/Lanolin/Calamine/Znox 113 GM Tube 1 APPLIC TOPICAL ×2 (09:41→20:07)
[2022-10-22] MEDS: Aspirin E.C. 81 MG Tablet PO (09:42)
[2022-10-22] MEDS: Cholecalciferol (VIT D3) 25 MCG TABLET (1,000 UNITS) 50 MCG PO (09:43)
[2022-10-22] MEDS: SACUBITRIL/VALSARTAN 97-103 MG TABLET 1 EACH PO ×2 (09:43→20:08)
[2022-10-22] MEDS: Loratadine 10 MG Tablet PO (09:43)
[2022-10-22] MEDS: Flecainide 100 MG Tablet 50 MG PO ×2 (09:43→20:11)
[2022-10-22] MEDS: Ranolazine 500 MG Tablet 1000 MG PO ×2 (09:43→20:12)
[2022-10-22] MEDS: Isosorbide Mononitrate 60 MG Tablet PO ×2 (09:44→20:09)
[2022-10-22] MEDS: levETIRAcetam 500 MG Tablet 750 MG PO ×2 (09:44→20:09)
[2022-10-22] MEDS: Metoprolol(XL)Succ 200 MG Tablet PO (09:44)
[2022-10-22] MEDS: Acyclovir 200 MG Capsule 400 MG PO ×2 (09:44→20:11)
[2022-10-22] MEDS: Pantoprazole Sodium 20 MG Tablet PO (09:46)
[2022-10-22] MEDS: Divalproex (ER) 500 MG Tablet 1000 MG PO ×2 (09:46→20:07)
[2022-10-22] MEDS: APIXABAN 5 MG TABLET PO ×2 (09:47→20:08)
[2022-10-22] MEDS: Fluticasone 0.05% 1 SPRAY NASAL.SRY 2 SPRAY NASAL (09:47)
[2022-10-22] MEDS: Furosemide 100 MG/10 ML Vial 60 MG IV (09:47)
[2022-10-22] MEDS: amLODIPine 5 MG Tablet PO ×2 (09:48→20:11)
[2022-10-22] MEDS: 0.9% Saline Lock 10 ML Syringe IV (09:48)
[2022-10-22] MEDS: Gabapentin 300 MG Capsule PO ×2 (09:52→20:17)
[2022-10-22] MEDS: Insulin Glargine-YFGN 100 UNIT/ML Pen 120 UNIT SC (11:37)
[2022-10-22 12:16] LABS: Bedside Glucose 210 mg/dL (74-106)
--- NOTE | 2022-10-22 14:15 | CASEMGMT ---
Addendum entered by Neeta Mckeon 10/22/22 15:30: [facility] is affiliated with [facility]. NGOZI SUBRAMANIAN called [facility] to verify oxygen 2lpm continuous. Original Note: NGOZI SUBRAMANIAN Face to Face with patient for initial transition planning/care coordination assessment. NGOZI SUBRAMANIAN introduced self and role at [facility]. Patient lying in bed, alert and oriented. Patient willing to participate in assessment and is able to answer all questions appropriately. Care providers, pharmacy, and demographics verified. Patient wishes to discharge home, denies need for home health at this time. Patient states she has no further needs or concerns at this time. CM to follow for discharge planning needs that may arise. PCP: Jean Specialists: [place], bark grinder; Shankar Landa, day haul or farm charter bus driver; Preferred Pharmacy: [facility] Insurance: [facility] Prescription Benefit: yes Living Will/HPOA: yes, father Carlos Baeza LNOK: father Living Arrangements: Patient lives with father in a bilevel home with 5-7 steps and railing. Patient states she is independent and able to ambulate stairs slowly at home. Transportation: father DME/HHC: Patient has walker, shower chair, medical alert, pulse ox, glucometer, POC, and home oxygen through [employer] at 2lpm. No previous HHC or SNF. Patient inquired about aides. NGOZI SUBRAMANIAN provided patient with list of private duty aides. Disposition Plan: Patient to discharge home with family support and follow-up plans in place. Neeta GOLDMAN, RN, CM
[2022-10-22] MEDS: Ondansetron 4 MG/2 ML Vial IV (17:51)
[2022-10-22 18:05] LABS: Bedside Glucose 178 mg/dL (74-106)
--- NOTE | 2022-10-22 19:05 | PN.CARD_ITS ---
Subjective Subjective The patient is awake and alert. She has no new acute cardiovascular complaints. Objective Data Vital Signs: Vital Signs Temp Pulse Resp BP Pulse Ox O2 Del Method O2 Flow Rate 97.5 F L 76 16 109/66 98 Nasal Cannula 2 10/22/22 12:30 10/22/22 12:30 10/22/22 12:30 10/22/22 12:30 10/22/22 12:30 10/22/22 14:00 10/22/22 14:00 Oxygen Flow Rate (L/min) 2 Oxygen Delivery Method Nasal Cannula Weight: 405 lb 8.01 oz Body Mass Index (BMI) 0.6 Intake & Output: Intake and Output for Last 24 Hours 10/20/22 10/21/22 10/22/22 23:59 23:59 23:59 Intake Total 840 / 840 Output Total 1200 / 1200 Balance -360 / -360 Lab / Micro Data Result Diagrams: 10/22/22 05:09 10/22/22 05:09 Labs: Laboratory Results - last 24 hr 10/21/22 22:21: POC Glucose 140 H 10/21/22 23:39: POC Glucose 147 H 10/22/22 05:09: WBC 5.9, RBC 3.65 L, Hgb 10.9 L, Hct 34.0 L, MCV 93.2, MCH 29.9, MCHC 32.1, RDW Std Deviation 49.2 H, RDW Coeff of [place] 14.4, Plt Count 171, MPV 11.5 10/22/22 05:09: Sodium 138, Potassium 4.1, Chloride 102, Carbon Dioxide 26.0, Anion Gap 10, BUN 34 H, Creatinine 1.24 H, Estim Creat Clear Calc 47.99, Est GFR (MDRD) Af Amer 58 L, Est GFR (MDRD) Non-Af 48 L, BUN/Creatinine Ratio 27.4 H, Glucose 110 H, Calcium 8.6 10/22/22 08:07: POC Glucose 151 H 10/22/22 11:35: POC Glucose 210 H 10/22/22 17:46: POC Glucose 178 H Cardiology Labs/Tests 10/22/22 05:09: WBC 5.9, RBC 3.65 L, Hgb 10.9 L, Hct 34.0 L, MCV 93.2, MCH 29.9, MCHC 32.1, Plt Count 171, MPV 11.5 10/22/22 05:09: Sodium 138, Potassium 4.1, Chloride 102, Carbon Dioxide 26.0, Anion Gap 10, BUN 34 H, Creatinine 1.24 H, Est GFR (MDRD) Af Amer 58 L, Est GFR (MDRD) Non-Af 48 L, BUN/Creatinine Ratio 27.4 H, Glucose 110 H, Calcium 8.6 Rhythm: Sinus rhythm,: Occasional PVC EKG: Minus rhythm; low voltage QRS; no acute electrocardiographic changes Physical Exam Const alert, oriented x3 and no apparent distress Orientation / Consciousness: awake HEENT normocephalic, head/scalp atraumatic and hearing grossly normal bilaterally Eyes PERRL, EOMs intact bilaterally, conjunctivae normal and no scleral icterus Neck full ROM, supple and no JVD Carotids: normal carotid upstroke Resp normal respiratory effort and clear to auscultation bilaterally Cardio regular rate, regular rhythm, S1 normal heart sound and S2 normal heart sound Palpation: other Rhythm: other Heart Sounds: other GI normal to inspection, nondistended, normoactive bowel sounds Extremity General Extremity: edema bilateral lower extremity Details: moderate Psych mental status grossly normal Assessment & Plan Assessment/Plan (1) Paroxysmal atrial fibrillation: PLAN: The patient has been initiated on antiarrhythmic therapy with flecainide. The dose is 50 mg p.o. twice daily. Thus far she appears to be tolerating it well. Thus far there is been no obvious adverse cardiac dysrhythmias or electrocardiographic changes. She will continue her medical therapy and be reassessed tomorrow. If she is stable then consideration will be given to discharge home for continued outpatient follow-up. (2) PVC (premature ventricular contraction): PLAN: The patient continues with occasional PVCs. She continues to be monitored at this time as she goes through her antiarrhythmic initiation. (3) Diastolic dysfunction: PLAN: The patient has been told in the past that she has had evidence of decreased diastolic compliance which could lead to diastolic mediated CHF or hea rt failure with preserved ejection fraction. At the present time she appears to be without any acute changes. She will continue medical management does include diuretic therapy currently with IV furosemide and eventual change to oral furosemide. (4) Mitral valve disorder: PLAN: Her most recent echocardiogram in February 2020 showed ejection fraction 65% trivial mitral valve insufficiency. This appears stable. This will be monitored over time by echocardiographic studies. (5) Hyperlipidemia: QUALIFIERS: Hyperlipidemia type: unspecified Qualified Code(s): E78.5 - Hyperlipidemia, unspecified PLAN: She will continue risk factor and lifestyle modification. Addt'l Comments The above was discussed and reviewed with the patient. She was agreeable to this approach. Comment: Time spent the patient's overall evaluation, examination, review of medical records, documentation, and extensive discussion,: 37 minutes. Procedure Criteria Type of Procedure Procedure Type: Elective Elective Risks - COVID COVID Risk Discussion: The surgeon/proceduralist and patient have discussed in detail the risk of exposure to and/or potential harm posed by the COVID-19 virus with having a surgery/procedure at this time versus the risk of delaying the surgery/procedure. It is not possible to know either the risk of delaying the surgery or procedure or chance of getting an infection with perfect accuracy, but a joint decision was made between the patient and the surgeon/proceduralist to proceed at this time with the scheduled surgery/procedure as indicated on the consent form.
[2022-10-22] MEDS: Montelukast 10 MG Tablet PO (20:10)
[2022-10-22] MEDS: hydrOXYzine PAM 25 MG Capsule PO (20:17)
[2022-10-22 22:25] LABS: Bedside Glucose 132 mg/dL (74-106)
[2022-10-23] MEDS: Levothyroxine 25 MCG TABLET PO (05:44)
[2022-10-23] MEDS: hydrOXYzine PAM 25 MG Capsule PO (05:44)
[2022-10-23] MEDS: 0.9% Saline Lock 10 ML Syringe IV ×2 (05:44→10:32)
[2022-10-23] MEDS: Ondansetron 4 MG/2 ML Vial IV (05:44)
[2022-10-23] MEDS: Acetaminophen 325 MG Tablet 650 MG PO (05:44)
[2022-10-23] MEDS: Nystatin Powder 15gm Bottle 1 APPLIC TOPICAL (05:45)
[2022-10-23] MEDS: busPIRone 15 MG TABLET PO ×2 (05:46→13:52)
[2022-10-23] MEDS: Petrolatum 33% Tube 1 APPLIC TOPICAL ×2 (05:46→10:21)
[2022-10-23 06:18] VITALS: BP 114/75; PULSE 78; RESP 18; TEMP 36.3; O2SAT 100
--- NOTE | 2022-10-23 06:25 | NURSING ---
pt up to bsc having anxiety, vs wnl, reassurance given. ordered ekg completed and no changes. no changes on tele. pt states she has anxiety attacks sometimes and asked for her vistaril and nitro. pt also complained of lorenzo. pt did some deep breathing and talked with this rn. pt took anxiety med and tyl along with her am meds and then decided she didnt want the nitro because it might make her lorenzo worse. pt brushed her teeth and then returned to bed. rn finished am care with pt and she stated she was feeling better and would take another nap before breakfast. denies further needs.
[2022-10-23 06:30] LABS: Hematocrit 36.8 % (37-47); Hemoglobin 11.8 g/dL (12.0-15.0); Mean Corp Hgb Conc 32.1 g/dL (32-36); Mean Corpuscular Hgb 30.2 pg (27.0-32.0); Mean Corpuscular Volume 94.1 fL (81-99); Mean Platelet Vol. 11.3 fl (6.2-12.0); Platelet Count 193 K/mm3 (150-450); RBC Distribution Width CV 14.1 % (11.6-14.6); RBC Distribution Width SD 48.4 fl (35.1-43.9); Red Blood Count 3.91 M/mm3 (4.2-5.4); White Blood Count 4.8 K/mm3 (4.4-11.0)
[2022-10-23 06:51] LABS: Anion Gap 8 (5-15); BUN 38 mg/dL (7-18); BUN/Creat Ratio 24.4 RATIO (10-20); Calcium,Total 8.6 mg/dL (8.5-10.1); Chloride 99 mmol/L (98-107); Creatinine, Serum 1.56 mg/dL (0.55-1.02); EST Glomerular Filtration Rate 37 mL/min (>60); Est Glom Filt Rate - Afr Amer 44 mL/min (>60); Estimated Creatinine Clearance 38.14 ml/min; Glucose 122 mg/dL (74-106); Potassium 4.6 mmol/L (3.5-5.1); Sodium Level 136 mmol/L (136-145)
[2022-10-23] MEDS: Budesonide Respules 0.5 MG/2 ML AMPUL.NEB. INHALATION (07:35)
[2022-10-23] MEDS: Ipratropium/Albuterol Sulfate 3 ML AMPUL.NEB INHALATION (07:35)
--- NOTE | 2022-10-23 08:20 | PN.HOSP_ITS ---
Reason for Visit Reason for Visit: Diagnoses Hyperlipidemia, unspecified (10/21/22) Rheumatic mitral valve disease, unspecified (10/21/22) Paroxysmal atrial fibrillation (10/21/22) Unspecified atrial fibrillation (10/21/22) Ventricular premature depolarization (10/21/22) Other ill-defined heart diseases (10/21/22) Subjective Subjective Patient seen had a relatively uneventful night. QTc 451. Objective Data Objective Data Vital Signs: Vital Signs Temp Pulse Resp BP Pulse Ox O2 Del Method O2 Flow Rate 97.4 F L 78 18 114/75 100 Nasal Cannula 2 10/23/22 06:18 10/23/22 06:18 10/23/22 06:18 10/23/22 06:18 10/23/22 06:18 10/23/22 06:18 10/23/22 06:18 Oxygen Flow Rate (L/min) 2 Oxygen Delivery Method Nasal Cannula Weight: 183.932 kg Body Mass Index (BMI) 0.6 Intake & Output: Intake and Output for Last 24 Hours 10/21/22 10/22/22 10/23/22 23:59 23:59 23:59 Intake Total 840 / 840 Output Total 1200 / 1200 Balance -360 / -360 Lab / Micro Data Result Diagrams: 10/23/22 06:19 10/23/22 06:19 Labs: Laboratory Results - last 24 hr 10/22/22 08:07: POC Glucose 151 H 10/22/22 11:35: POC Glucose 210 H 10/22/22 17:46: POC Glucose 178 H 10/22/22 19:58: POC Glucose 132 H 10/23/22 06:19: WBC 4.8, RBC 3.91 L, Hgb 11.8 L, Hct 36.8 L, MCV 94.1, MCH 30.2, MCHC 32.1, RDW Std Deviation 48.4 H, RDW Coeff of Juan Francisco 14.1, Plt Count 193, MPV 11.3 10/23/22 06:19: Sodium 136, Potassium 4.6, Chloride 99, Carbon Dioxide 29.0, An ion Gap 8, BUN 38 H, Creatinine 1.56 H, Estim Creat Clear Calc 38.14, Est GFR (MDRD) Af Amer 44 L, Est GFR (MDRD) Non-Af 37 L, BUN/Creatinine Ratio 24.4 H, Glucose 122 H, Calcium 8.6 Physical Exam Narrative GENERAL: cooperative HEENT: Atraumatic; normocephalic EYES; Anicteric, Normal Conjunctiva NECK; supple, normal thyroid, RESPIRATORY: Diminished to auscultation CARDIOVASCULAR: Regular S1 S2, GI: soft, normoactive bowel sounds, : No Renal angle tenderness; EXTREMITIES: No edema, no clubbing, MUSCULOSKELETAL: no muscle wasting NEURO: Awake; no lateralizing signs. SKIN: No Rash PSYCH; Flat affect Assessment & Plan Assessment/Plan (1) Afib: PLAN: Plan 1. Paroxysmal A-fib Admitted by cardiology patient initiated on flecainide. Patient admitted to monitored bed as part of management ordered CBC BMP magnesium as well as phosphorus. ? 10/22/2022;Patient was admitted for initiation of flecainide. Did review EKG this morning QTc is is at 458 no change from admission. 10/23/2022 QTc 451. 2. Diabetes mellitus type II -patient's oral hypoglycemics held. Placed on long acting insulin, Accu-Cheks a.c. and at bedtime and covered with sliding scale insulin 3. Chronic congestive heart failure with preserved ejection fraction 4. Mild intermittent asthma ? Discontinue patient bronchodilator treatment regimen 5. Hypothyroidism - Patient is on levothyroxine home dose continued. Ordered TSH. 6. Seizure disorder ? Did continue patient antiseizure medication 7. Valvular heart disease ? With history of mitral valve prolapse ? Followed by cardiology 8. Morbid obesity with BMI greater than 40 ? Weight loss advised 9. GERD ? Patient is on PPI continue 10. Allergic rhinitis ? Patient is on loratadine daily as well as Benadryl as needed continue 11. DVT prophylaxis ? Patient is on apixaban continue ? Time spent in the patient's overall evaluation,decision-making process, review of diagnostic data, adjustment of management, discussion with other providers, nursing nursing and ancillary staff involved in patient's care documentation, 37 Minutes Charges/Coding Visit Charges Inpatient E&M: 59048 Subs Hosp L2
[2022-10-23 08:35] LABS: Bedside Glucose 114 mg/dL (74-106)
[2022-10-23] MEDS: Insulin Lispro 100 UNIT/ML INSULN.PEN 40 UNIT SC ×2 (09:15→12:43)
--- NOTE | 2022-10-23 09:48 | PCM.DC ---
Discharge Instructions Diet Discharge Diet: Low fat / Low cholesterol and 1800 Calorie Control Diet Activity Discharge Activity: Return to Normal Activity Dressing / Incision Call your doctor if you observe: Fainting spells and Increased palpitations (irregular heartbeat) Follow Up Care Please Follow Up With: Jose Palomo MANAGER SCIENCE, MANAGER SCIENCE-C When: [facility] to arrange follow up appointment Test Results: Test results from this visit will be discussed in further detail at your follow-up appointment, if applicable. Discharge Plan Admission Admit Date/Time: 10/21/22 09:45 Primary Reason for Your Visit: Antiarrhythmic Initiation Attending Provider: Jonny Villagomez Primary Care Provider: Sanjana Chun Consulting Providers: Maria Isabel Gannon ; Maria Isabel Frankel ; Christiana Spears ; Erma Hurtado ; Joey Watkins ; Manas Pavon ; Gabo Ybarra ; Uriah Zamarripa ; Damian Villavicencio ; Ge Curtis ; Alvarez Oates ; Laverne Lema ; Carlos Mancia ; Bre Martin ; Andrea Chacko ; Jose López ; Jonny Fontenot ; Gloria Dutta ; Ti Dunn ; Allie Meng MANAGER SCIENCE Discharge Orders/Prescriptions Prescriptions: New flecainide 100 mg Tablet 50 mg PO BID Qty: 180 3RF Continued diphenhydramine HCl [Allergy (diphenhydramine)] 25 mg capsule 25 mg PO TID PRN (Reason: ALLERGIES) levetiracetam [Keppra] 500 mg tablet 750 mg PO BID nystatin [Nystop] 100,000 unit/gram powder 1 applic TOPICAL BID Qty: 45 7RF glipizide 10 mg tablet 10 mg PO BID Linzess 145 mcg capsule 145 mcg PO DAILY ketoconazole 2 % cream 1 applic TOPICAL DAILY Fiasp Penfill U-100 Insulin 100 unit/mL (3 mL) cartridge 40 unit SC TID liraglutide 0.6 mg/0.1 mL (18 mg/3 mL) pen injector 1.8 mg SC DAILY montelukast 10 mg tablet 10 mg PO QHS Qty: 90 3RF ipratropium-albuterol 0.5 mg-3 mg(2.5 mg base)/3 mL solution for nebulization 3 ml INHALATION Q6H Qty: 180 3RF galcanezumab-gnlm 120 mg/mL pen injector 120 mg subcut QMONTH Label Comments: INJECT 120 MG INTO THE SKIN EVERY 30 DAYS. fluticasone propionate [Allergy Relief (fluticasone)] 50 mcg/actuation spray,suspension 2 spray intranasal DAILY Rx Instructions: administer into each nostril gabapentin 300 mg capsule 300 mg PO BID loperamide 2 mg tablet 2 mg PO Q6H PRN (Reason: Diarrhea) ergocalciferol (vitamin D2) 50 mcg (2,000 unit) capsule 50 mcg PO DAILY insulin degludec 200 unit/mL (3 mL) insulin pen 120 unit subcut DAILY Dulera 200-5 mcg/actuation HFA aerosol inhaler 2 puff inhalation BID valacyclovir 500 mg tablet 500 mg PO DAILY loratadine 10 mg tablet 10 mg PO DAILY Qty: 90 4RF budesonide-formoterol [Symbicort] 160-4.5 mcg/actuation HFA aerosol inhaler 2 puff INHALATION BID Qty: 3 4RF Rx Instructions: J44.9 - COPD administer with spacer, rinse mouth after each use albuterol sulfate [ProAir HFA] 90 mcg/actuation HFA aerosol inhaler 2 puff INHALATION Q6H Qty: 8.5 3RF amlodipine 5 mg tablet 5 mg PO BID Qty: 180 4RF furosemide [Lasix] 80 mg tablet 80 mg PO .COMPLEX Qty: 270 4RF Rx Instructions: 80 mg PO take 80mg in the am and 40mg in the afternoon; isosorbide mononitrate 60 mg tablet extended release 24 hr 60 mg PO BID 90 Days Qty: 180 3RF metolazone 2.5 mg tablet 2.5 mg PO 2XW PRN (Reason: edema) Qty: 24 4RF metoprolol succinate 200 mg tablet extended release 24 hr 200 mg PO DAILY Qty: 90 4RF ranolazine 1,000 mg tablet extended release 12 hr 1,000 mg PO Q12H Qty: 180 4RF Entresto 97-103 mg tablet 1 tab PO BID Qty: 180 4RF spironolactone 25 mg tablet 25 mg PO DAILY Qty: 90 4RF aspirin 81 MG tablet 81 mg PO DAILY levothyroxine 25 mcg tablet 25 mcg PO DAILY multivitamin Tablet 1 tab PO DAILY metformin 1,000 MG tablet 1,000 mg PO BID buspirone 15 mg tablet 15 mg PO TID hydroxyzine pamoate 25 mg capsule 25 mg PO TID PRN PRN (Reason: Anxiety) Qty: 20 0RF divalproex 500 mg tablet,delayed release (DR/EC) 1,000 mg PO BID omeprazole 20 mg tablet,delayed release (DR/EC) 20 mg PO DAILY Qty: 90 3RF nitroglycerin [Nitrostat] 0.4 mg tablet, sublingual 0.4 mg SUBLINGUAL Q5-15M PRN (Reason: Pain) Qty: 100 3RF Eliquis 5 mg tablet 5 mg PO BID Qty: 180 3RF Referrals / Follow Up: Sanjana Chun MD [Primary Care Provider] - Jonny Villagomez MD [Med Staff - Active Staff] - Disposition Disposition (needs filled in before D/C Order can be placed): Home, Self Care
--- NOTE | 2022-10-23 09:59 | DS.PCM_ITS ---
Providers Date of Admission: 10/21/22 Date of Discharge: 10/23/22 Primary Care Physician: Dr. Sanjana Chun MD Consultations 10/21/22 08:48 Consult: Hospitalist Routine Consulting Provider: [facility] Reason for Consult: Non-cardiac care EMERGENT Consult: No MD Notified: Yes Date Notified: 10/21/22 Time Notified: 09:41 Method of Notification: Text Reason For Visit: ANTIARRHYTHMIC MEDICATION INITIATION Diagnosis Discharge Diagnosis (1) Afib: Status: Acute Code(s): I48.91 - Unspecified atrial fibrillation Medications at Discharge Home Medications aspirin 81 mg tablet,delayed release 81 mg PO DAILY 07/26/16 levothyroxine 25 mcg tablet 25 mcg PO DAILY THYROID 09/15/18 divalproex 500 mg tablet,delayed release 1,000 mg PO BID SEIZURES 03/20/19 metformin 1,000 mg tablet 1,000 mg PO BID DM 09/27/19 levetiracetam 500 mg tablet (Keppra) 750 mg PO BID SEIZURES 06/12/20 buspirone 15 mg tablet 15 mg PO TID 07/15/20 glipizide 10 mg tablet 10 mg PO BID 07/15/20 linaclotide 145 mcg capsule (Linzess) 145 mcg PO DAILY 07/15/20 nystatin 100,000 unit/gram topical powder (Nystop) 1 applic topical BID #45 ea 08/06/20 omeprazole 20 mg tablet,delayed release 20 mg PO DAILY #90 tabs 10/18/20 diphenhydramine HCl 25 mg capsule (Allergy (diphenhydramine)) 25 mg PO TID PRN ALLERGIES 01/10/21 ergocalciferol (vitamin D2) 50 mcg (2,000 unit) capsule 50 mcg PO DAILY 01/10/21 fluticasone propionate 50 mcg/actuation nasal spray,suspension (Allergy Relief (fluticasone)) 2 spray intranasal DAILY 01/10/21 gabapentin 300 mg capsule 300 mg PO BID 01/10/21 galcanezumab-gnlm 120 mg/mL subcutaneous pen injector 120 mg subcut QMONTH 01/10/21 ketoconazole 2 % topical cream 1 applic topical DAILY 01/10/21 loperamide 2 mg tablet 2 mg PO Q6H PRN Diarrhea 01/10/21 ipratropium 0.5 mg-albuterol 3 mg (2.5 mg base)/3 mL nebulization soln 3 ml inhalation Q6H #180 mL 03/26/21 montelukast 10 mg tablet 10 mg PO QHS ALLERGIES #90 tabs 03/26/21 budesonide-formoterol HFA 160 mcg-4.5 mcg/actuation aerosol inhaler (Symbicort) 2 puff inhalation BID #3 ea 06/26/21 loratadine 10 mg tablet 10 mg PO DAILY #90 tabs 06/26/21 albuterol sulfate 90 mcg/actuation aerosol inhaler (ProAir HFA) 2 puff inhalation Q6H #8.5 grams 06/27/21 insulin aspart (niacinamide)(U-100) 100 unit/mL (3 mL) subcu cartridge (Fiasp Penfill U-100 Insulin) 40 unit subcut TID 10/27/21 mometasone-formoterol HFA 200 mcg-5 mcg/actuation aerosol inhaler (Dulera) 2 puff inhalation BID 10/27/21 valacyclovir 500 mg tablet 500 mg PO DAILY 10/27/21 amlodipine 5 mg tablet 5 mg PO BID BP #180 tabs 06/02/22 furosemide 80 mg tablet (Lasix) 80 mg PO .COMPLEX edema #270 tabs 06/02/22 insulin degludec 200 unit/mL (3 mL) subcutaneous pen 120 unit subcut DAILY 06/02/22 isosorbide mononitrate 60 mg tablet,extended release 24 hr 60 mg PO BID 90 days #180 tabs 06/02/22 liraglutide 0.6 mg/0.1 mL (18 mg/3 mL) subcutaneous pen injector 1.8 mg subcut DAILY 06/02/22 metolazone 2.5 mg tablet 2.5 mg PO 2XW PRN edema #24 tabs 06/02/22 metoprolol succinate 200 mg tablet,extended release 24 hr 200 mg PO DAILY #90 tabs 06/02/22 multivitamin 1 tab PO DAILY 06/02/22 ranolazine 1,000 mg tablet,extended release,12 hr 1,000 mg PO Q12H #180 tabs 06/02/22 sacubitril 97 mg-valsartan 103 mg tablet (Entresto) 1 tab PO BID #180 tabs 06/02/22 spironolactone 25 mg tablet 25 mg PO DAILY #90 tabs 06/02/22 nitroglycerin 0.4 mg sublingual tablet (Nitrostat) 0.4 mg sublingual Q5-15M PRN Pain #100 tabs 06/03/22 apixaban 5 mg tablet (Eliquis) 5 mg PO BID Please change quantity for insurance to help cost #180 tabs 07/23/22 hydroxyzine pamoate 25 mg capsule 25 mg PO TID PRN PRN Anxiety #20 caps 10/13/22 flecainide 100 mg tablet 50 mg PO BID #180 tabs 10/23/22 Hospital Course Operations None Procedures None Summary of Care Provided Minutes Spent on Discharge: 45 Hospital Course: The patient presented to [facility] for elective admission for initiation of antiarrhythmic therapy with flecainide/Tambocor to assist with her underlying atrial dysrhythmias/fibrillation. The patient was placed on the PCU. She continued cardiac telemetry monitoring and ECG follow-up during her flecainide/Tambocor initiation at 50 mg p.o. twice daily per the recommendations of her industrial court magistrate Dr. Wright at [facility]. The patient appeared to tolerate the medication well. She remained in sinus rhythm. She had no obvious acute cardiac dysrhythmias or acute electrocardiographic changes. On this day it appeared the patient was stable for release home for continued outpatient cardiovascular follow-up. Physical Exam Const alert, oriented x3 and no apparent distress Orientation / Consciousness: awake HEENT normocephalic, head/scalp atraumatic and hearing grossly normal bilaterally Eyes PERRL, EOMs intact bilaterally, conjunctivae normal and no scleral icterus Neck full ROM, supple and no JVD Carotids: normal carotid upstroke Resp normal respiratory effort and clear to auscultation bilaterally Cardio regular rate, regular rhythm, S1 normal heart sound and S2 normal heart sound Palpation: other Rhythm: other Heart Sounds: other GI normal to inspection, nondistended, normoactive bowel sounds Extremity General Extremity: edema bilateral lower extremity Details: moderate Psych mental status grossly normal Weight / BMI Weight Weight: 405 lb 8.01 oz Body Mass Index (BMI) 0.6 ABG / Lab / Microbiology Data Result Diagrams: 10/23/22 06:19 10/23/22 06:19 Laboratory: Laboratory Results - last 24 hr 10/22/22 11:35: POC Glucose 210 H 10/22/22 17:46: POC Glucose 178 H 10/22/22 19:58: POC Glucose 132 H 10/23/22 06:19: WBC 4.8, RBC 3.91 L, Hgb 11.8 L, Hct 36.8 L, MCV 94.1, MCH 30.2, MCHC 32.1, RDW Std Deviation 48.4 H, RDW Coeff of Juan Francisco 14.1, Plt Count 193, MPV 11.3 10/23/22 06:19: Sodium 136, Potassium 4.6, Chloride 99, Carbon Dioxide 29.0, Anion Gap 8, BUN 38 H, Creatinine 1.56 H, Estim Creat Clear Calc 38.14, Est GFR (MDRD) Af Amer 44 L, Est GFR (MDRD) Non-Af 37 L, BUN/Creatinine Ratio 24.4 H, Glucose 122 H, Calcium 8.6 10/23/22 08:16: POC Glucose 114 H D/C Instructions Discharge Diet: Low fat / Low cholesterol and 1800 Calorie Control Diet Call your doctor if you observe: Fainting spells and Increased palpitations (irregular heartbeat) Please Follow Up With: Jose Palomo ELECTRONICS SYSTEM MECHANIC, ELECTRONICS SYSTEM MECHANIC-C When: [facility] to arrange follow up appointment Meaningful Use Info Meaningful Use Diagnoses (Choose all that apply): None applicable Discharge Plan Admission Admit Date/Time: 10/21/22 09:45 Primary Reason for Your Visit: Antiarrhythmic Initiation Attending Provider: Jonny Villagomez Primary Care Provider: Sanjana Chun Consulting Providers: Maria Isabel Gannon ; Maria Isabel Frankel ; Christiana Spears ; Erma Hurtado ; Joey Watkins ; Manas Pavon ; Gabo Ybarra ; Uriah Zamarripa ; Damian Villavicencio ; Ge Curtis ; Alvarez Oates ; Laverne Lema ; Carlos Mancia ; Bre Martin ; Andrea Chacko ; Jose López ; Jonny Fontenot ; Gloria Dutta ; Ti Dunn ; Allie Meng ELECTRONICS SYSTEM MECHANIC Discharge Orders/Prescriptions Prescriptions: New flecainide 100 mg Tablet 50 mg PO BID Qty: 180 3RF Continued diphenhydramine HCl [Allergy (diphenhydramine)] 25 mg capsule 25 mg PO TID PRN (Reason: ALLERGIES) levetiracetam [Keppra] 500 mg tablet 750 mg PO BID nystatin [Nystop] 100,000 unit/gram powder 1 applic TOPICAL BID Qty: 45 7RF glipizide 10 mg tablet 10 mg PO BID Linzess 145 mcg capsule 145 mcg PO DAILY ketoconazole 2 % cream 1 applic TOPICAL DAILY Fiasp Penfill U-100 Insulin 100 unit/mL (3 mL) cartridge 40 unit SC TID liraglutide 0.6 mg/0.1 mL (18 mg/3 mL) pen injector 1.8 mg SC DAILY montelukast 10 mg tablet 10 mg PO QHS Qty: 90 3RF ipratropium-albuterol 0.5 mg-3 mg(2.5 mg base)/3 mL solution for nebulization 3 ml INHALATION Q6H Qty: 180 3RF galcanezumab-gnlm 120 mg/mL pen injector 120 mg subcut QMONTH Label Comments: INJECT 120 MG INTO THE SKIN EVERY 30 DAYS. fluticasone propionate [Allergy Relief (fluticasone)] 50 mcg/actuation spray,suspension 2 spray intranasal DAILY Rx Instructions: administer into each nostril gabapentin 300 mg capsule 300 mg PO BID loperamide 2 mg tablet 2 mg PO Q6H PRN (Reason: Diarrhea) ergocalciferol (vitamin D2) 50 mcg (2,000 unit) capsule 50 mcg PO DAILY insulin degludec 200 unit/mL (3 mL) insulin pen 120 unit subcut DAILY Dulera 200-5 mcg/actuation HFA aerosol inhaler 2 puff inhalation BID valacyclovir 500 mg tablet 500 mg PO DAILY loratadine 10 mg tablet 10 mg PO DAILY Qty: 90 4RF budesonide-formoterol [Symbicort] 160-4.5 mcg/actuation HFA aerosol inhaler 2 puff INHALATION BID Qty: 3 4RF Rx Instructions: J44.9 - COPD administer with spacer, rinse mouth after each use albuterol sulfate [ProAir HFA] 90 mcg/actuation HFA aerosol inhaler 2 puff INHALATION Q6H Qty: 8.5 3RF amlodipine 5 mg tablet 5 mg PO BID Qty: 180 4RF furosemide [Lasix] 80 mg tablet 80 mg PO .COMPLEX Qty: 270 4RF Rx Instructions: 80 mg PO take 80mg in the am and 40mg in the afternoon; isosorbide mononitrate 60 mg tablet extended release 24 hr 60 mg PO BID 90 Days Qty: 180 3RF metolazone 2.5 mg tablet 2.5 mg PO 2XW PRN (Reason: edema) Qty: 24 4RF metoprolol succinate 200 mg tablet extended release 24 hr 200 mg PO DAILY Qty: 90 4RF ranolazine 1,000 mg tablet extended release 12 hr 1,000 mg PO Q12H Qty: 180 4RF Entresto 97-103 mg tablet 1 tab PO BID Qty: 180 4RF spironolactone 25 mg tablet 25 mg PO DAILY Qty: 90 4RF aspirin 81 MG tablet 81 mg PO DAILY levothyroxine 25 mcg tablet 25 mcg PO DAILY multivitamin Tablet 1 tab PO DAILY metformin 1,000 MG tablet 1,000 mg PO BID buspirone 15 mg tablet 15 mg PO TID hydroxyzine pamoate 25 mg capsule 25 mg PO TID PRN PRN (Reason: Anxiety) Qty: 20 0RF divalproex 500 mg tablet,delayed release (DR/EC) 1,000 mg PO BID omeprazole 20 mg tablet,delayed release (DR/EC) 20 mg PO DAILY Qty: 90 3RF nitroglycerin [Nitrostat] 0.4 mg tablet, sublingual 0.4 mg SUBLINGUAL Q5-15M PRN (Reason: Pain) Qty: 100 3RF Eliquis 5 mg tablet 5 mg PO BID Qty: 180 3RF Referrals / Follow Up: Sanjana Chun MD [Primary Care Provider] - Jonny Villagomez MD [Med Staff - Active Staff] - Disposition Disposition (needs filled in before D/C Order can be placed): Home, Self Care
[2022-10-23 10:16] VITALS: BP 113/67; PULSE 74; RESP 18; TEMP 36.4; O2SAT 97
[2022-10-23 10:17] VITALS: PULSE 74
[2022-10-23] MEDS: amLODIPine 5 MG Tablet PO (10:17)
[2022-10-23] MEDS: Metoprolol(XL)Succ 200 MG Tablet PO (10:17)
[2022-10-23] MEDS: SACUBITRIL/VALSARTAN 97-103 MG TABLET 1 EACH PO (10:17)
[2022-10-23] MEDS: Gabapentin 300 MG Capsule PO (10:18)
[2022-10-23] MEDS: Ranolazine 500 MG Tablet 1000 MG PO (10:18)
[2022-10-23] MEDS: Isosorbide Mononitrate 60 MG Tablet PO (10:18)
[2022-10-23] MEDS: Pantoprazole Sodium 20 MG Tablet PO (10:18)
[2022-10-23] MEDS: Loratadine 10 MG Tablet PO (10:18)
[2022-10-23] MEDS: Acyclovir 200 MG Capsule 400 MG PO (10:19)
[2022-10-23] MEDS: Divalproex (ER) 500 MG Tablet 1000 MG PO (10:19)
[2022-10-23] MEDS: Cholecalciferol (VIT D3) 25 MCG TABLET (1,000 UNITS) 50 MCG PO (10:19)
[2022-10-23] MEDS: APIXABAN 5 MG TABLET PO (10:19)
[2022-10-23] MEDS: levETIRAcetam 500 MG Tablet 750 MG PO (10:19)
[2022-10-23] MEDS: Aspirin E.C. 81 MG Tablet PO (10:19)
[2022-10-23] MEDS: Flecainide 100 MG Tablet 50 MG PO (10:20)
[2022-10-23] MEDS: Menthol/Lanolin/Calamine/Znox 113 GM Tube 1 APPLIC TOPICAL (10:21)
[2022-10-23] MEDS: Furosemide 100 MG/10 ML Vial 60 MG IV (10:22)
[2022-10-23] MEDS: Insulin Glargine-YFGN 100 UNIT/ML Pen 120 UNIT SC (10:31)
[2022-10-23] MEDS: Fluticasone 0.05% 1 SPRAY NASAL.SRY 2 SPRAY NASAL (10:31)
[2022-10-23 11:30] VITALS: O2SAT 91; O2SAT 95
[2022-10-23 12:06] LABS: Bedside Glucose 176 mg/dL (74-106)
[2022-10-23 13:51] VITALS: BP 103/58; PULSE 78; RESP 18; TEMP 36.6; O2SAT 95
== END 2022-10-23 15:25 | disposition home or self-care (01) | DRG 949 ==
PROVIDERS: Internal Medicine; Admitting Provider Internal Medicine Cardiovascular Disease; PCP Family Medicine; Referring Provider Internal Medicine Cardiovascular Disease; Visit Provider Internal Medicine Cardiovascular Disease
DX: Z51.81 Encounter for therapeutic drug level monitoring (principal); I50.32 Chronic diastolic (congestive) heart failure; I47.1 Supraventricular tachycardia; Z68.44 Body mass index [BMI] 60.0-69.9, adult; I11.0 Hypertensive heart disease with heart failure; I48.0 Paroxysmal atrial fibrillation; G40.909 Epilepsy, unspecified, not intractable, without status epilepticus; E11.9 Type 2 diabetes mellitus without complications; J44.9 Chronic obstructive pulmonary disease, unspecified; E66.01 Morbid (severe) obesity due to excess calories; G43.709 Chronic migraine without aura, not intractable, without status migrainosus; E03.9 Hypothyroidism, unspecified; E78.00 Pure hypercholesterolemia, unspecified; I34.0 Nonrheumatic mitral (valve) insufficiency; I25.10 Atherosclerotic heart disease of native coronary artery without angina pectoris; J45.20 Mild intermittent asthma, uncomplicated; K21.9 Gastro-esophageal reflux disease without esophagitis; J30.9 Allergic rhinitis, unspecified; Z79.01 Long term (current) use of anticoagulants; Z79.84 Long term (current) use of oral hypoglycemic drugs; Z79.899 Other long term (current) drug therapy; I49.3 Ventricular premature depolarization; Z79.82 Long term (current) use of aspirin
CPT/HCPCS: 36415; 80048; 80053; 82962; 83735; 84100; 84443; 85025; 85027; 93005; 94640; 97802; A4216; J1940; J2405

== ENCOUNTER → 2023-01-21 | Outpatient (CLI) | payer OTHER, SELFPAY ==
[2023-01-21 17:21] LABS: Absolute Lymphocyte Count 1.93 X10^3/uL (0.83-4.51); Absolute Neutrophil Count 3.4 X10^3/uL (2.0-7.7); Basophil# 0.04 X10^3/uL; Basophil% 0.6 % (0-1); Eosinophil# 0.43 X10^3/uL; Eosinophils% 6.8 % (0-5); Hematocrit 40.7 % (37-47); Hemoglobin 13.1 g/dL (12.0-15.0); Lymphocyte # 1.93 X10^3/ul (0.83-4.51); Lymphocyte % 30.3 % (19-41); Mean Corp Hgb Conc 32.2 g/dL (32-36); Mean Corpuscular Hgb 29.4 pg (27.0-32.0); Mean Corpuscular Volume 91.5 fL (81-99); Mean Platelet Vol. 11.2 fl (6.2-12.0); Monocyte% 7.8 % (0-10); NRBC Flagged by Analyzer 0 % (0-5); Neutrophil # 3.41 X10^3/uL (2.7-7.7); Neutrophil % 53.6 % (47-70); Platelet Count 193 K/mm3 (150-450); RBC Distribution Width CV 14.2 % (11.6-14.6); RBC Distribution Width SD 47.8 fl (35.1-43.9); Red Blood Count 4.45 M/mm3 (4.2-5.4); White Blood Count 6.4 K/mm3 (4.4-11.0)
[2023-01-21 18:09] LABS: AST(SGOT) 9 U/L (15-37); Alanine Aminotransfer ALT/SGPT 25 U/L (13-56); Albumin, Serum 3.5 g/dL (3.2-5.0); Alkaline Phosphatase 61 U/L (45-117); Anion Gap 9 (5-15); BUN 24 mg/dL (7-18); BUN/Creat Ratio 25.6 RATIO (10-20); Bilirubin, Direct 0.08 mg/dL (0.00-0.30); Calcium,Total 9.4 mg/dL (8.5-10.1); Chloride 106 mmol/L (98-107); Cholesterol 263 mg/dL (200); Creatinine, Serum 0.94 mg/dL (0.55-1.02); EST Glomerular Filtration Rate 66 mL/min (>60); Est Glom Filt Rate - Afr Amer 80 mL/min (>60); Globulin 3.6 g/dL (2.2-4.2); Glucose 123 mg/dL (74-106); High Density Lipoprotein 34 mg/dL; Potassium 4.2 mmol/L (3.5-5.1); Protein, Total 7.1 g/dL (6.4-8.2); Sodium Level 141 mmol/L (136-145); Triglycerides 331 mg/dL; Very Low Density Lipoprotein 66 mg/dL (5-40)
== END | disposition home or self-care (01) ==
LOC: LAB 16:58
PROVIDERS: PCP Family Medicine; Visit Provider Nurse Practitioner Family
DX: I10 Essential (primary) hypertension (principal); E11.9 Type 2 diabetes mellitus without complications; Z79.899 Other long term (current) drug therapy; E78.5 Hyperlipidemia, unspecified; D64.9 Anemia, unspecified
CPT/HCPCS: 36415; 80048; 80061; 80076; 85025

== ENCOUNTER → 2023-08-19 | Outpatient (CLI) | payer OTHER, SELFPAY ==
[2023-08-19 17:04] LABS: Absolute Lymphocyte Count 2.65 X10^3/uL (0.83-4.51); Basophil# 0.06 X10^3/uL; Basophil% 0.8 % (0-1); Eosinophil# 0.52 X10^3/uL; Eosinophils% 6.5 % (0-5); Hematocrit 43.7 % (37-47); Hemoglobin 13.4 g/dL (12.0-15.0); Lymphocyte # 2.65 X10^3/ul (0.83-4.51); Lymphocyte % 33.3 % (19-41); Mean Corp Hgb Conc 30.7 g/dL (32-36); Mean Corpuscular Hgb 27.7 pg (27.0-32.0); Mean Corpuscular Volume 90.5 fL (81-99); Mean Platelet Vol. 10.6 fl (6.2-12.0); Monocyte# 0.69 X10^3/uL; Monocyte% 8.7 % (0-10); NRBC Flagged by Analyzer 0 % (0-5); Neutrophil % 50.2 % (47-70); Platelet Count 330 K/mm3 (150-450); RBC Distribution Width CV 14.8 % (11.6-14.6); RBC Distribution Width SD 49.1 fl (35.1-43.9); Red Blood Count 4.83 M/mm3 (4.2-5.4)
[2023-08-19 18:09] LABS: BNP,B-Type NATRIURETIC PEPTIDE 6.1 pg/mL (0-100)
[2023-08-19 18:34] LABS: Anion Gap 8 (5-15); BUN 23 mg/dL (7-18); BUN/Creat Ratio 27.1 RATIO (10-20); Calcium,Total 9.2 mg/dL (8.5-10.1); Chloride 107 mmol/L (98-107); Creatinine, Serum 0.85 mg/dL (0.55-1.02); EST Glomerular Filtration Rate 74 mL/min (>60); Est Glom Filt Rate - Afr Amer 89 mL/min (>60); Glucose 121 mg/dL (74-106); Potassium 4.3 mmol/L (3.5-5.1); Sodium Level 139 mmol/L (136-145)
== END | disposition home or self-care (01) ==
LOC: LAB 16:43
PROVIDERS: PCP Family Medicine; Referring Provider Nurse Practitioner Family; Visit Provider Nurse Practitioner Family
DX: R06.09 Other forms of dyspnea (principal); D64.9 Anemia, unspecified; R07.9 Chest pain, unspecified
CPT/HCPCS: 36415; 80048; 83880; 85025

== ENCOUNTER → 2025-06-27 | Outpatient (CLI) | payer OTHER, MEDICAID, SELFPAY ==
[2025-06-27 17:41] LABS: Anion Gap 11 (5-15); BUN 21 mg/dL (4-19); BUN/Creat Ratio 24.1 RATIO (10-20); Calcium,Total 9.7 mg/dL (7.6-11.0); Carbon Dioxide 25.8 mmol/L (21.0-32.0); Chloride 102 mmol/L (98-108); Glucose 110 mg/dL (70-99); Potassium 4.1 mmol/L (3.3-5.1)
== END | disposition home or self-care (01) ==
LOC: LAB 16:02
PROVIDERS: PCP Family Medicine; Referring Provider Student in an Organized Health Care Education/Training Program; Visit Provider Student in an Organized Health Care Education/Training Program
DX: I48.0 Paroxysmal atrial fibrillation (principal); I51.89 Other ill-defined heart diseases
CPT/HCPCS: 36415; 80048